=== PATIENT | female | born 1945 | race Caucasian/White ===

== ENCOUNTER 2016-09-12 15:19 | Emergency (ER) | payer MEDICARE ==
--- NOTE | 2016-09-12 15:43 | ED ---
General Adult HPI - General Chief complaint: Head Injury Stated complaint: fell, hit head Time Seen by Provider: 09/12/16 15:25 Source: patient, RN notes reviewed Mode of arrival: ambulatory Limitations: no limitations - History of Present Illness Initial comments: This is a 71-year-old female who is sitting in a chair and the chair broke and she fell sideways and hit her head against a china cabinet. Patient states there was a significant bump there initially and it is since gone down. Patient does complain of a little bit of a headache and nausea. Patient states she is on Plavix currently. Patient denies any loss of consciousness or being dazed. Patient denies any neck pain patient denies any numbness weakness. Patient has full range of motion of her neck. Patient denies any other injury at this time. Patient denies any sites of bleeding. - Related Data Home Medications Medication Instructions Recorded Confirmed Albuterol Inhaler [Ventolin Hfa 2 puff INHALATION RT-QID 09/12/16 09/12/16 Inhaler] Allopurinol [Zyloprim] 300 mg PO DAILY 09/12/16 09/12/16 Aspirin EC [Ecotrin] 325 mg PO DAILY 09/12/16 09/12/16 Augmented Betamethasone Dip 0.05% 1 applic TOPICAL BID PRN 09/12/16 09/12/16 Oint Bisoprolol [Zebeta] 5 mg PO HS 09/12/16 09/12/16 Budesonide-Formot 160-4.5 Mcg 2 puff INHALATION RT-BID 09/12/16 09/12/16 [Symbicort 160-4.5 Mcg Inhaler] Bumetanide [Bumex] 1 mg PO DAILY 09/12/16 09/12/16 Clopidogrel [Plavix] 75 mg PO DAILY 09/12/16 09/12/16 Latanoprost [Xalatan 0.005%] 1 drop BOTH EYES HS 09/12/16 09/12/16 Levofloxacin [Levaquin] 500 mg PO DAILY 09/12/16 09/12/16 Levothyroxine Sodium [Levoxyl] 175 mcg PO DAILY 09/12/16 09/12/16 Meloxicam [Mobic] 15 mg PO DAILY 09/12/16 09/12/16 Potassium Chloride ER [K-Dur 20] 20 meq PO DAILY 09/12/16 09/12/16 Simvastatin [Zocor] 20 mg PO HS 09/12/16 09/12/16 amLODIPine [Norvasc] 5 mg PO DAILY 09/12/16 09/12/16 Allergies Allergy/AdvReac Type Severity Reaction Status Date / Time Iodinated Contrast Media - Allergy Rash/Hives/ Verified 09/12/16 16:46 Oral and Itching latex Allergy Rash/Hives/ Verified 09/12/16 16:46 Itching morphine Allergy Rash/Hives/ Verified 09/12/16 16:46 Itching shellfish derived [Shellfish] Allergy Rash/Hives/ Verified 09/12/16 16:46 Itching Review of Systems ROS Statement: Those systems with pertinent positive or pertinent negative responses have been documented in the HPI. ROS Other: All systems not noted in ROS Statement are negative. Past Medical History Past Medical History: Cancer, CVA/TIA, Hyperlipidemia, Hypertension, Thyroid Disorder History of Any Multi-Drug Resistant Organisms: None Reported Past Surgical History: Orthopedic Surgery Additional Past Surgical History / Comment(s): colectomy, R lower lung removed Past Psychological History: No Psychological Hx Reported Smoking Status: Former smoker Past Alcohol Use History: Occasional Past Drug Use History: None Reported General Exam - General Exam Comments Initial Comments: GENERAL Patient is well-developed and well-nourished. Patient is in mild distress. Patient's scalp has a small hematoma on the left frontal parietal region. It is mildly tender there is no bleeding. There is no abrasion. Eyes Patient's pupils are equal and round. Extraocular motion is intact SKIN Unremarkable NEURO The patient is alert and oriented 3 PYSCH Patient has normal interpersonal interactions. MUSCULOSKELETAL No gross amounts were noted Limitations: no limitations Course Vital Signs 09/12/16 15:24 Temperature 98 F Pulse Rate 70 Respiratory 20 Rate Blood Pressure 144/65 O2 Sat by Pulse 98 Oximetry Medical Decision Making - Medical Decision Making CT of the brain shows no acute abnormality. Disposition Clinical Impression: Head injury Disposition: HOME SELF-CARE Condition: Good Instructions: Concussion (ED) Referrals: Nonstaff,Physician [Primary Care Provider] - 1-2 days Time of Disposition: 17:10
--- NOTE | 2016-09-12 16:17 | CT ---
EXAMINATION TYPE: CT brain wo con DATE OF EXAM: 09/12/2016 4:11 PM COMPARISON: NONE HISTORY: fall today with frontal injury CT DLP: [address] of the brain was performed. The ventricles, basal cisterns and sulci overlying the cerebral convexities demonstrate mild enlargem ent. There is no evidence for intracranial hemorrhage or sulcal effacement. There is decreased attenuation about the periventricular white matter and deep white matter of both c erebral hemispheres, compatible with chronic small vessel ischemia. Differential diagnosis does inclu de demyelination. No mass effects are seen.No midline shift. Osseous calvarium is intact. Mucosal thickening left maxillary sinus If symptoms persist consider MRI. IMPRESSION: 1. Age related atrophic and chronic small vessel ischemic change without acute intracranial process s een at this time.
[2016-09-12 17:43] VITALS: BP 147/68; PULSE 71; RESP 18; TEMP 97
== END 2016-09-12 17:35 | disposition home or self-care (01) ==
LOC: EC 15:19
DX: S00.03XA Contusion of scalp, initial encounter (principal); E78.5 Hyperlipidemia, unspecified; E07.9 Disorder of thyroid, unspecified; I10 Essential (primary) hypertension; Z85.9 Personal history of malignant neoplasm, unspecified; Z87.891 Personal history of nicotine dependence; Z91.040 Latex allergy status; Z91.041 Radiographic dye allergy status; Z88.5 Allergy status to narcotic agent; Z91.013 Allergy to seafood; Z86.73 Personal history of transient ischemic attack (TIA), and cerebral infarction without residual deficits; Z79.899 Other long term (current) drug therapy; W18.09XA Striking against other object with subsequent fall, initial encounter
CPT/HCPCS: 70450; 99284

== ENCOUNTER 2017-11-23 22:21 | Observation (INO) | payer MEDICARE ==
[2017-11-23] MEDS ORDERED: IBUPROFEN 800 MG TAB PO STA (23:39)
[2017-11-23] MEDS ORDERED: Acetaminophen-Codeine 300-30mg TAB PO STA (23:39)
[2017-11-23] MEDS ORDERED: ACETAMINOPHEN TAB 325 MG TAB PO STA (23:39)
[2017-11-23 23:50] LABS: Appearance,Urine Cloudy (Clear); Bilirubin,Urine Negative (Negative); Blood,Urine Negative (Negative); Color,Urine Yellow; Glucose,Urine (UA) Negative (Negative); Ketones,Urine Negative (Negative); Leukocyte Esterase,Urine Large (Negative); Mucus,Urine Rare /hpf; Nitrite,Urine Negative (Negative); PH, Urine 5.5 (5.0-8.0); Protein,Urine Trace (Negative); RBC,Urine 3 /hpf (0-5); Specific Gravity,Urine 1.021 (1.001-1.035); Squamous Epithelial Cell,Urine 4 /hpf (0-4); WBC,Urine 24 /hpf (0-5)
--- NOTE | 2017-11-23 23:53 | ED ---
General Adult HPI - General Chief complaint: Urogenital Stated complaint: Urine retention Time Seen by Provider: 11/23/17 22:57 Source: patient, RN notes reviewed, old records reviewed Mode of arrival: ambulatory Limitations: no limitations - History of Present Illness Initial comments: This is a 72-year-old female the ER for evaluation. Patient has abdominal pain right flank pain fever chills and dysuria. Patient states she has medical history of significant UTI and this does feel similar. Patient denies any other significant abdominal pain no nausea or vomiting. No recent travel history or sick contacts. - Related Data Home Medications Medication Instructions Recorded Confirmed Albuterol Inhaler [Ventolin Hfa 2 puff INHALATION RT-QID 09/12/16 11/23/17 Inhaler] Allopurinol [Zyloprim] 300 mg PO DAILY 09/12/16 11/23/17 Aspirin EC [Ecotrin] 325 mg PO DAILY 09/12/16 11/23/17 Augmented Betamethasone Dip 0.05% 1 applic TOPICAL BID PRN 09/12/16 11/23/17 Oint Bisoprolol [Zebeta] 5 mg PO HS 09/12/16 11/23/17 Budesonide-Formot 160-4.5 Mcg 2 puff INHALATION RT-BID 09/12/16 11/23/17 [Symbicort 160-4.5 Mcg Inhaler] Bumetanide [Bumex] 1 mg PO DAILY 09/12/16 11/23/17 Latanoprost [Xalatan 0.005%] 1 drop BOTH EYES HS 09/12/16 11/23/17 Meloxicam [Mobic] 15 mg PO DAILY 09/12/16 11/23/17 Potassium Chloride ER [K-Dur 20] 20 meq PO DAILY 09/12/16 11/23/17 Simvastatin [Zocor] 20 mg PO HS 09/12/16 11/23/17 Clobetasol Propionate [Clobex .05% 1 applic TOPICAL BID PRN 11/23/17 11/23/17 Shampoo] Levothyroxine Sodium [Synthroid] 150 mcg PO DAILY 11/23/17 11/23/17 Losartan Potassium [Cozaar] 100 mg PO DAILY 11/23/17 11/23/17 Mirabegron [Myrbetriq] 50 mg PO DAILY 11/23/17 11/23/17 Allergies Allergy/AdvReac Type Severity Reaction Status Date / Time clindamycin Allergy Rash/Hives Verified 11/23/17 23:27 Iodinated Contrast- Oral and Allergy Rash/Hives/ Verified 11/23/17 23:27 IV Dye Itching [Iodinated Contrast Media - Oral and] latex Allergy Rash/Hives/ Verified 11/23/17 23:27 Itching morphine Allergy Rash/Hives/ Verified 11/23/17 23:27 Itching shellfish derived [Shellfish] Allergy Rash/Hives/ Verified 11/23/17 23:27 Itching Review of Systems ROS Statement: Those systems with pertinent positive or pertinent negative responses have been documented in the HPI. ROS Other: All systems not noted in ROS Statement are negative. Past Medical History Past Medical History: Cancer, CVA/TIA, Hyperlipidemia, Hypertension, Thyroid Disorder History of Any Multi-Drug Resistant Organisms: None Reported Past Surgical History: Orthopedic Surgery Additional Past Surgical History / Comment(s): colectomy, R lower lung removed Past Psychological History: No Psychological Hx Reported Smoking Status: Former smoker Past Alcohol Use History: None Reported Past Drug Use History: None Reported General Exam Limitations: no limitations General appearance: alert, in no apparent distress Head exam: Present: atraumatic, normocephalic, normal inspection Eye exam: Present: normal appearance, PERRL, EOMI. Absent: scleral icterus, conjunctival injection, periorbital swelling ENT exam: Present: normal exam, mucous membranes moist Neck exam: Present: normal inspection. Absent: tenderness, meningismus, lymphadenopathy Respiratory exam: Present: normal lung sounds bilaterally. Absent: respiratory distress, wheezes, rales, rhonchi, stridor Cardiovascular Exam: Present: regular rate, normal rhythm, normal heart sounds. Absent: systolic murmur, diastolic murmur, rubs, gallop, clicks GI/Abdominal exam: Present: soft, normal bowel sounds. Absent: distended, tenderness, guarding, rebound, rigid Extremities exam: Present: normal inspection, full ROM, normal capillary refill. Absent: tenderness, pedal edema, joint swelling, calf tenderness Back exam: Present: normal inspection Neurological exam: Present: alert, oriented X3, CN II-XII intact Psychiatric exam: Present: normal affect, normal mood Skin exam: Present: warm, dry, intact, normal color. Absent: rash Course Vital Signs 11/23/17 11/23/17 22:24 23:45 Temperature 98.4 F 101.4 F H Pulse Rate 100 98 Respiratory 18 19 Rate Blood Pressure 145/79 158/67 O2 Sat by Pulse 96 96 Oximetry - Reevaluation(s) Reevaluation #1: 11/24/17 01:21 Patient feels better, nausea no fever, mild cough. Patient is positive pneumonia. Medical Decision Making - Medical Decision Making 72 female the ER, positive fever positive pneumonia is identified. Weakness fever or chills. Patient to be admitted for IV antibiotics - Lab Data Lab Results 11/23/17 Range/Units 22:40 Urine Color Yellow Urine Appearance Cloudy H (Clear) Urine pH 5.5 (5.0-8.0) Ur Specific Wana 1.021 (1.001-1.035) Urine Protein Trace H (Negative) Urine Glucose (UA) Negative (Negative) Urine Ketones Negative (Negative) Urine Blood Negative (Negative) Urine Nitrite Negative (Negative) Urine Bilirubin Negative (Negative) Urine Urobilinogen 2.0 (<2.0) mg/dL Ur Leukocyte Esterase Large H (Negative) Urine RBC 3 (0-5) /hpf Urine WBC 24 H (0-5) /hpf Ur Squamous Epith Cells 4 (0-4) /hpf Urine Mucus Rare H (None) /hpf - Radiology Data Radiology results: report reviewed (CT abdomen pelvis is negative chest x-ray positive pneumonia.), image reviewed Disposition Clinical Impression: Fever, Community acquired pneumonia Disposition: ADMITTED IP TO THIS [facility] Condition: Good Is patient prescribed a controlled substance at d/c from ED?: No Referrals: None,Stated [Primary Care Provider] - 1-2 days
--- NOTE | 2017-11-24 00:20 | CT ---
EXAMINATION TYPE: CT abdomen pelvis wo con DATE OF EXAM: 11/24/2017 COMPARISON: NONE HISTORY: Change in urination CT DLP: 2295.40 mGycm Automated exposure control for dose reduction was used. TECHNIQUE: Helical acquisition of images was performed from the lung bases through the pelvis. FINDINGS: There is a 7 x 5 cm area of consolidation at the posterior medial right lung base. There are apparent surgical clips in the right lower lobe. There is pleural thickening at the right lung base. There ar e small hiatal hernia. Liver shows no focal defect. Gallbladder is contracted. There are small multiple calcified splenic gr anulomata. There is no pancreatic mass. The bile ducts are not dilated. There is no adrenal mass. Kidneys have normal size. There is probably a 2 cm cortical cyst on the pos terior left kidney. There is 3 cm cortical cyst posterior right kidney. The ureters are not dilated. There is no hydronephrosis. There is no retroperitoneal adenopathy. Abdominal aorta is atheromatous. There is no ascites. Bladder distends smoothly. There is no evidence of a pelvic mass. There are clip s from surgery in the rectosigmoid colon. Appendix is not definitely seen. There is no sign of append icitis. I see no bony destructive process. IMPRESSION: PREVIOUS RIGHT LUNG SURGERY. RIGHT LOWER LOBE PULMONARY CONSOLIDATION WITH PLEURAL THICKENING. THIS C OULD RELATE TO BRONCHOPNEUMONIA. TUMOR IS NOT EXCLUDED. NO RENAL OBSTRUCTION. BILATERAL RENAL CYSTS. NO ACUTE ABNORMALITY SEEN WITHIN THE ABDOMEN AND PELVIS.
[2017-11-24] MEDS ORDERED: LEVOFLOXACIN 750MG-D5W PMX 750 MG in DEXTROSE/WATER 1 150ML.BAG IVPB STA (00:47)
[2017-11-24] MEDS ORDERED: SODIUM CHLORIDE 0.9% 500 ML IV STA (00:47)
[2017-11-24] MEDS ORDERED: IPRATROPIUM-ALBUTEROL 3 ML NEB INHALATION STA (00:47)
[2017-11-24] MEDS ORDERED: SODIUM CHLORIDE 0.9% 1,000 ML IV STA ×2 (00:47)
[2017-11-24] MEDS ORDERED: PNEUMONIA PROTOCOL UTILIZED 1 EACH MISC PO PRN (01:15)
[2017-11-24 01:21] LABS: Basophils # (A) 0.1 k/uL (0-0.2); Basophils % (A) 0 %; Eosinophils # (A) 0.1 k/uL (0-0.7); Eosinophils % (A) 1 %; HGB 11.2 gm/dL (11.4-16.0); Lymphocytes # (A) 1.1 k/uL (1.0-4.8); Lymphocytes % (A) 11 %; MCH 29.2 pg (25.0-35.0); MCHC 33.1 g/dL (31.0-37.0); MCV 88.3 fL (80.0-100.0); Mean Platelet Volume 7.1; Monocytes # (A) 0.8 k/uL (0-1.0); Monocytes % (A) 8 %; Neutrophils # (A) 7.8 k/uL (1.3-7.7); Neutrophils % (A) 77 %; Platelet Count 279 k/uL (150-450); RBC 3.85 m/uL (3.80-5.40); RDW 14.9 % (11.5-15.5); WBC 10.1 k/uL (3.8-10.6)
[2017-11-24 01:29] LABS: Albumin 3.4 g/dL (3.5-5.0); Magnesium 1.9 mg/dL (1.6-2.3); Potassium 4.3 mmol/L (3.5-5.1); Total Bilirubin 0.3 mg/dL (0.2-1.3); Total Protein 5.9 g/dL (6.3-8.2)
[2017-11-24] MEDS: SODIUM CHLORIDE 0.9% 1,000 ML IV SCH ×2 (01:31→10:47)
[2017-11-24 01:33] LABS: Partial Thromboplastin Time 24.7 sec (22.0-30.0)
[2017-11-24 01:42] LABS: Creatine Kinase 463 U/L (30-135)
[2017-11-24 01:55] LABS: Troponin I <0.012 ng/mL (0.000-0.034)
[2017-11-24 01:56] LABS: Creatine Kinase MB 2.5 ng/mL (0.0-2.4)
--- NOTE | 2017-11-24 02:13 | XR ---
EXAMINATION TYPE: XR chest 2V DATE OF EXAM: 11/24/2017 COMPARISON: NONE HISTORY: Fever and difficulty breathing TECHNIQUE: Frontal and lateral views of the chest are obtained. FINDINGS: There is blunting of right costophrenic angle. There is evidence of mild infiltrate at the right lung base. The left lung is clear. There is no gross heart failure. IMPRESSION: Right pleural effusion and right lower lobe infiltrate.
[2017-11-24 03:42] VITALS: RESP 16
[2017-11-24] MEDS ORDERED: CLOBETASOL PROP 0.05% OINT 15GM TOPICAL PRN (05:31)
--- NOTE | 2017-11-24 06:22 | P.HPIM ---
History of Present Illness H&P Date: 11/24/17 Chief Complaint: Chills 72-year-old female with past medical history of colon cancer and hypertension. Patient presented to the hospital due to 4 day history of chills. She has traveled from [place] to here to visit her family and since Thursday when she arrived she has been having chills and feeling cold but surely during the night. Otherwise denies any symptoms of upper respiratory infection. She reported some brief period of right flank pain which she thought this from arthritis she said there was mainly discomfort 6-7 out of 10 in severity that happened on Thursday night nonradiating pain and went away on its own. She reports some changes in her urine was darker now but otherwise denies any dysuria. She always has frequent urine. And she recalls history of recurrent urinary tract infection last time was 3 years ago. She denies using any catheter home. Her daughter took her temperature and was high for which she decided come to the hospital for further care. Patient also recalls lung surgery where they removed a wedge piece of the right lower lung due to suspicion of cancer however eventually was diagnosed with pneumonia. Currently she feels way better and is asking about when she can go home. Patient otherwise denies any headache nausea or vomiting denies any chest pain or trouble breathing denies any coughing denies any sore throat or runny nose denies any hearing or vision changes denies any focal neurologic deficits Review of Systems Pertinent positives as noted in HPI. All other systems were reviewed and are negative Past Medical History Past Medical History: Cancer, CVA/TIA, Hyperlipidemia, Hypertension, Thyroid Disorder History of Any Multi-Drug Resistant Organisms: None Reported Past Surgical History: Orthopedic Surgery Additional Past Surgical History / Comment(s): colectomy, R lower lung removed Past Anesthesia/Blood Transfusion Reactions: No Reported Reaction Past Psychological History: No Psychological Hx Reported Smoking Status: Former smoker Past Alcohol Use History: None Reported Past Drug Use History: None Reported - Past Family History Mother Family Medical History: Myocardial Infarction ([place]) Father Family Medical History: Diabetes Mellitus Medications and Allergies Home Medications Medication Instructions Recorded Confirmed Type Albuterol Inhaler [Ventolin Hfa 2 puff INHALATION RT-QID 09/12/16 11/23/17 History Inhaler] Allopurinol [Zyloprim] 300 mg PO DAILY 09/12/16 11/23/17 History Aspirin EC [Ecotrin] 325 mg PO DAILY 09/12/16 11/23/17 History Augmented Betamethasone Dip 0.05% 1 applic TOPICAL BID PRN 09/12/16 11/23/17 History Oint Bisoprolol [Zebeta] 5 mg PO HS 09/12/16 11/23/17 History Budesonide-Formot 160-4.5 Mcg 2 puff INHALATION RT-BID 09/12/16 11/23/17 History [Symbicort 160-4.5 Mcg Inhaler] Bumetanide [Bumex] 1 mg PO DAILY 09/12/16 11/23/17 History Latanoprost [Xalatan 0.005%] 1 drop BOTH EYES HS 09/12/16 11/23/17 History Meloxicam [Mobic] 15 mg PO DAILY 09/12/16 11/23/17 History Potassium Chloride ER [K-Dur 20] 20 meq PO DAILY 09/12/16 11/23/17 History Simvastatin [Zocor] 20 mg PO HS 09/12/16 11/23/17 History Clobetasol Propionate [Clobex .05% 1 applic TOPICAL BID PRN 11/23/17 11/23/17 History Shampoo] Levothyroxine Sodium [Synthroid] 150 mcg PO DAILY 11/23/17 11/23/17 History Losartan Potassium [Cozaar] 100 mg PO DAILY 11/23/17 11/23/17 History Mirabegron [Myrbetriq] 50 mg PO HS 11/23/17 11/24/17 History Allergies Allergy/AdvReac Type Severity Reaction Status Date / Time clindamycin Allergy Rash/Hives Verified 11/23/17 23:27 Iodinated Contrast- Oral and Allergy Rash/Hives/ Verified 11/23/17 23:27 IV Dye Itching [Iodinated Contrast Media - Oral and] latex Allergy Rash/Hives/ Verified 11/23/17 23:27 Itching morphine Allergy Rash/Hives/ Verified 11/23/17 23:27 Itching shellfish derived [Shellfish] Allergy Rash/Hives/ Verified 11/23/17 23:27 Itching Physical Exam Vitals: Vital Signs Temp Pulse Pulse Resp BP BP Pulse Ox 11/24/17 03:15 97.6 F 73 16 119/61 97 11/24/17 03:02 72 11/24/17 02:53 74 97 11/24/17 02:34 98.1 F 72 18 98/49 97 11/24/17 01:32 82 18 96/45 95 11/23/17 23:45 101.4 F H 98 19 158/67 96 11/23/17 22:24 98.4 F 100 18 145/79 96 Intake and Output 11/23/17 11/23/17 11/24/17 14:59 22:59 06:59 Other: Voiding Method Toilet Weight 128.367 kg Constitutional: No acute distress, conversant, pleasant Eyes: Anicteric sclerae, moist conjunctiva, no lid-lag Pupils equal round reactive to light ENMT: NC/AT Oropharynx clear, no erythema, or exudates Neck: Supple, FROM, no masses, or JVD No carotid bruits No thyromegaly Lungs: Clear to auscultation Clear to percussion Normal respiratory effort, no accessory muscle use Cardiovascular: Heart regular in rate and rhythm, No murmurs, gallops, or rubs No peripheral edema Abdominal: Soft, obese limiting exam Nontender, no guarding, rebound or rigidity Abdomen moving with respiration Normoactive bowel sounds No hepatomegaly, No splenomegaly No palpable mass No abdominal wall hernia noted Skin: Normal temperature, tone, texture, turgor No induration No subcutaneous nodules No ulcers Patient has lesions related to psoriasis, with the big one covering most of the surface of the anterior potts of the left leg Extremities: No digital cyanosis No clubbing Pedal pulses intact and symmetrical Radial pulses intact and symmetrical No calf tenderness Psychiatric: Alert and oriented to person, place and time Appropriate affect fair judgment Neuro Muscles Strength 5/5 in all 4 extremities Sensation to light touch grossly present throughout Cranial nerves II-XII grossly intact No focal sensory deficits Lymphatics: no palpable cervical or supraclavicular , or inguinal lymph nodes Results CBC & Chem 7: 11/24/17 00:45 11/24/17 00:45 Labs: Abnormal Lab Results - Last 24 Hours (Table) 11/23/17 11/24/17 11/24/17 Range/Units 22:40 00:45 00:45 Hgb 11.2 L (11.4-16.0) gm/dL Neutrophils # 7.8 H (1.3-7.7) k/uL Sodium (137-145) mmol/L BUN (7-17) mg/dL Glucose (74-99) mg/dL Total Creatine Kinase 463 H (30-135) U/L CK-MB (CK-2) 2.5 H* (0.0-2.4) ng/mL Total Protein (6.3-8.2) g/dL Albumin (3.5-5.0) g/dL Urine Appearance Cloudy H (Clear) Urine Protein Trace H (Negative) Ur Leukocyte Esterase Large H (Negative) Urine WBC 24 H (0-5) /hpf Urine Mucus Rare H (None) /hpf 11/24/17 Range/Units 00:45 Hgb (11.4-16.0) gm/dL Neutrophils # (1.3-7.7) k/uL Sodium 136 L (137-145) mmol/L BUN 25 H (7-17) mg/dL Glucose 111 H (74-99) mg/dL Total Creatine Kinase (30-135) U/L CK-MB (CK-2) (0.0-2.4) ng/mL Total Protein 5.9 L (6.3-8.2) g/dL Albumin 3.4 L (3.5-5.0) g/dL Urine Appearance (Clear) Urine Protein (Negative) Ur Leukocyte Esterase (Negative) Urine WBC (0-5) /hpf Urine Mucus (None) /hpf Thrombosis Risk Factor Assmnt - Choose All That Apply Each Factor Represents 1 point: Obesity (BMI >25), Serious lung disease incl. pneumonia (< 1month) Other Risk Factors: Yes Each Risk Factor Represents 2 Points: Age 61-74 years Thrombosis Risk Factor Assessment Total Risk Factor Score: 4 Thrombosis Risk Factor Assessment Level: Moderate Risk Assessment and Plan Assessment: 72-year-old female with history of colon cancer and hypertension. Presented due to chills for the past 4 days with fever and Thursday nights, she was also having some dark urine she was concerned regarding urinary tract infection for which she decided come the hospital. She is currently visiting from [place] and staying with her family. Patient admitted for suspected pneumonia however she is denying any clinical symptoms of pneumonia. Plan: #Acute urinary tract infection, no chronic catheter Patient with history of multiple UTIs in the past last attack 3 years ago Patient started on Bactrim Follow-up cultures Gentle IV fluid hydration #Mild anemia Patient denies any GI bleeding Follow-up outpatient #Psoriasis Somatic control Consider emollient #DVT prophylaxis on Lovenox subcu #Obstructive sleep apnea Patient encouraged to use CPAP #Hypertension Currently controlled continue home meds #History of asthma/COPD Continue with breathing treatments Patient not on home oxygen DuoNeb's when necessary as needed #Diet as tolerated #Hypothyroidism Currently stable Continue with levothyroxine Patient is eager to go home, will continue to monitor the patient vital signs and morning labs We'll monitor the patient's if she spikes any fevers and follow-up on cultures Surrogate decision-maker: Patient daughter CODE STATUS: Full code Discussed with: Patient, ER, Anticipated discharge: [address]: Home A total of55 minutes was spent on the care of this complex patient more than 50 % of the time was spent in counseling and care coordination.
[2017-11-24 06:23] VITALS: BP 121/57; TEMP 97.5
[2017-11-24] MEDS ORDERED: LEVOTHYROXINE 75 MCG TAB PO SCH (06:30)
[2017-11-24] MEDS: IPRATROPIUM-ALBUTEROL 3 ML NEB INHALATION SCH ×2 (07:07→10:54)
[2017-11-24] MEDS ORDERED: SYMBICORT 160-4.5 MCG INHALER INHALATION SCH (08:00)
[2017-11-24 08:44] LABS: HCT 33.6 % (34.0-46.0); HGB 10.6 gm/dL (11.4-16.0); MCH 28.4 pg (25.0-35.0); MCHC 31.7 g/dL (31.0-37.0); MCV 89.7 fL (80.0-100.0); Mean Platelet Volume 7.3; Platelet Count 265 k/uL (150-450); RBC 3.74 m/uL (3.80-5.40); RDW 14.9 % (11.5-15.5); WBC 7.8 k/uL (3.8-10.6)
[2017-11-24] MEDS ORDERED: LOSARTAN 50 MG TAB PO SCH (09:00)
[2017-11-24] MEDS ORDERED: ASPIRIN 325 MG TAB PO SCH (09:00)
[2017-11-24] MEDS ORDERED: ENOXAPARIN 40 MG/0.4 ML SYRINGE SQ SCH (09:00)
[2017-11-24] MEDS ORDERED: SULFAMETHOX-TMP 800-160MG 1 EACH TAB PO SCH (09:00)
[2017-11-24] MEDS ORDERED: ALLOPURINOL 300 MG TAB PO SCH (09:00)
[2017-11-24 11:06] VITALS: PULSE 76
--- NOTE | 2017-11-24 12:13 | P.DS ---
Providers Date of admission: 11/24/17 01:16 Expected date of discharge: 11/24/17 Attending physician: Alan Boateng MD Primary care physician: Stated None - Discharge Diagnosis(es) (1) UTI (urinary tract infection) Current Visit: Yes Status: Acute (2) Scarring of lung Current Visit: Yes Status: Acute (3) Mild anemia Current Visit: Yes Status: Acute (4) HTN (hypertension) Current Visit: Yes Status: Acute (5) RAQUEL (obstructive sleep apnea) Current Visit: Yes Status: Acute (6) Morbid obesity Current Visit: Yes Status: Acute (7) History of colon cancer Current Visit: Yes Status: Acute (8) Hypothyroid Current Visit: Yes Status: Acute Hospital Course: Patient is a 72-year-old female with a history of prior colon cancer, known pulmonary nodule with prior right resection, obesity, hypertension, and dyslipidemia who presented to the hospital with complaints of flank pain and dark urine. In the ER she underwent an extensive evaluation. Her initial vital signs were within normal limits, but she didn spike a fever 101.4 approximately one hour after presenting to the ER. She had a CT of the abdomen and pelvis which showed scarring and possible tumor in the right lung base, but no signs of pyelonephritis. She had a normal white blood cell count, will close found to have positive leukocyte esterase with negative nitrate. She was started on antibiotics and IV fluids and admitted for further monitoring and care. Upon discussion with the patient she had a known history of prior abnormality in the right lung base which is being followed with yearly CAT scans by her PCP after she had a wedge resection not concerned with cancer. In the morning after admission her flank pain had resolved, her urine had cleared, and she was no longer having dysuria. She was subsequently determined stable for discharge home. She was given a prescription for 5 days worth of Bactrim. She will follow up with her PCP Dr. Bui on discharge. I've asked her to stay off the Mybetric she has finished her prescription of antibiotics. I have alerted her that we will call her should her urine culture not be sensitive to Bactrim. Patient seen and examined at bedside. Flank pain resolved, dysuria resolved, urine back to normal color. Moving back to [facility] and will follow with Dr. Bui. Vital signs reviewed and stable. General: non toxic, no distress, appears at stated age, Obese Derm: warm, dry Head: atraumatic, normocephalic, symmetric Eyes: EOMI, no lid lag, anicteric sclera Mouth: no lip lesion, mucus membranes moist Cardiovascular: S1S2 reg, no murmur, positive posterior tibial pulse bilateral, Lungs: CTA bilateral, no rhonchi, no rales , no accessory muscle use Abdominal: soft, nontender to palpation, no guarding, no appreciable organomegaly Neuro: CN II-XI grossly intact, no focal neuro deficits Psych: Alert, oriented, appropriate affect A total of 35 minutes of time were spent preparing this complex discharge summary . Patient Condition at Discharge: Good Plan - Discharge Summary New Discharge Prescriptions: New Sulfamethox-Tmp 800-160Mg [Bactrim DS 800-160 mg] 1 each PO BID #10 tab Continue Simvastatin [Zocor] 20 mg PO HS Budesonide-Formot 160-4.5 Mcg [Symbicort 160-4.5 Mcg Inhaler] 2 puff INHALATION RT-BID Aspirin EC [Ecotrin] 325 mg PO DAILY Potassium Chloride ER [K-Dur 20] 20 meq PO DAILY Meloxicam [Mobic] 15 mg PO DAILY Bumetanide [BUMEX] 1 mg PO DAILY Bisoprolol [Zebeta] 5 mg PO HS Latanoprost [Xalatan 0.005%] 1 drop BOTH EYES HS Allopurinol [Zyloprim] 300 mg PO DAILY Albuterol Inhaler [Ventolin Hfa Inhaler] 2 puff INHALATION RT-QID Augmented Betamethasone Dip 0.05% Oint 1 applic TOPICAL BID PRN PRN Reason: Psoriasis Levothyroxine Sodium [Synthroid] 150 mcg PO DAILY Losartan Potassium [Cozaar] 100 mg PO DAILY Clobetasol Propionate [Clobex .05% Shampoo] 1 applic TOPICAL BID PRN PRN Reason: Psychosis Discontinued Mirabegron [Myrbetriq] 50 mg PO HS Discharge Medication List Albuterol Inhaler [Ventolin Hfa Inhaler] 2 puff INHALATION RT-QID 09/12/16 [ History] Allopurinol [Zyloprim] 300 mg PO DAILY 09/12/16 [History] Aspirin EC [Ecotrin] 325 mg PO DAILY 09/12/16 [History] Augmented Betamethasone Dip 0.05% Oint 1 applic TOPICAL BID PRN 09/12/16 [ History] Bisoprolol [Zebeta] 5 mg PO HS 09/12/16 [History] Budesonide-Formot 160-4.5 Mcg [Symbicort 160-4.5 Mcg Inhaler] 2 puff INHALATION RT-BID 09/12/16 [History] Bumetanide [BUMEX] 1 mg PO DAILY 09/12/16 [History] Latanoprost [Xalatan 0.005%] 1 drop BOTH EYES HS 09/12/16 [History] Meloxicam [Mobic] 15 mg PO DAILY 09/12/16 [History] Potassium Chloride ER [K-Dur 20] 20 meq PO DAILY 09/12/16 [History] Simvastatin [Zocor] 20 mg PO HS 09/12/16 [History] Clobetasol Propionate [Clobex .05% Shampoo] 1 applic TOPICAL BID PRN 11/23/17 [ History] Levothyroxine Sodium [Synthroid] 150 mcg PO DAILY 11/23/17 [History] Losartan Potassium [Cozaar] 100 mg PO DAILY 11/23/17 [History] Sulfamethox-Tmp 800-160Mg [Bactrim DS 800-160 mg] 1 each PO BID #10 tab [Rx] Follow up Appointment(s)/Referral(s): Tommy Bui MD [REFERRING] - 1 Week Patient Instructions/Handouts: Urinary Tract Infection in Women (DC) Activity/Diet/Wound Care/Special Instructions: Please stay off Myrbetriq until you complete Antibiotics for urinary tract infection Cardiac, low fat diet. Activity as tolerated. CPAP at home. Discharge Disposition: HOME SELF-CARE Pending Studies Pending Results: urine culture
[2017-11-24] MEDS ORDERED: LATANOPROST 0.005% OPHTH DROPS 2.5 ML BTL BOTH EYES SCH (21:00)
[2017-11-24] MEDS ORDERED: BISOPROLOL 5 MG TAB PO SCH (21:00)
[2017-11-24] MEDS ORDERED: NON-FORMULARY DRUG (Mirabegron [Myrbetriq] 50 MG) PO SCH (21:00)
[2017-11-24] MEDS ORDERED: ATORVASTATIN 10 MG TAB PO SCH (21:00)
[2017-11-25] MEDS ORDERED: LEVOFLOXACIN 750MG-D5W PMX 750 MG in DEXTROSE/WATER 1 150ML.BAG IVPB SCH (01:00)
== END 2017-11-24 13:02 | disposition home or self-care (01) ==
LOC: EC 22:21 → INTOOBSV 11-24 01:16 → 4MS4W 11-24 01:16 → UNDODISIN 11-24 13:02
PROVIDERS: ADMIT Internal Medicine; ATTEND Internal Medicine
DX: N39.0 Urinary tract infection, site not specified (principal); J98.4 Other disorders of lung; I10 Essential (primary) hypertension; E78.5 Hyperlipidemia, unspecified; L40.9 Psoriasis, unspecified; E66.01 Morbid (severe) obesity due to excess calories; Z68.43 Body mass index [BMI] 50.0-59.9, adult; D64.9 Anemia, unspecified; G47.33 Obstructive sleep apnea (adult) (pediatric); Z99.89 Dependence on other enabling machines and devices; J44.9 Chronic obstructive pulmonary disease, unspecified; E03.9 Hypothyroidism, unspecified; Z79.82 Long term (current) use of aspirin; Z79.51 Long term (current) use of inhaled steroids; Z79.1 Long term (current) use of non-steroidal anti-inflammatories (NSAID); Z79.890 Hormone replacement therapy; Z87.440 Personal history of urinary (tract) infections; Z85.038 Personal history of other malignant neoplasm of large intestine; Z86.73 Personal history of transient ischemic attack (TIA), and cerebral infarction without residual deficits; Z87.891 Personal history of nicotine dependence; Z88.1 Allergy status to other antibiotic agents; Z91.041 Radiographic dye allergy status; Z91.040 Latex allergy status; Z88.5 Allergy status to narcotic agent; Z91.013 Allergy to seafood; Z82.49 Family history of ischemic heart disease and other diseases of the circulatory system; Z83.3 Family history of diabetes mellitus
CPT/HCPCS: 99285 ×2; 96365 ×2; 96361; 96372; 36415; 94640 ×2; 94760; 93005; 83880; 80053; 82550; 82553; 83735; 84484; 85025; 85027; 85610; 85730; 81001; 87040; 87086; 71046; 74176; G0378; J1650; J1956

== ENCOUNTER → 2017-12-15 | Outpatient (CLI) | payer MEDICARE | END | disposition home or self-care (01) | LOC: LABWHC1 09:20 | PROVIDERS: ATTEND Internal Medicine | DX: E03.9 Hypothyroidism, unspecified (principal) | CPT/HCPCS: 36415; 84443 ==

== ENCOUNTER 2021-02-17 22:44 | Emergency (ER) | payer MEDICARE ==
[2021-02-17 22:55] VITALS: RESP 18
[2021-02-17 23:52] LABS: Anisocytosis Slight; Basophils # (A) 0.1 k/uL (0-0.2); Basophils % (A) 1 %; Eosinophils # (A) 0.1 k/uL (0-0.7); Eosinophils % (A) 1 %; HCT 32.3 % (34.0-46.0); HGB 10.4 gm/dL (11.4-16.0); Lymphocytes # (A) 0.9 k/uL (1.0-4.8); Lymphocytes % (A) 10 %; MCH 29.1 pg (25.0-35.0); MCHC 32.1 g/dL (31.0-37.0); MCV 90.5 fL (80.0-100.0); Mean Platelet Volume 7.1; Monocytes # (A) 0.7 k/uL (0-1.0); Monocytes % (A) 7 %; Neutrophils # (A) 7.6 k/uL (1.3-7.7); Neutrophils % (A) 80 %; Platelet Count 333 k/uL (150-450); RBC 3.57 m/uL (3.80-5.40); RDW 17.9 % (11.5-15.5); WBC 9.5 k/uL (3.8-10.6)
[2021-02-18] LABS: Appearance,Urine Cloudy (Clear); Bacteria,Urine Rare /hpf; Bilirubin,Urine Negative (Negative); Blood,Urine Negative (Negative); Color,Urine Yellow; Glucose,Urine (UA) Negative (Negative); Hyaline Casts,Urine 30 /lpf (0-2); Ketones,Urine Negative (Negative); Leukocyte Esterase,Urine Large (Negative); Mucus,Urine Many /hpf; Nitrite,Urine Negative (Negative); Protein,Urine Trace (Negative); RBC,Urine 8 /hpf (0-5); Specific Gravity,Urine 1.027 (1.001-1.035); Squamous Epithelial Cell,Urine 4 /hpf (0-4); WBC,Urine 66 /hpf (0-5)
[2021-02-18 00:06] LABS: Albumin 3.5 g/dL (3.5-5.0); Calcium 9.7 mg/dL (8.4-10.2); Potassium 4.6 mmol/L (3.5-5.1); Total Bilirubin 0.2 mg/dL (0.2-1.3); Total Protein 6.4 g/dL (6.3-8.2)
[2021-02-18] MEDS ORDERED: cefTRIAXone 1,000 MG VIAL (IM USE) IM STA (00:16)
--- NOTE | 2021-02-18 00:19 | ED ---
Female Urogenital HPI - General Chief complaint: Urogenital Stated complaint: Fever Time Seen by Provider: 02/17/21 23:02 Source: patient, RN notes reviewed Mode of arrival: ambulatory - History of Present Illness Initial comments: Patient is a 75-year-old female that presents to emergency department complaining of dysuria and frequency. She notes she has a history of UTIs and this feels very similar to a UTI. She notes she is also been having fevers on and off. She denied any other issues or complaints at this time. She was otherwise a well-appearing 75-year-old female in no apparent distress or pain. She denied any chest pain first breath headache nausea vomiting diarrhea constipation fever fatigue chills. - Related Data Home Medications Medication Instructions Recorded Confirmed Albuterol Inhaler (Mhu) [Ventolin 2 puff INHALATION RT-QID 09/12/16 11/23/17 Hfa Inhaler (Mhu)] Aspirin EC [Ecotrin] 325 mg PO DAILY 09/12/16 11/23/17 Augmented Betamethasone Dip 0.05% 1 applic TOPICAL BID PRN 09/12/16 11/23/17 Oint Bisoprolol [Zebeta] 5 mg PO HS 09/12/16 11/23/17 Budesonide-Formot 160-4.5 Mcg 2 puff INHALATION RT-BID 09/12/16 11/23/17 [Symbicort 160-4.5 Mcg Inhaler] Bumetanide [BUMEX] 1 mg PO DAILY 09/12/16 11/23/17 Latanoprost [Xalatan 0.005%] 1 drop BOTH EYES HS 09/12/16 11/23/17 Meloxicam [Mobic] 15 mg PO DAILY 09/12/16 11/23/17 Potassium Chloride ER [K-Dur 20] 20 meq PO DAILY 09/12/16 11/23/17 Simvastatin [Zocor] 20 mg PO HS 09/12/16 11/23/17 allopurinoL [Zyloprim] 300 mg PO DAILY 09/12/16 11/23/17 Clobetasol Propionate [Clobex .05% 1 applic TOPICAL BID PRN 11/23/17 11/23/17 Shampoo] Levothyroxine Sodium [Synthroid] 150 mcg PO DAILY 11/23/17 11/23/17 Losartan Potassium [Cozaar] 100 mg PO DAILY 11/23/17 11/23/17 Previous Rx's Medication Instructions Recorded Sulfamethox-Tmp 800-160Mg [Bactrim 1 each PO BID #10 tab 11/24/17 DS 800-160 mg] Cephalexin [Keflex] 500 mg PO Q6HR #40 cap 02/18/21 Allergies Allergy/AdvReac Type Severity Reaction Status Date / Time clindamycin Allergy Rash/Hives Verified 02/17/21 22:55 Iodinated Contrast Media Allergy Rash/Hives/ Verified 02/17/21 22:55 [Iodinated Contrast Media - Itching Oral and] latex Allergy Rash/Hives/ Verified 02/17/21 22:55 Itching morphine Allergy Rash/Hives/ Verified 02/17/21 22:55 Itching shellfish derived [Shellfish] Allergy Rash/Hives/ Verified 02/17/21 22:55 Itching Review of Systems ROS Statement: Those systems with pertinent positive or pertinent negative responses have been documented in the HPI. ROS Other: All systems not noted in ROS Statement are negative. Past Medical History Past Medical History: Cancer, CVA/TIA, Hyperlipidemia, Hypertension, Thyroid Disorder Additional Past Medical History / Comment(s): breast History of Any Multi-Drug Resistant Organisms: None Reported Past Surgical History: Orthopedic Surgery Additional Past Surgical History / Comment(s): colectomy, R lower lung removed Past Anesthesia/Blood Transfusion Reactions: No Reported Reaction Past Psychological History: No Psychological Hx Reported Smoking Status: Never smoker Past Alcohol Use History: None Reported Past Drug Use History: None Reported - Past Family History Mother Family Medical History: Myocardial Infarction ([place]) Father Family Medical History: Diabetes Mellitus General Exam General appearance: alert, in no apparent distress, obese Head exam: Present: atraumatic, normocephalic, normal inspection Eye exam: Present: normal appearance, PERRL, EOMI. Absent: scleral icterus, conjunctival injection, periorbital swelling ENT exam: Present: normal exam, mucous membranes moist Neck exam: Present: normal inspection Respiratory exam: Present: normal lung sounds bilaterally. Absent: respiratory distress, wheezes, rales, rhonchi, stridor Cardiovascular Exam: Present: regular rate, normal rhythm, normal heart sounds. Absent: systolic murmur, diastolic murmur, rubs, gallop, clicks GI/Abdominal exam: Present: soft, normal bowel sounds. Absent: distended, tenderness, guarding, rebound, rigid Extremities exam: Present: normal inspection, full ROM, normal capillary refill. Absent: tenderness, pedal edema, joint swelling, calf tenderness Back exam: Present: normal inspection, full ROM. Absent: tenderness, CVA tenderness (R), CVA tenderness (L) Neurological exam: Present: alert, oriented X3 Psychiatric exam: Present: normal affect, normal mood Skin exam: Present: warm, dry, intact, normal color. Absent: rash Course Vital Signs 02/17/21 22:50 Temperature 98.6 F Pulse Rate 110 H Respiratory 18 Rate Blood Pressure 112/64 O2 Sat by Pulse 96 Oximetry Medical Decision Making - Medical Decision Making 75-year-old female with urinary tract infection symptoms for the past several days. Basic labs, urinalysis ordered. Labs unremarkable. Urinalysis shows 66 white blood cells, 1 g Rocephin ordered. Patient will be sent antibiotics to pharmacy. Case discussed with Dr. Shipman, patient discharge home. Follow-up primary care. - Lab Data Result diagrams: 02/17/21 23:33 02/17/21 23:33 Lab Results 02/17/21 02/17/21 02/17/21 Range/Units 23:33 23:33 23:33 WBC 9.5 (3.8-10.6) k/uL RBC 3.57 L (3.80-5.40) m/uL Hgb 10.4 L (11.4-16.0) gm/dL Hct 32.3 L (34.0-46.0) % MCV 90.5 (80.0-100.0) fL MCH 29.1 (25.0-35.0) pg MCHC 32.1 (31.0-37.0) g/dL RDW 17.9 H (11.5-15.5) % Plt Count 333 (150-450) k/uL MPV 7.1 Neutrophils % 80 % Lymphocytes % 10 % Monocytes % 7 % Eosinophils % 1 % Basophils % 1 % Neutrophils # 7.6 (1.3-7.7) k/uL Lymphocytes # 0.9 L (1.0-4.8) k/uL Monocytes # 0.7 (0-1.0) k/uL Eosinophils # 0.1 (0-0.7) k/uL Basophils # 0.1 (0-0.2) k/uL Anisocytosis Slight Sodium 136 L (137-145) mmol/L Potassium 4.6 (3.5-5.1) mmol/L Chloride 101 (98-107) mmol/L Carbon Dioxide 26 (22-30) mmol/L Anion Gap 9 mmol/L BUN 24 H (7-17) mg/dL Creatinine 1.15 H (0.52-1.04) mg/dL Est GFR (CKD-EPI)AfAm 54 (>60 ml/min/1.73 sqM) Est GFR (CKD-EPI)NonAf 47 (>60 ml/min/1.73 sqM) Glucose 109 H (74-99) mg/dL Calcium 9.7 (8.4-10.2) mg/dL Total Bilirubin 0.2 (0.2-1.3) mg/dL AST 20 (14-36) U/L ALT 12 (4-34) U/L Alkaline Phosphatase 75 (38-126) U/L Total Protein 6.4 (6.3-8.2) g/dL Albumin 3.5 (3.5-5.0) g/dL Urine Color Yellow Urine Appearance Cloudy H (Clear) Urine pH 5.0 (5.0-8.0) Ur Specific [place] 1.027 (1.001-1.035) Urine Protein Trace H (Negative) Urine Glucose (UA) Negative (Negative) Urine Ketones Negative (Negative) Urine Blood Negative (Negative) Urine Nitrite Negative (Negative) Urine Bilirubin Negative (Negative) Urine Urobilinogen 3.0 (<2.0) mg/dL Ur Leukocyte Esterase Large H (Negative) Urine RBC 8 H (0-5) /hpf Urine WBC 66 H (0-5) /hpf Ur Squamous Epith Cells 4 (0-4) /hpf Urine Bacteria Rare H (None) /hpf Hyaline Casts 30 H (0-2) /lpf Urine Mucus Many H (None) /hpf Disposition Clinical Impression: UTI (urinary tract infection) Disposition: HOME SELF-CARE Condition: Stable Instructions (If sedation given, give patient instructions): Urinary Tract Infection in Women (ED) Additional Instructions: Please return to the Emergency Department if symptoms worsen or any other concerns. Follow-up with primary care 1-2 days. Take antibiotics as prescribed until complete. Increase oral fluids. Prescriptions: Cephalexin [Keflex] 500 mg PO Q6HR #40 cap Is patient prescribed a controlled substance at d/c from ED?: No Referrals: Tommy Bui MD [Primary Care Provider] - 1-2 days Time of Disposition: 00:18
[2021-02-18] MEDS ORDERED: cefTRIAXone IN SWFI 1,000 MG/10 ML SYRINGE IVP STA (00:23)
[2021-02-18 00:50] VITALS: BP 103/74; PULSE 97; TEMP 98.5
== END 2021-02-18 00:51 | disposition home or self-care (01) ==
LOC: EC 22:44
DX: N39.0 Urinary tract infection, site not specified (principal); E78.5 Hyperlipidemia, unspecified; I10 Essential (primary) hypertension; Z86.73 Personal history of transient ischemic attack (TIA), and cerebral infarction without residual deficits
CPT/HCPCS: 36415; 80053; 81001; 85025; 87086; 96374; 99283

== ENCOUNTER 2021-07-02 13:48 | Emergency (ER) | payer MEDICARE ==
[2021-07-02 15:29] LABS: Albumin 3.7 g/dL (3.5-5.0); Calcium 9.7 mg/dL (8.4-10.2); Potassium 4.6 mmol/L (3.5-5.1); Total Bilirubin 0.4 mg/dL (0.2-1.3); Total Protein 6.8 g/dL (6.3-8.2)
[2021-07-02 15:37] LABS: Basophils % (A) 1 %; Eosinophils # (A) 0.4 k/uL (0-0.7); Eosinophils % (A) 8 %; HCT 35.4 % (34.0-46.0); HGB 11.1 gm/dL (11.4-16.0); Hypochromasia Slight; Lymphocytes # (A) 0.7 k/uL (1.0-4.8); Lymphocytes % (A) 16 %; MCH 29.6 pg (25.0-35.0); MCHC 31.3 g/dL (31.0-37.0); MCV 94.6 fL (80.0-100.0); Mean Platelet Volume 7.1; Monocytes # (A) 0.3 k/uL (0-1.0); Monocytes % (A) 7 %; Neutrophils # (A) 3.1 k/uL (1.3-7.7); Neutrophils % (A) 64 %; Platelet Count 297 k/uL (150-450); RBC 3.75 m/uL (3.80-5.40); RDW 15.5 % (11.5-15.5); WBC 4.8 k/uL (3.8-10.6)
[2021-07-02 15:41] LABS: INR 0.9 (<1.2); Partial Thromboplastin Time 24.6 sec (22.0-30.0); Prothrombin Time 9.8 sec (9.0-12.0)
--- NOTE | 2021-07-02 16:12 | XR ---
EXAMINATION TYPE: XR chest 2V DATE OF EXAM: 07/02/2021 COMPARISON: Chest x-ray 11/24/[address] 11/23/2017 HISTORY: Shortness of breath and cough, Covid positive TECHNIQUE: Frontal and lateral views of the chest are obtained. FINDINGS: Abnormal densities present at the right lung base with blunting the cost phrenic angle, si milar to prior exam. There is no evident pneumothorax. Cardiac mediastinal silhouette shows a similar appearance. Bones are stable. IMPRESSION: Findings of the right lung base appear chronic, difficult to exclude pneumonia
--- NOTE | 2021-07-02 16:31 | ED ---
General Adult HPI - General Chief complaint: Upper Respiratory Infection Stated complaint: Shortness of Breath, COVID+ Time Seen by Provider: 07/02/21 14:00 Source: patient Mode of arrival: wheelchair Limitations: no limitations - History of Present Illness Initial comments: 76-year-old female with past medical history of recurrent pneumonia, right lower lobe lobectomy presents emergency Department with shortness of breath. States that it is exertional in nature. She is also having some right-sided chest pain. She reports to recurrent pneumonia and states that her symptoms feel similar. She denies previous history of cardiac disease. No history of DVT or PE. No calf pain or swelling. No lower extremity edema. She denies any fevers. She did take a Covid test last Thursday and it was positive. She is fully vaccinated. No nausea, vomiting or diarrhea. No other alleviating, precipitating or modifying factors - Related Data Home Medications Medication Instructions Recorded Confirmed Aspirin EC [Ecotrin] 325 mg PO DAILY 09/12/16 07/02/21 Augmented Betamethasone Dip 0.05% 1 applic TOPICAL BID 09/12/16 07/02/21 Oint Bisoprolol [Zebeta] 5 mg PO HS 09/12/16 07/02/21 Budesonide-Formot 160-4.5 Mcg 2 puff INHALATION RT-BID 09/12/16 07/02/21 [Symbicort 160-4.5 Mcg Inhaler] Bumetanide [BUMEX] 1 mg PO DAILY 09/12/16 07/02/21 Latanoprost [Xalatan 0.005%] 1 drop BOTH EYES HS 09/12/16 07/02/21 Meloxicam [Mobic] 15 mg PO DAILY 09/12/16 07/02/21 Potassium Chloride ER [K-Dur 20] 20 meq PO DAILY 09/12/16 07/02/21 allopurinoL [Zyloprim] 300 mg PO DAILY 09/12/16 07/02/21 Losartan Potassium [Cozaar] 100 mg PO DAILY 11/23/17 07/02/21 Albuterol Inhaler [Ventolin Hfa 2 puff INHALATION RT-QID PRN 07/02/21 07/02/21 Inhaler] Anastrozole [Arimidex] 1 mg PO DAILY 07/02/21 07/02/21 Codeine Phosphate/Guaifenesin 10 ml PO QID PRN 07/02/21 07/02/21 [Guaiatussin AC Liquid] Erythromycin Ophth Oint [Romycin 1 applic LEFT EYE HS 07/02/21 07/02/21 Ophth Oint] Fexofenadine HCl [Michelle Allergy] 180 mg PO DAILY PRN 07/02/21 07/02/21 Fluticasone Nasal [place] [Flonase 1 spray EA NOSTRIL DAILY 07/02/21 07/02/21 Nasal [place]] Levothyroxine Sodium [Synthroid] 100 mcg PO DAILY 07/02/21 07/02/21 Mirabegron [Myrbetriq] 50 mg PO HS 07/02/21 07/02/21 Rosuvastatin [Crestor] 10 mg PO HS 07/02/21 07/02/21 Previous Rx's Medication Instructions Recorded Dexamethasone [Decadron] 6 mg PO DAILY #5 tablet 07/02/21 Levofloxacin [Levaquin] 750 mg PO DAILY #5 tab 07/02/21 Allergies Allergy/AdvReac Type Severity Reaction Status Date / Time clindamycin Allergy Rash/Hives Verified 07/02/21 16:48 Iodinated Contrast Media Allergy Rash/Hives/ Verified 07/02/21 16:48 [Iodinated Contrast Media - Itching Oral and] latex Allergy Rash/Hives/ Verified 07/02/21 16:48 Itching morphine Allergy Rash/Hives/ Verified 07/02/21 16:48 Itching shellfish derived [Shellfish] Allergy Rash/Hives/ Verified 07/02/21 16:48 Itching Review of Systems ROS Statement: Those systems with pertinent positive or pertinent negative responses have been documented in the HPI. ROS Other: All systems not noted in ROS Statement are negative. Past Medical History Past Medical History: Cancer, CVA/TIA, Hyperlipidemia, Hypertension, Thyroid Disorder Additional Past Medical History / Comment(s): breast History of Any Multi-Drug Resistant Organisms: None Reported Past Surgical History: Orthopedic Surgery Additional Past Surgical History / Comment(s): colectomy, R lower lung removed Past Anesthesia/Blood Transfusion Reactions: No Reported Reaction Past Psychological History: No Psychological Hx Reported Smoking Status: Former smoker Past Alcohol Use History: None Reported Past Drug Use History: None Reported - Past Family History Mother Family Medical History: Myocardial Infarction ([place]) Father Family Medical History: Diabetes Mellitus General Exam Limitations: no limitations Course Vital Signs 07/02/21 07/02/21 07/02/21 13:59 16:17 17:40 Temperature 98.7 F 97.8 F Pulse Rate 92 120 H 85 Respiratory 22 18 Rate Blood Pressure 122/72 148/67 O2 Sat by Pulse 96 97 96 Oximetry EKG Findings - EKG Comments: EKG Findings:: EKG demonstrates normal sinus rhythm with a ventricular rate of 78. NC interval 158. QRS 120. QTC of 440. No acute ST segment elevation or depressions concerning for ischemic changes. Q wave in lead 3. Medical Decision Making - Medical Decision Making Upon arrival the patient is placed into room 6. A thorough history and physical exam was performed. IV access established laboratory studies are conducted. Patient does go for a chest x-ray. Laboratory studies are reviewed. Troponin is negative. Chest x-ray does demonstrate findings at the right lung base which appear to be chronic. This includes blunting of the costophrenic angle. No evidence of pneumothorax. There is difficulty excluding a pneumonia. I did discuss the diagnosis, differential treatment options. Patient is ambulated and does have a pulse ox of 96. Her heart rate does go up to 120. I did discuss hospital admission with the patient however she refused and is requesting to attempt outpatient treatment. I gave the patient a dose of Decadron and Levaquin. Patient was placed on steroids and antibiotics for the next 5 days. She does have a pulse ox at home. Recommended to check her pulse ox and return for any oxygenation less than 90%. Patient is to addition return for any increased work of breathing. Patient understood this, was given written and verbal discharge instructions and discharged home in stable condition - Lab Data Result diagrams: 07/02/21 15:09 07/02/21 15:09 Lab Results 07/02/21 07/02/21 07/02/21 Range/Units 15:09 15:09 15:09 WBC 4.8 (3.8-10.6) k/uL RBC 3.75 L (3.80-5.40) m/uL Hgb 11.1 L (11.4-16.0) gm/dL Hct 35.4 (34.0-46.0) % MCV 94.6 (80.0-100.0) fL MCH 29.6 (25.0-35.0) pg MCHC 31.3 (31.0-37.0) g/dL RDW 15.5 (11.5-15.5) % Plt Count 297 (150-450) k/uL MPV 7.1 Neutrophils % 64 % Lymphocytes % 16 % Monocytes % 7 % Eosinophils % 8 % Basophils % 1 % Neutrophils # 3.1 (1.3-7.7) k/uL Lymphocytes # 0.7 L (1.0-4.8) k/uL Monocytes # 0.3 (0-1.0) k/uL Eosinophils # 0.4 (0-0.7) k/uL Basophils # 0.0 (0-0.2) k/uL Hypochromasia Slight PT 9.8 (9.0-12.0) sec INR 0.9 (<1.2) APTT 24.6 (22.0-30.0) sec Sodium 138 (137-145) mmol/L Potassium 4.6 (3.5-5.1) mmol/L Chloride 106 (98-107) mmol/L Carbon Dioxide 24 (22-30) mmol/L Anion Gap 8 mmol/L BUN 26 H (7-17) mg/dL Creatinine 0.90 (0.52-1.04) mg/dL Est GFR (CKD-EPI)AfAm 72 (>60 ml/min/1.73 sqM) Est GFR (CKD-EPI)NonAf 63 (>60 ml/min/1.73 sqM) Glucose 84 (74-99) mg/dL Calcium 9.7 (8.4-10.2) mg/dL Total Bilirubin 0.4 (0.2-1.3) mg/dL AST 26 (14-36) U/L ALT 16 (4-34) U/L Alkaline Phosphatase 80 (38-126) U/L Troponin I (0.000-0.034) ng/mL Total Protein 6.8 (6.3-8.2) g/dL Albumin 3.7 (3.5-5.0) g/dL 07/02/21 Range/Units 15:09 WBC (3.8-10.6) k/uL RBC (3.80-5.40) m/uL Hgb (11.4-16.0) gm/dL Hct (34.0-46.0) % MCV (80.0-100.0) fL MCH (25.0-35.0) pg MCHC (31.0-37.0) g/dL RDW (11.5-15.5) % Plt Count (150-450) k/uL MPV Neutrophils % % Lymphocytes % % Monocytes % % Eosinophils % % Basophils % % Neutrophils # (1.3-7.7) k/uL Lymphocytes # (1.0-4.8) k/uL Monocytes # (0-1.0) k/uL Eosinophils # (0-0.7) k/uL Basophils # (0-0.2) k/uL Hypochromasia PT (9.0-12.0) sec INR (<1.2) APTT (22.0-30.0) sec Sodium (137-145) mmol/L Potassium (3.5-5.1) mmol/L Chloride (98-107) mmol/L Carbon Dioxide (22-30) mmol/L Anion Gap mmol/L BUN (7-17) mg/dL Creatinine (0.52-1.04) mg/dL Est GFR (CKD-EPI)AfAm (>60 ml/min/1.73 sqM) Est GFR (CKD-EPI)NonAf (>60 ml/min/1.73 sqM) Glucose (74-99) mg/dL Calcium (8.4-10.2) mg/dL Total Bilirubin (0.2-1.3) mg/dL AST (14-36) U/L ALT (4-34) U/L Alkaline Phosphatase (38-126) U/L Troponin I <0.012 (0.000-0.034) ng/mL Total Protein (6.3-8.2) g/dL Albumin (3.5-5.0) g/dL Disposition Clinical Impression: COVID-19 virus infection, Pneumonia Disposition: HOME SELF-CARE Condition: Stable Instructions (If sedation given, give patient instructions): Coronavirus Disease 2019 (COVID-19), Pneumonia (ED) Additional Instructions: Please follow-up with your primary care doctor within 2-4 days. Use your inhaler every 4 hours. Take the antibiotics and steroids as directed starting tomorrow. Return to the emergency room for any new or worsening symptoms Prescriptions: Dexamethasone [Decadron] 6 mg PO DAILY #5 tablet Levofloxacin [Levaquin] 750 mg PO DAILY #5 tab Is patient prescribed a controlled substance at d/c from ED?: No Referrals: Tommy Bui MD [Primary Care Provider] - 1-2 days Time of Disposition: 17:16
[2021-07-02] MEDS ORDERED: dexAMETHasone 2 MG TAB PO STA (17:10)
[2021-07-02] MEDS ORDERED: LEVOFLOXACIN 750 MG TAB PO STA (17:12)
[2021-07-02 17:41] VITALS: BP 148/67; PULSE 85; RESP 18; TEMP 97.8
== END 2021-07-02 17:40 | disposition home or self-care (01) ==
LOC: EC 13:48
DX: U07.1 COVID-19 (principal); J12.82 Pneumonia due to coronavirus disease 2019; E78.5 Hyperlipidemia, unspecified; I10 Essential (primary) hypertension; E07.9 Disorder of thyroid, unspecified; Z79.82 Long term (current) use of aspirin; Z88.1 Allergy status to other antibiotic agents; Z91.040 Latex allergy status; Z88.5 Allergy status to narcotic agent; Z86.73 Personal history of transient ischemic attack (TIA), and cerebral infarction without residual deficits; Z87.891 Personal history of nicotine dependence; Z85.3 Personal history of malignant neoplasm of breast
CPT/HCPCS: 36415; 71046; 80053; 84484; 85025; 85610; 85730; 93005; 99285

== ENCOUNTER 2021-11-30 12:37 | Day surgery (SDC) | payer MEDICARE ==
[2021-12-17 12:23] VITALS: BMI 51.7
[2021-12-18] MEDS ORDERED: SODIUM CHLORIDE 0.9% 1,000 ML in EMPTY BAG 1 BAG IV ONE (06:03)
[2021-12-18] MEDS ORDERED: NITROGLYCERIN SL TABS 0.4 MG TAB SUBLINGUAL PRN (06:03)
[2021-12-18] MEDS ORDERED: ALPRAZolam 0.25 MG TAB PO PRN (06:03)
[2021-12-18] MEDS ORDERED: ALPRAZolam 0.5 MG TAB PO PRN (06:03)
[2021-12-18] MEDS ORDERED: ASPIRIN 325 MG TAB PO ONE (07:00)
[2021-12-18] MEDS ORDERED: SODIUM CHLORIDE 0.9% 1,000 ML IV ONE (09:02)
[2021-12-18 09:26] LABS: Basophils % (A) 0 %; Eosinophils % (A) 0 %; HCT 35.6 % (34.0-46.0); HGB 10.9 gm/dL (11.4-16.0); Hypochromasia Slight; Lymphocytes # (A) 0.9 k/uL (1.0-4.8); Lymphocytes % (A) 7 %; MCH 28.3 pg (25.0-35.0); MCHC 30.6 g/dL (31.0-37.0); MCV 92.6 fL (80.0-100.0); Mean Platelet Volume 7.5; Monocytes # (A) 0.3 k/uL (0-1.0); Monocytes % (A) 3 %; Neutrophils # (A) 10.7 k/uL (1.3-7.7); Neutrophils % (A) 89 %; Platelet Count 396 k/uL (150-450); RBC 3.85 m/uL (3.80-5.40); RDW 15.1 % (11.5-15.5)
[2021-12-18 09:38] LABS: Calcium 9.8 mg/dL (8.4-10.2); Potassium 4.6 mmol/L (3.5-5.1)
[2021-12-18] MEDS ORDERED: VERAPAMIL 2.5 MG/ML 2 ML AMP ONE (10:25)
[2021-12-18] MEDS ORDERED: HEPARIN SODIUM 1,000 UN/ML (10ML VL) ONE (10:25)
[2021-12-18] MEDS ORDERED: ceFAZolin 3 GM in SODIUM CHLORIDE 0.9% 100 ML IVPB ONE (10:30)
[2021-12-18] MEDS ORDERED: LIDOCAINE 1% INJ 10MG/ML (30 ML VIAL-PF) SQ ONE (10:56)
[2021-12-18] MEDS: LIDOCAINE 1% INJ 10MG/ML (30 ML VIAL-PF) SQ ONE ×3 (11:02→11:46)
[2021-12-18] MEDS: MIDAZOLAM 2 MG/2 ML VIAL IV ONE ×2 (11:02→11:40)
[2021-12-18] MEDS ORDERED: HEPARIN SODIUM 1,000 UN/ML (10ML VL) IV ONE (11:23)
[2021-12-18] MEDS ORDERED: fentaNYL (PF) 50 MCG/ML 2 ML AMP ONE ×2 (11:56→14:02)
[2021-12-18] MEDS ORDERED: IOPAMIDOL-370 125ML BTL INJ ONE ×2 (12:04)
[2021-12-18] MEDS ORDERED: IOPAMIDOL-250 100ML BTL INTRAARTER ONE ×2 (12:08)
[2021-12-18] MEDS ORDERED: fentaNYL (PF) 50 MCG/ML 2 ML AMP IV ONE (12:08)
[2021-12-18] MEDS ORDERED: RX INFO: IV CONTRAST WAS GIVEN 1 EACH MISC MISCELLANE PRN (12:29)
[2021-12-18] MEDS ORDERED: SODIUM CHLORIDE 0.9% 1,000 ML IV SCH (12:30)
--- NOTE | 2021-12-18 12:37 | P.PCN ---
Date of Procedure: 12/18/21 Operative Findings: CARDIAC CATHETERIZATION PERFORMING PHYSICIAN: Sushil Petty MD, RPVI PROCEDURE PERFORMED: 1. Selective right and left coronary angiogram 2. Left heart catheterization 3. Right heart catheterization 4. Right common femoral artery angiogram 5. Ultrasound-guided access of the right common femoral artery and left common femoral INDICATION: This is a 76-year-old female patient was experiencing shortness of breath. She was found to have severe aortic stenosis by transthoracic echocardiogram. She was going to be evaluated for transcutaneous aortic valve replacement and a heart catheterization is to assess aortic valve and also to rule out severe CAD COMPLICATION: None APPROACH: Right common femoral artery LEVEL OF SEDATION: Moderate with sedation in length of 20 minutes PROCEDURE DESCRIPTION: After obtaining an informed consent, the patient was brought to cardiac laboratory assistant. Local anesthesia was performed using lidocaine subcutaneously. The right common femoral artery was cannulated using micropuncture technique under ultrasound guidance, the micropuncture wire passed easily then I placed a 6-Swiss sheath. Subsequently the left common femoral vein was cannulated using micropuncture technique under ultrasound guidance, the micropuncture wire passed easily then I place an 8-Swiss sheath in the left common femoral vein Right heart catheterization was performed using 6-Swiss [place] catheter which was advanced into wedge position then we did multiple back into the pulmonary artery were I did thermodilution cardiac output and then a pullback into the RV then RA before the wedge catheter was withdrawn out. I did across aortic valve using an AL-1 catheter with a straight wire then I did pullback across the valve to check the gradient Selective right and left coronary angiogram using a 6-Swiss JR4 and JL catheters. The procedure was completed there was no complication. SELECTIVE CORONARY ANGIOGRAM: The right coronary artery: Is a large caliber vessel and a dominant vessel. The RCA appears to have mild disease only. Distally bifurcates into PDA and PLV branches both appeared to have mild disease only. Left main: Short but angiographically normal. Bifurcates into a LCx and LAD The left circumflex: Is a large caliber vessel nondominant vessel. The LCx is angiographically normal. Gives rises into the first and second obtuse marginal branches both appeared to be angiographically The left anterior descending artery: Is a large caliber vessel. Its angiographically normal. Gives rise into a large diagonal branch which seems to be angiographically normal. HEMODYNAMICS: #1 the pulmonary capillary wedge pressure was 20 mmHg #2 PA pressures were as follow systolic 38 and diastolic of 10 and mean of 21 mmHg #3 RV pressures were as follow systolic of 45 and end-diastolic of 13 mmHg #4 RA pressure was 6 mmHg #5 the LVEDP was 13 mmHg #6 cardiac output was 7.00 L/m with a cardiac index of 3.33 L/m/m #7 the aortic valve mean gradient was 25.3 mmHg #8 aortic valve area was 1.5 cm CONCLUSION: 1. Normal coronary angiogram 2. Elevated right-sided filling pressure 3. Moderate aortic stenosis gradient as well as by area POSTPROCEDURE MANAGEMENT: Medical treatment and follow-up with the patient
--- NOTE | 2021-12-18 12:44 | P.PCN ---
Date of Procedure: 12/18/21 Operative Findings: AN AORTIC ARCH AND CAROTID ARTERY ANGIOGAM PERFORMING PHYSICIAN Sushil Petty M.D. 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 She was brought today for further evaluation. ACCESS Right common femoral artery COMPLICATION None LEVEL OF SEDATION Moderate to sedation with severe elevation in length of 40 minutes Procedure description After obtaining an informed consent the patient was brought to the cardiac skill labor. The right common femoral artery was cannulated using puncture technique under ultrasound guidance, the micropuncture wire passed easily then replace 70 cm 6- Hebrew shuttle sheath in the right common femoral artery over an 035 stiff Glidewire. Subsequently I did aortic arch angiogram using 5-Hebrew pigtail catheter. The arch was type I aortic arch After the aortic arch angiogram was performed I did selective left common carotid artery using JB2 catheter. I did advance to the Glidewire. Then I did advance a catheter over the wire to the mid left common carotid. Then I advanced the sheath over the wire and the catheter and subsequently the wire and the catheter were pulled out. Selective left common carotid and left internal carotid angiogram was performed on multiple views including an AP and MATA and KISWAHILI and left lateral. The procedure was completed without any complication SELECTIVE CAROTID ANGIOGRAM The aortic arch appears to be type I arch and seems to be angiographically normal. The left common carotid artery is angiographically normal. The left external carotid artery is subtotally occluded. The left internal carotid artery has a calcified eccentric plaque appears to be only in the range of 60%. No high- grade stenosis was identified. Because of that and because the lesion was not flow-limiting and critical with d ecided to stop. CONCLUSION #1 type I aortic arch #2 intermediate lesion involving the left internal carotid artery by the bifurcation of the left external iliac artery which is subtotally occluded POSTPROCEDURE MANAGEMENT #1 medical treatment #2 follow-up with the patient
[2021-12-18] MEDS ORDERED: ONDANSETRON 4 MG/2 ML VIAL ONE (13:25)
[2021-12-18] MEDS ORDERED: ATROPINE SULFATE 0.1 MG/ML 10ML SYRINGE IVP ONE (13:35)
[2021-12-18] MEDS: BENZOCAINE SPRAY 1 CAN MUCOUS MEM ONE ×2 (14:07→14:13)
[2021-12-18] MEDS ORDERED: IV FLUID CONTINUATION 1,000 ML IV ONE (14:21)
[2021-12-18] MEDS ORDERED: LORATADINE 10 MG TAB PO PRN (14:29)
[2021-12-18] MEDS ORDERED: guaiFENesin-Coden 100-10MG/5ML 10 ML CUP PO PRN (14:29)
--- NOTE | 2021-12-18 14:35 | IR ---
EXAMINATION TYPE: IR angio carotid cerv BILAT DATE OF EXAM: 12/18/2021 COMPARISON: NONE HISTORY: Fluoroscopy time. Fluoroscopy was provided to the referring clinician.
[2021-12-18] MEDS ORDERED: Acetaminophen-Codeine 300-30mg TAB PO STA (19:24)
[2021-12-18] MEDS ORDERED: BISOPROLOL 5 MG TAB PO SCH (21:00)
[2021-12-18] MEDS: ATORVASTATIN 20 MG TAB PO SCH (21:25)
[2021-12-18] MEDS: LATANOPROST 0.005% OPHTH DROPS 2.5 ML BTL BOTH EYES SCH (22:39)
[2021-12-18] MEDS: PATIENT'S OWN (Mirabegron [Myrbetriq] 50 MG Tablet) PO SCH (22:41)
[2021-12-19] MEDS: LEVOTHYROXINE 100 MCG TAB PO SCH (06:51)
[2021-12-19] MEDS: MELOXICAM 7.5 MG TAB PO SCH (08:22)
[2021-12-19] MEDS: ASPIRIN 325 MG TAB PO SCH (08:23)
[2021-12-19] MEDS: dexAMETHasone 2 MG TAB PO SCH ×2 (08:23→08:31)
[2021-12-19] MEDS: allopurinoL 300 MG TAB PO SCH (08:23)
[2021-12-19] MEDS: ANASTROZOLE 1 MG TAB PO SCH (08:23)
[2021-12-19] MEDS: BUMETANIDE 1 MG TAB PO SCH (08:23)
[2021-12-19] MEDS: POTASSIUM CHLORIDE ER 20 MEQ TAB.ER PO SCH (08:23)
[2021-12-19] MEDS: FLUTICASONE 50MCG/SPRAY NASAL 16GM EA NOSTRIL SCH (08:24)
[2021-12-19] MEDS: SYMBICORT 80-4.5 MCG INHALER INHALATION SCH ×2 (08:34→20:09)
[2021-12-19] MEDS: IPRATROPIUM 0.5 MG/2.5 ML NEBU INHALATION SCH ×4 (08:34→20:09)
[2021-12-19] MEDS ORDERED: LOSARTAN 50 MG TAB PO SCH (09:00)
[2021-12-19] MEDS ORDERED: NON FORMULARY DRUG (Fluticasone/Umeclidin/Vilanter [Trelegy Ellipta 100-62.5-25] 1 EACH Bl INHALATION SCH (09:00)
--- NOTE | 2021-12-19 13:47 | P.PN ---
Subjective Progress Note Date: 12/19/21 HISTORY OF PRESENT ILLNESS: This is a 76-year-old female who was found to have severe aortic stenosis by transthoracic echocardiogram. She underwent right and left cardiac catheteriz ation yesterday with Dr. Petty revealing normal coronary arteries, elevated right-sided filling pressures, and moderate aortic stenosis with gradient 25.3mmgHg and area 1.5cm. She also underwent aortic arch angiogram and left common and left carotid angiogram revealing type I aortic arch and intermediate lesion involving the left internal carotid artery by the bifurcation of the left external iliac artery which is subtotally occluded. Patient was examined this morning by Dr. Petty. She denies chest pain or pressure. No SOB. Blood pressures have been on the low side. PHYSICAL EXAM: VITAL SIGNS: Reviewed. GENERAL: Well-developed in no acute distress. NECK: Supple. No JVD or thyromegaly LUNGS: Respirations even and unlabored. Lungs essentially clear to auscultation bilaterally. HEART: Regular rate and rhythm. S1 and S2 heard. Systolic murmur. EXTREMITIES: Normal range of motion. No clubbing or cyanosis. Peripheral pulses intact. No lower extremity edema ASSESSMENT: Moderate aortic stenosis Elevated right sided filling pressures Normal coronary arteries Type I aortic arch Intermediate lesion involving the left internal carotid artery by the bifurcation of the left external iliac artery which is subtotally occluded Post procedure hypotension PLAN: Discontinue Cozaar Discontinue Bisoprolol Hold discharge today secondary to hypotension Continue to monitor blood pressure Patient will be re-evaluated tomorrow by Dr. Petty Nurse practitioner note has been reviewed by physician. Signing provider agrees with the documented findings, assessment, and plan of care. Objective - Vital Signs Vital signs: Vital Signs Temp 97.4 F L 12/19/21 08:00 Pulse 72 12/19/21 12:04 Resp 18 12/19/21 08:00 BP 114/43 12/19/21 08:00 Pulse Ox 93 L 12/19/21 08:00 FiO2 Intake & Output 12/18/21 12/19/21 12/19/21 18:59 06:59 18:59 Intake Total 1250 Balance 1250 Weight 120.4 kg Intake: IV 1250 Other: Voiding Method Toilet # Voids 1 - Labs CBC & Chem 7: 12/18/21 09:15 12/18/21 09:15
[2021-12-19 14:03] LABS: Basophils % (A) 1 %; Eosinophils # (A) 0.1 k/uL (0-0.7); Eosinophils % (A) 2 %; HCT 24.7 % (34.0-46.0); Hypochromasia Marked; Lymphocytes % (A) 14 %; MCH 28.8 pg (25.0-35.0); MCHC 30.6 g/dL (31.0-37.0); MCV 94.2 fL (80.0-100.0); Mean Platelet Volume 7.4; Monocytes # (A) 0.4 k/uL (0-1.0); Monocytes % (A) 6 %; Neutrophils # (A) 5.4 k/uL (1.3-7.7); Neutrophils % (A) 77 %; Platelet Count 303 k/uL (150-450); RBC 2.62 m/uL (3.80-5.40); RDW 15.5 % (11.5-15.5); WBC 6.9 k/uL (3.8-10.6)
[2021-12-19 14:24] LABS: Calcium 8.5 mg/dL (8.4-10.2); Potassium 4.5 mmol/L (3.5-5.1)
[2021-12-19 14:30] LABS: HGB 7.6 gm/dL (11.4-16.0)
--- NOTE | 2021-12-19 14:45 | CDI ---
Documentation Clarification Form Date: 12/19/2021 02:12:35 PM From: Vannessa Farah RN, CCDS Admit Date: 12/18/2021 08:35:00 AM Patient Name: Kylie Carrington Visit Number: [id number] Discharge Date: ATTENTION: The Clinical Documentation Specialists (CDI) and [facility] Coding Staff appreciate your assistance in clarifying documentation. Please respond to the clarification below the line at the bottom and electronically sign. The CDI & [facility] Coding staff will review the response and follow-up if needed. Please note: Queries are made part of the Legal Health Record. If you have any questions, please contact the author of this message via ITS. Dr. Sushil Petty Post procedure hypotension is documented in the progress note on 12/19/21 and patient had. Additional clarification is requested regarding the relationship, if any, that exists between the diagnosis and the procedure. Patients Admitting Diagnosis: Severe aortic stenosis Post-Operative Diagnosis: Moderate aortic stenosis Procedure performed: Left and right heart catheterization, right common femoral artery angiogram, an aortic arch angiogram, selective left common and left carotid angiogram History/Risk Factors: Aortic Stenosis, Hypertension Clinical Indicators: 76-year-old female who was found to have severe aortic stenosis by transthoracic echocardiogram. On 12/18/21 she had a right and left cardiac catheterization and aortic arch angiogram and left common and left carotid angiogram. Progress notes on 12/19 indicate blood pressures have been on the low side and post procedure hypotension was documented. 12/18 @13:38 74/41 42 16, 12/19 @ 00:18 77/47/72 18, @ 4:26 94/42 69 ; 08:00 114/43 76 18 97.4 Treatment: Cardiac/Telemetry monitoring Monitor blood pressure per orders .9 NS 300 MLS 12/18 .9 NS @ 75ML HR 12/18 (12:31-18:31) Discontinue Cozaar, Bisoprolol. What relationship, if any, exists between the diagnosis of post procedure hypotension and the procedure: [ ] Post procedure hypotension is a complication of surgical procedure [ ] Post procedure hypotension is an expected outcome of the surgical procedure [ ] Post procedure hypotension is related to patients co-morbid condition(s) of (specify dxs] & not a complication of the procedure [ ] Other please specify ____ [ ] Unable to determine (Template Last Revised: July 2020) MTDD
--- NOTE | 2021-12-19 20:45 | CT ---
EXAMINATION TYPE: CT ChestAbdPelvis wo con DATE OF EXAM: 12/19/2021 COMPARISON: 11/24/2017 HISTORY: R/O bleeding CT DLP: 2208.8 mGycm. Automated Exposure Control for Dose Reduction was Utilized. TECHNIQUE: CT scan of the thorax, abdomen and pelvis is performed without IV contrast. FINDINGS: CHEST: LUNGS: There is atelectasis of the right lower lobe. Remainder of the lungs are bilaterally clear wel l-expanded. MEDIASTINUM: There are no greater than 1 cm hilar or mediastinal lymph nodes. No pericardial effusi on is seen. Coronary calcifications, and mitral/aortic valve plane calcifications. OTHER: No additional significant abnormality is seen. ABDOMEN AND PELVIS: LIVER/GB: No significant abnormality is appreciated. PANCREAS: No significant abnormality is seen. SPLEEN: No significant abnormality is seen. ADRENALS: No significant abnormality is seen. KIDNEYS: No significant abnormality is seen. BOWEL: No significant abnormality is seen. PERITONEAL CAVITY: No peritoneal fluid or pneumoperitoneum. LYMPH NODES: No greater than 1cm abdominal or pelvic lymph nodes are appreciated. OTHER: No evidence of hemorrhage. OSSEOUS STRUCTURES: No fracture or malalignment or evidence of hematoma. IMPRESSION: CHEST: No definite acute CT process. Right lower lobe complete atelectasis, appearing chronic. Pinto ry calcifications, and mitral/aortic valve plane calcifications. ABDOMEN AND PELVIS: No acute CT process.
[2021-12-19] MEDS: PATIENT'S OWN (Mirabegron [Myrbetriq] 50 MG Tablet) PO SCH (21:32)
[2021-12-19] MEDS: LATANOPROST 0.005% OPHTH DROPS 2.5 ML BTL BOTH EYES SCH (21:37)
[2021-12-19] MEDS: ATORVASTATIN 20 MG TAB PO SCH (21:37)
[2021-12-20] MEDS ORDERED: ACETAMINOPHEN TAB 325 MG TAB PO PRN (04:13)
[2021-12-20] MEDS: LEVOTHYROXINE 100 MCG TAB PO SCH (06:24)
--- NOTE | 2021-12-20 07:43 | CA ---
Transthoracic Echo Report Name: Kylie Carrington Age: 76 Gender: F : 1945 Exam Date: 12/19/2021 14:07 Exam Location: [facility] Ht (in): 60 Wt (lb): 265 Ordering Physician: Sushil Petty MD ([id number]) Attending/Referring Phys: Clinical Case Manager Reshma Johnson RDCS Procedure CPT: Indications: LV function Cardiac Hx: Technical Quality: Technically difficult study Contrast 1: Total Dose (mL): Contrast 2: Lumason Total Dose (mL): 3 MEASUREMENTS (Male / Female) Normal Values 2D ECHO LV Diastolic Diameter PLAX 4.3 cm 4.2 - 5.9 / 3.9 - 5.3 cm LV Systolic Diameter PLAX 2.9 cm IVS Diastolic Thickness 1.3 cm 0.6 - 1.0 / 0.6 - 0.9 cm LVPW Diastolic Thickness 1.7 cm 0.6 - 1.0 / 0.6 - 0.9 cm LV Relative Wall Thickness 0.7 RV Internal Dim ED PLAX 3.2 cm LA Systolic Diameter LX 4.5 cm 3.0 - 4.0 / 2.7 - 3.8 cm M-MODE Aortic Root Diameter MM 3.6 cm LA Systolic Diameter MM 4.6 cm LA Ao Ratio MM 1.3 MV E Point Septal Separation 0.3 cm AV Cusp Separation MM 0.8 cm DOPPLER AV Peak Velocity 507.4 cm/s AV Peak Gradient 103.0 mmHg AV Mean Velocity 379.0 cm/s AV Mean Gradient 61.9 mmHg AV Velocity Time Integral 99.7 cm LVOT Peak Velocity 143.1 cm/s LVOT Peak Gradient 8.2 mmHg FINDINGS Left Ventricle Left ventricular ejection fraction is estimated at 60%. Mildly increased left ventricular wall thickness. Right Ventricle Normal right ventricular size and function. Normal right ventricular size and function. Right Atrium Normal right atrial size. Left Atrium Moderately increased left atrial diameter. Mitral Valve Structurally normal mitral valve. Mild mitral regurgitation. Aortic Valve Aortic valve not well visualized. Severe aortic stenosis, peak gradient 103 mmHg, mean gradient 61.9 mmHg,. Tricuspid Valve Structurally normal tricuspid valve. Pulmonic Valve Pulmonic valve not well visualized. Pericardium Normal pericardium. Aorta Normal size aortic root and proximal ascending aorta. CONCLUSIONS Mild LVH Normal left ventricular ejection fraction 60% Mild mitral regurgitation Severe aortic stenosis, Vmax 5.4 m/s, mean gradient 61.9 mmHg No pericardial effusion Previewed by: Dr. Massimo Beal DO (Electronically Signed) Final Date: 20 December 2021 07:42
--- NOTE | 2021-12-20 08:15 | P.PN ---
Progress Note - Text Progress Note Date: 12/20/21 The patient is a pleasant 76-year-old female patient was diagnosed recently with severe symptomatic aortic stenosis. She also was diagnosed recently with severe atherosclerotic disease involving the left internal carotid artery. She was brought to the hospital recently where she underwent a heart catheterization which revealed mild nonobstructive coronary artery disease. Also she underwent right heart catheterization. Right heart catheterization showed evidence of moderate aortic stenosis by gradient as well as by an area. She underwent an aortic arch carotid angiogram. The computed tomography scan previously showed severe disease involving the left internal carotid artery. When she did undergo selective left carotid angiogram that showed only intermediate lesion involving the left internal carotid artery was subtotally occluded left external carotid artery. She was seen yesterday for discharge. She was found to have marginally low blood pressure. Beside that she was found to have low hemoglobin. In the light of that I kept the patient overnight. She underwent investigation including computed tomography scan to rule out any bleeding and the computed tomography scan revealed small hematoma involving the left thigh where the venous sheath was placed. The hematoma is about 4.5 cm in diameter. She also underwent an echocardiogram to rule out any pericardial effusion and the echo showed no evidence of pericardial effusion. I came in to discharge the patient this morning but she was having mild temperature. She was given Tylenol. Also I don't have the results of the blood work at this point. Hemodynamically she is a stable was marginally low pressure but above 90 mmHg systolic. She is asymptomatic completely from the cardiovascular standpoint of view. Beside that she is asymptomatic in terms of cough or sputum production. Both groins are soft an nontender with mild bruises over the left groin where the computed tomography scan picked up the small hematoma. She is not on any blood pressure medications. She ate her breakfast and currently she is sitting in bed watching TV. On examination she continues to have the crescendo decrescendo murmur at the right upper sternal border but she has clear breathing sounds bilaterally. At this point I'm going to consult and ID to see the patient. The computed tomography scan also picked up possible underlying pneumonia. We are also waiting for the result of the CBC. If the infectious disease service clear the patient for discharge the patient is going to be discharged assuming that her hemoglobin will be stable as well. We'll follow-up with both.
[2021-12-20] MEDS: SYMBICORT 80-4.5 MCG INHALER INHALATION SCH ×2 (08:23→20:11)
[2021-12-20] MEDS: IPRATROPIUM 0.5 MG/2.5 ML NEBU INHALATION SCH ×4 (08:23→20:11)
--- NOTE | 2021-12-20 08:26 | XR ---
EXAMINATION TYPE: XR chest 2V DATE OF EXAM: 12/20/2021 COMPARISON: Chest x-ray 07/02/[address] 12/19/2021 HISTORY: Fever, abnormal chest x-ray TECHNIQUE: Frontal and lateral views of the chest are obtained. FINDINGS: Patient is rotated. There are overlying leads. There is some improvement in aeration at th e right lung base, persistent blunting the right costophrenic angle and patchy density again noted. N o evident pneumothorax. Cardiac mediastinal silhouette is stable. Aorta is dense. IMPRESSION: There is some improvement in aeration, persistent possible atelectasis versus pneumonia and associated effusion, there are some chronic changes with pleural calcification and possible chron ic pleural reaction
[2021-12-20] MEDS: FLUTICASONE 50MCG/SPRAY NASAL 16GM EA NOSTRIL SCH (08:37)
[2021-12-20] MEDS: dexAMETHasone 2 MG TAB PO SCH (08:37)
[2021-12-20] MEDS: ANASTROZOLE 1 MG TAB PO SCH (08:37)
[2021-12-20] MEDS: MELOXICAM 7.5 MG TAB PO SCH (08:38)
[2021-12-20] MEDS: BUMETANIDE 1 MG TAB PO SCH (08:38)
[2021-12-20] MEDS: POTASSIUM CHLORIDE ER 20 MEQ TAB.ER PO SCH (08:38)
[2021-12-20] MEDS: allopurinoL 300 MG TAB PO SCH (08:38)
[2021-12-20] MEDS: ASPIRIN 325 MG TAB PO SCH (08:38)
[2021-12-20 08:40] LABS: Basophils # (A) 0.1 k/uL (0-0.2); Basophils % (A) 1 %; Eosinophils # (A) 0.1 k/uL (0-0.7); Eosinophils % (A) 2 %; HCT 24.5 % (34.0-46.0); HGB 7.5 gm/dL (11.4-16.0); Hypochromasia Moderate; Lymphocytes # (A) 0.9 k/uL (1.0-4.8); Lymphocytes % (A) 14 %; MCH 28.8 pg (25.0-35.0); MCHC 30.7 g/dL (31.0-37.0); MCV 93.6 fL (80.0-100.0); Mean Platelet Volume 7.6; Monocytes # (A) 0.6 k/uL (0-1.0); Monocytes % (A) 9 %; Neutrophils % (A) 74 %; Platelet Count 291 k/uL (150-450); RBC 2.62 m/uL (3.80-5.40); RDW 15.5 % (11.5-15.5); WBC 6.8 k/uL (3.8-10.6)
[2021-12-20 12:34] LABS: Basophils # (A) 0.1 k/uL (0-0.2); Basophils % (A) 1 %; Eosinophils # (A) 0.2 k/uL (0-0.7); Eosinophils % (A) 2 %; HCT 25.8 % (34.0-46.0); HGB 8.2 gm/dL (11.4-16.0); Hypochromasia Moderate; Lymphocytes % (A) 15 %; MCH 29.7 pg (25.0-35.0); MCHC 31.7 g/dL (31.0-37.0); MCV 93.6 fL (80.0-100.0); Mean Platelet Volume 7.3; Monocytes # (A) 0.6 k/uL (0-1.0); Monocytes % (A) 8 %; Neutrophils # (A) 5.1 k/uL (1.3-7.7); Neutrophils % (A) 72 %; Platelet Count 289 k/uL (150-450); RBC 2.76 m/uL (3.80-5.40); RDW 15.9 % (11.5-15.5)
[2021-12-20 12:52] LABS: Albumin 3.3 g/dL (3.5-5.0); C Reactive Protein 2.4 mg/dL (<1.0); Potassium 4.5 mmol/L (3.5-5.1); Total Bilirubin 0.2 mg/dL (0.2-1.3); Total Protein 5.8 g/dL (6.3-8.2)
[2021-12-20] MEDS: PATIENT'S OWN (Mirabegron [Myrbetriq] 50 MG Tablet) PO SCH (19:57)
[2021-12-20] MEDS: ATORVASTATIN 20 MG TAB PO SCH (19:59)
[2021-12-20] MEDS: LATANOPROST 0.005% OPHTH DROPS 2.5 ML BTL BOTH EYES SCH (22:18)
--- NOTE | 2021-12-20 23:16 | P.CONS ---
History of Present Illness - Reason for Consult Consult date: 12/20/21 Fever Requesting physician: Sushil Petty - Chief Complaint Fever 1 day - History of Present Illness Patient is a 76-year-old female was noticed to have severe aortic stenosis by transthoracic echocardiogram patient was subsequently admitted [facility] for left heart catheterization and underwent aortic arch angiogram patient on presentation to the hospital was afebrile however the patient did spike a fever of 101 degrees for right around 4 AM this morning the patient discharge was put on hold and infectious disease was consulted for further management patient currently denies having any fever rigors or chills, patient denies any headache no chest pain or shortness with occasional cough no abdominal pain no diarrhea patient has developed some bruising to the left thigh area however denies significant pain to the left thigh currently with no open wound or any drainage no diarrhea and no urinary symptoms patient work-up so far including slight drop in hemoglobin from 10.9-7.5 patient did have a normal white count BUN/creatinine is mildly elevated there was abnormal COVID testing is negative patient did have a CT of the chest abdominal pelvis did shows left anterior thigh with likely hemorrhage [id number] 1 cm concerning for hematoma she was noticed to have atelectasis right lower lobe and no other acute abnormality in the chest of the abdomen Review of Systems Positive point has been mentioned in the HPI rest of the systems are negative Past Medical History Past Medical History: Cancer, CVA/TIA, Eye Disorder, Hyperlipidemia, Hypertension, Thyroid Disorder Additional Past Medical History / Comment(s): LT breast CA, GLAUCOMA, DVT RT LEG YEARS AGO History of Any Multi-Drug Resistant Organisms: None Reported Past Surgical History: Bowel Resection, Orthopedic Surgery Additional Past Surgical History / Comment(s): colectomy, R lower lung removed, LT BREAST LUMPECTOMY, COLONOSCOPY, BILAT CATARACTS REMOVED WITH LENS IMPLANTS, Past Anesthesia/Blood Transfusion Reactions: Motion Sickness Smoking Status: Former smoker - Past Family History Mother Family Medical History: Cancer, Myocardial Infarction (NM) Father Family Medical History: Diabetes Mellitus Sister(s) Family Medical History: Cancer Medications and Allergies Home Medications Medication Instructions Recorded Confirmed Type Aspirin EC [Ecotrin] 325 mg PO DAILY 09/12/16 12/18/21 History Bisoprolol [Zebeta] 5 mg PO HS 09/12/16 12/18/21 History Bumetanide [BUMEX] 1 mg PO DAILY 09/12/16 12/18/21 History Latanoprost [Xalatan 0.005%] 1 drop BOTH EYES HS 09/12/16 12/18/21 History Meloxicam [Mobic] 15 mg PO DAILY 09/12/16 12/18/21 History Potassium Chloride ER [K-Dur 20] 20 meq PO DAILY 09/12/16 12/18/21 History allopurinoL [Zyloprim] 300 mg PO DAILY 09/12/16 12/18/21 History Albuterol Inhaler [Ventolin Hfa 2 puff INHALATION RT-QID PRN 07/02/21 12/18/21 History Inhaler] Anastrozole [Arimidex] 1 mg PO DAILY 07/02/21 12/18/21 History Codeine Phosphate/Guaifenesin 10 ml PO QID PRN 07/02/21 12/17/21 History [Guaiatussin AC Liquid] Fexofenadine HCl [Michelle Allergy] 180 mg PO DAILY PRN 07/02/21 12/18/21 History Fluticasone Nasal [place] [Flonase 1 spray EA NOSTRIL DAILY 07/02/21 12/18/21 History Nasal [place]] Levofloxacin [Levaquin] 750 mg PO DAILY #5 tab 07/02/21 12/18/21 Rx Levothyroxine Sodium [Synthroid] 100 mcg PO DAILY 07/02/21 12/18/21 History Mirabegron [Myrbetriq] 50 mg PO HS 07/02/21 12/18/21 History Rosuvastatin [Crestor] 10 mg PO HS 07/02/21 12/18/21 History dexAMETHasone [Decadron] 6 mg PO DAILY #5 tablet 07/02/21 12/18/21 Rx Fluticasone/Umeclidin/Vilanter 1 inhalation INHALATION DAILY 12/17/21 12/18/21 History [Barbara Paez 100-62.5-25] Allergies Allergy/AdvReac Type Severity Reaction Status Date / Time clindamycin Allergy Rash/Hives Verified 12/18/21 08:55 Iodinated Contrast Media Allergy Rash/Hives/ Verified 12/18/21 08:55 [Iodinated Contrast Media - Itching Oral and] latex Allergy Rash/Hives/ Verified 12/18/21 08:55 Itching morphine Allergy Rash/Hives/ Verified 12/18/21 08:55 Itching shellfish derived [Shellfish] Allergy Rash/Hives/ Verified 12/18/21 08:55 Itching Physical Exam Vitals: Vital Signs Temp Pulse Pulse Resp BP BP BP 12/20/21 11:26 76 12/20/21 11:19 76 12/20/21 08:35 80 12/20/21 08:25 84 12/20/21 08:00 98.4 F 80 18 103/61 12/20/21 06:38 98.2 F 87 18 95/58 12/20/21 03:49 101.0 F H 95 18 94/57 12/20/21 00:00 100.0 F H 98 18 112/47 12/19/21 20:20 68 12/19/21 20:09 70 12/19/21 20:00 98.4 F 86 18 100/49 12/19/21 16:00 83 18 105/51 107/72 12/19/21 15:52 72 12/19/21 15:43 70 12/19/21 14:00 79 12/19/21 12:04 72 12/19/21 12:00 79 18 88/41 87/52 Pulse Ox 12/20/21 11:26 12/20/21 11:19 12/20/21 08:35 12/20/21 08:25 12/20/21 08:00 94 L 12/20/21 06:38 95 12/20/21 03:49 95 12/20/21 00:00 94 L 12/19/21 20:20 12/19/21 20:09 12/19/21 20:00 90 L 12/19/21 16:00 93 L 12/19/21 15:52 12/19/21 15:43 12/19/21 14:00 12/19/21 12:04 12/19/21 12:00 92 L Intake and Output 12/19/21 12/20/21 12/20/21 22:59 06:59 14:59 Other: # Voids 1 1 GENERAL DESCRIPTION: An elderly female lying in bed, no distress. No tachypnea or accessory muscle of respiration use. HEENT: Shows Pallor , no scleral icterus. Oral mucous membrane is dry. No pharyngeal erythema or thrush NECK: Trachea central, no thyromegaly. LUNGS: Unlabored breathing. Decreased breath sound the bases. No wheeze or crackle. HEART: S1, S2, regular rate and rhythm. No loud murmur ABDOMEN: Soft, no tenderness , guarding or rigidity, no organomegaly EXTREMITIES: Left thigh and groin area with the bruising no redness SKIN: No rash, no masses palpable. NEUROLOGICAL: The patient is awake, alert, oriented x3, mood and affect normal. Results CBC & Chem 7: 12/20/21 12:06 12/20/21 12:06 Labs: Abnormal Lab Results - Last 24 Hours (Table) 12/19/21 12/19/21 12/20/21 Range/Units 13:50 13:50 07:52 RBC 2.62 L 2.62 L (3.80-5.40) m/uL Hgb 7.6 L D 7.5 L (11.4-16.0) gm/dL Hct 24.7 L 24.5 L (34.0-46.0) % MCHC 30.6 L 30.7 L (31.0-37.0) g/dL Lymphocytes # 0.9 L (1.0-4.8) k/uL Chloride 110 H (98-107) mmol/L BUN 35 H (7-17) mg/dL Creatinine 1.25 H (0.52-1.04) mg/dL Glucose 142 H (74-99) mg/dL Assessment and Plan (1) Fever Current Visit: No Status: Acute Code(s): R50.9 - FEVER, UNSPECIFIED SNOMED Code(s): 551352565 Plan: 1patient with episode of fever earlier this morning and this patient electively admitted to the hospital for left heart cath and the patient did have slight subcutaneous hematoma to the left thigh area possibly responsible for her fever patient currently does not look toxic and do not have any obvious focus of infection chest x-ray findings is mostly atelectasis clinically not behaving as pneumonia. 2we will obtain blood culture CRP procalcitonin to complete the work-up. 3marked the area of the bruise and watch her hemoglobin closely. 4if the patient remains to be afebrile today and her hemoglobin is stable she will be able to go home in the morning with no need for antibiotic therapy this was discussed with the cardiology on the phone, no need for empiric antibiotic at this point. We will follow on clinical condition and cultures to further adjust medication if needed Thank you for this consultation will follow this patient along with you Time with Patient: Greater than 30
[2021-12-21 04:58] VITALS: BP 124/72; RESP 24; TEMP 97.8
[2021-12-21] MEDS: LEVOTHYROXINE 100 MCG TAB PO SCH (06:37)
[2021-12-21] MEDS: IPRATROPIUM 0.5 MG/2.5 ML NEBU INHALATION SCH (08:23)
[2021-12-21] MEDS: SYMBICORT 80-4.5 MCG INHALER INHALATION SCH (08:24)
[2021-12-21 08:34] LABS: Basophils % (A) 1 %; Eosinophils # (A) 0.3 k/uL (0-0.7); Eosinophils % (A) 3 %; HGB 8.1 gm/dL (11.4-16.0); Hypochromasia Moderate; Lymphocytes # (A) 0.9 k/uL (1.0-4.8); Lymphocytes % (A) 13 %; MCH 29.5 pg (25.0-35.0); MCHC 31.3 g/dL (31.0-37.0); MCV 94.3 fL (80.0-100.0); Mean Platelet Volume 7.7; Monocytes # (A) 0.5 k/uL (0-1.0); Monocytes % (A) 7 %; Neutrophils # (A) 5.5 k/uL (1.3-7.7); Neutrophils % (A) 75 %; Platelet Count 270 k/uL (150-450); RBC 2.75 m/uL (3.80-5.40); RDW 15.9 % (11.5-15.5); WBC 7.3 k/uL (3.8-10.6)
[2021-12-21 08:40] VITALS: PULSE 94
[2021-12-21] MEDS: MELOXICAM 7.5 MG TAB PO SCH (08:56)
[2021-12-21] MEDS: POTASSIUM CHLORIDE ER 20 MEQ TAB.ER PO SCH (08:56)
[2021-12-21] MEDS: dexAMETHasone 2 MG TAB PO SCH (08:56)
[2021-12-21] MEDS: BUMETANIDE 1 MG TAB PO SCH (08:56)
[2021-12-21] MEDS: ASPIRIN 325 MG TAB PO SCH (08:56)
[2021-12-21] MEDS: FLUTICASONE 50MCG/SPRAY NASAL 16GM EA NOSTRIL SCH (08:57)
[2021-12-21] MEDS: allopurinoL 300 MG TAB PO SCH (08:57)
[2021-12-21] MEDS: ANASTROZOLE 1 MG TAB PO SCH (08:57)
--- NOTE | 2021-12-21 09:03 | P.DS ---
Providers Date of admission: 12/18/21 08:35 Attending physician: Sushil Petty Consults: 12/20/21 07:41 Consult Physician Routine Consulting Provider: Alejandra Hutton Consult Reason/Comments: fever Do you want consulting provider notified?: Yes Primary care physician: Stated None Hospital Course: This is a 76-year-old female patient with history of aortic stenosis as well as carotid disease was admitted to the hospital a few days ago she underwent a heart catheterization as well as an aortic arch and carotid angiogram. She was going to be discharged home she was found to be having low blood pressure. Further investigation was performed and revealed a hemoglobin around 8 which was a drop compared to before. We did a computed tomography scan to rule out the bleeding and the patient was found to have a hematoma at the left thigh about 4-5 cm in diameter. Also she was having some temperature. We consulted infectious disease. They felt that the fever source is likely to be the hematoma. The patient was seen this morning. She is asymptomatic H is hemodynamically stable. She would like to go home. I'm going to discharge the patient without any blood pressure medications including beta alondra or diuretics. I'll follow-up with the patient next week in the office Plan - Discharge Summary Discharge Rx Participant: Yes New Discharge Prescriptions: Continue Aspirin EC [Ecotrin] 325 mg PO DAILY Potassium Chloride ER [K-Dur 20] 20 meq PO DAILY Meloxicam [Mobic] 15 mg PO DAILY Latanoprost [Xalatan 0.005%] 1 drop BOTH EYES HS allopurinoL [Zyloprim] 300 mg PO DAILY Anastrozole [Arimidex] 1 mg PO DAILY Rosuvastatin [Crestor] 10 mg PO HS Albuterol Inhaler [Ventolin Hfa Inhaler] 2 puff INHALATION RT-QID PRN PRN Reason: Shortness Of Breath Fexofenadine HCl [Michelle Allergy] 180 mg PO DAILY PRN PRN Reason: Allergy Symptoms Mirabegron [Myrbetriq] 50 mg PO HS Fluticasone Nasal [place] [Flonase Nasal [place]] 1 spray EA NOSTRIL DAILY Codeine Phosphate/Guaifenesin [Guaiatussin AC Liquid] 10 ml PO QID PRN PRN Reason: Cough Levothyroxine Sodium [Synthroid] 100 mcg PO DAILY dexAMETHasone [Decadron] 6 mg PO DAILY #5 tablet Levofloxacin [Levaquin] 750 mg PO DAILY #5 tab Fluticasone/Umeclidin/Vilanter [Trelegy Ellipta 100-62.5-25] 1 inhalation INHALATION DAILY Discontinued Bumetanide [BUMEX] 1 mg PO DAILY Bisoprolol [Zebeta] 5 mg PO HS Losartan Potassium [Cozaar] 100 mg PO DAILY Discharge Medication List Aspirin EC [Ecotrin] 325 mg PO DAILY 09/12/16 [History] Latanoprost [Xalatan 0.005%] 1 drop BOTH EYES HS 09/12/16 [History] Meloxicam [Mobic] 15 mg PO DAILY 09/12/16 [History] Potassium Chloride ER [K-Dur 20] 20 meq PO DAILY 09/12/16 [History] allopurinoL [Zyloprim] 300 mg PO DAILY 09/12/16 [History] Albuterol Inhaler [Ventolin Hfa Inhaler] 2 puff INHALATION RT-QID PRN 07/02/21 [History] Anastrozole [Arimidex] 1 mg PO DAILY 07/02/21 [History] Codeine Phosphate/Guaifenesin [Guaiatussin AC Liquid] 10 ml PO QID PRN 07/02/21 [History] Fexofenadine HCl [Michelle Allergy] 180 mg PO DAILY PRN 07/02/21 [History] Fluticasone Nasal [place] [Flonase Nasal [place]] 1 spray EA NOSTRIL DAILY 07/02/21 [History] Levofloxacin [Levaquin] 750 mg PO DAILY #5 tab 07/02/21 [Rx] Levothyroxine Sodium [Synthroid] 100 mcg PO DAILY 07/02/21 [History] Mirabegron [Myrbetriq] 50 mg PO HS 07/02/21 [History] Rosuvastatin [Crestor] 10 mg PO HS 07/02/21 [History] dexAMETHasone [Decadron] 6 mg PO DAILY #5 tablet 07/02/21 [Rx] Fluticasone/Umeclidin/Vilanter [Trelegy Ellipta 100-62.5-25] 1 inhalation INHALATION DAILY 12/17/21 [History] Follow up Appointment(s)/Referral(s): [facility] [NON-STAFF] - Sushil Petty MD [STAFF PHYSICIAN] - 12/26/21 3:45 pm (Appointment is at [facility] [phone])
== END 2021-12-21 10:45 | disposition home or self-care (01) ==
LOC: OR 12:37 → UNDOADMIN 12-18 08:35 → 2ORMAIN 12-18 08:35 → 6NMEDSUR 12-18 12:36 → EDSTATUS 12-18 13:30 → 6NMEDSUR 12-18 15:05 → 3SCARD 12-18 15:05 → UNDODISIN 12-21 10:45 → OR 12-21 10:45
PROVIDERS: ATTEND Internal Medicine Interventional Cardiology
DX: I08.0 Rheumatic disorders of both mitral and aortic valves (principal); I65.21 Occlusion and stenosis of right carotid artery; R03.1 Nonspecific low blood-pressure reading; R50.9 Fever, unspecified; D64.9 Anemia, unspecified; M79.81 Nontraumatic hematoma of soft tissue; I10 Essential (primary) hypertension; E78.5 Hyperlipidemia, unspecified; I49.3 Ventricular premature depolarization; Z82.49 Family history of ischemic heart disease and other diseases of the circulatory system; Z72.0 Tobacco use; Z79.1 Long term (current) use of non-steroidal anti-inflammatories (NSAID); Z79.82 Long term (current) use of aspirin; Z79.51 Long term (current) use of inhaled steroids; Z79.890 Hormone replacement therapy; Z79.899 Other long term (current) drug therapy; Z88.6 Allergy status to analgesic agent; Z88.1 Allergy status to other antibiotic agents; Z91.040 Latex allergy status; Z88.5 Allergy status to narcotic agent; Z91.041 Radiographic dye allergy status; Z91.013 Allergy to seafood; Z80.9 Family history of malignant neoplasm, unspecified
CPT/HCPCS: 94640 ×6; 93453; 36222; 80053; 80048 ×2; 85025 ×4; 86140; 87040; 84145; 87635; 71046; 71250; 74176; C8929; C1769 ×5; C1894 ×3; J2250; J2405; J2001; J0461; J3010; S0170 ×3; J1644; J8540; Q9950; Q9966; Q9967; 93306

== ENCOUNTER 2022-06-29 09:12 | Inpatient (IN) | payer MEDICARE ==
[2022-06-29] MEDS ORDERED: SODIUM CHLORIDE 0.9% 500 ML 500 ML IV STA (09:27)
[2022-06-29] MEDS ORDERED: SODIUM CHLORIDE 0.9% 1,000 ML IV STA ×2 (09:35→10:37)
[2022-06-29] MEDS ORDERED: PANTOPRAZOLE 40 MG/10 ML VIAL IVP STA (09:35)
[2022-06-29] MEDS ORDERED: ONDANSETRON 4 MG/2 ML VIAL IVP STA (09:35)
[2022-06-29] MEDS ORDERED: AZITHROMYCIN 500 MG in SODIUM CHLORIDE 0.9% 250 ML IVPB ONE (10:00)
[2022-06-29 10:50] LABS: ALT 17 U/L (4-34); AST 18 U/L (14-36); African American GFR (CKD) 48 (>60 ml/min/1.73 sqM); Albumin 3.4 g/dL (3.5-5.0); Alkaline Phosphatase 65 U/L (38-126); Amylase <30 U/L (30-110); Anion Gap 8 mmol/L; Blood Urea Nitrogen 28 mg/dL (7-17); Calcium 8.7 mg/dL (8.4-10.2); Carbon Dioxide 25 mmol/L (22-30); Chloride 102 mmol/L (98-107); Glucose 161 mg/dL (74-99); Lipase 33 U/L (23-300); Non-African American GFR(CKD) 42 (>60 ml/min/1.73 sqM); Potassium 4.5 mmol/L (3.5-5.1); Sodium 135 mmol/L (137-145); Total Bilirubin 0.3 mg/dL (0.2-1.3); Total Protein 6.3 g/dL (6.3-8.2)
[2022-06-29 11:03] LABS: Anisocytosis Slight; Basophils % (A) 0 %; Eosinophils # (A) 0.1 k/uL (0-0.7); Eosinophils % (A) 1 %; HCT 24.9 % (34.0-46.0); HGB 7.5 gm/dL (11.4-16.0); Hypochromasia Slight; Lymphocytes # (A) 0.4 k/uL (1.0-4.8); Lymphocytes % (A) 5 %; MCH 24.2 pg (25.0-35.0); MCHC 30.1 g/dL (31.0-37.0); MCV 80.3 fL (80.0-100.0); Microcytosis Slight; Monocytes # (A) 0.4 k/uL (0-1.0); Monocytes % (A) 5 %; Neutrophils # (A) 7.7 k/uL (1.3-7.7); Neutrophils % (A) 88 %; Platelet Count 159 k/uL (150-450); RDW 17.8 % (11.5-15.5); WBC 8.8 k/uL (3.8-10.6)
[2022-06-29] MEDS ORDERED: NALOXONE 0.4 MG/ML 1 ML VIAL IV PRN (12:15)
--- NOTE | 2022-06-29 12:15 | ED ---
General Adult HPI - General Chief complaint: Shortness of Breath Stated complaint: stomach pain, sob Time Seen by Provider: 06/29/22 09:36 Source: patient, EMS, RN notes reviewed, old records reviewed Mode of arrival: EMS Limitations: no limitations - History of Present Illness Initial comments: Patient is a 77-year-old female who presents emergency Department as a transfer from [facility] over concern for pneumonia as well as mild to moderate peric ardial effusion. Has a past medical history significant for COPD, right lower lobe lobectomy, recurrent pneumonia, breast cancer, colon cancer, aortic stenosis, carotid stenosis, chronic anemia. Presented to [facility] last night complaining of multiple days of upper respiratory symptoms, as well as some intermittent nausea. Patient did have chest pain yesterday as well which prompted her to present in addition to her upper respiratory symptoms. Chest pain was the primary reason for presentation. Was diagnosed with a right-sided pneumonia there as well as the moderate pericardial effusion. Was transferred here for further evaluation. Laboratory studies there were largely within accep table limits. She was started on Rocephin there. Patient was accepted by prior emergency department physician. CT imaging was done there as well which revealed a suspicious right lower lobe infiltrate concerning for pneumonia as well as the moderate pericardial effusion. I discussed with the patient her presentation. She states she felt nauseous on the right overhearing throughout but otherwise she complains of intermittent shortness breath over the last few days with upper respiratory symptoms. We discussed what they described at the other hospital and the plan for for here is to repeat some labs, as well as start her on Zithromax in addition to Rocephin. She was in agreement this pl an.Patient did receive aspirin. - Related Data Home Medications Medication Instructions Recorded Confirmed Latanoprost [Xalatan 0.005%] 1 drop BOTH EYES HS 09/12/16 06/29/22 Meloxicam [Mobic] 15 mg PO DAILY 09/12/16 06/29/22 Potassium Chloride ER [K-Dur 20] 20 meq PO DAILY 09/12/16 06/29/22 allopurinoL [Zyloprim] 300 mg PO DAILY 09/12/16 06/29/22 Albuterol Inhaler [Ventolin Hfa 2 puff INHALATION RT-Q6H PRN 07/02/21 06/29/22 Inhaler] Anastrozole [Arimidex] 1 mg PO DAILY 07/02/21 06/29/22 Codeine Phosphate/Guaifenesin 10 ml PO QID PRN 07/02/21 06/29/22 [Guaiatussin AC Liquid] Mirabegron [Myrbetriq] 50 mg PO DAILY 07/02/21 06/29/22 Fluticasone/Umeclidin/Vilanter 1 puff INHALATION RT-DAILY 12/17/21 06/29/22 [Trelegy Ellipta 100-62.5-25] Betamethasone Dipropionate 1 applic TOPICAL BID PRN 06/29/22 06/29/22 [Betamethasone Dipropionate 0.05%] Bisoprolol Fumarate 5 mg PO DAILY 06/29/22 06/29/22 Bumetanide [Bumex] 1 mg PO DAILY 06/29/22 06/29/22 HYDROcodone/APAP 5-325MG [Garner 1 tab PO Q4HR PRN 06/29/22 06/29/22 5-325] Levothyroxine Sodium 200 mcg PO AC-BRKFST 06/29/22 06/29/22 Liquid Iron (Unknown Dose) 1 tsp PO DAILY 06/29/22 06/29/22 Losartan Potassium [Cozaar] 25 mg PO DAILY 06/29/22 06/29/22 Rosuvastatin Calcium 5 mg PO DAILY 06/29/22 06/29/22 Allergies Allergy/AdvReac Type Severity Reaction Status Date / Time clindamycin Allergy Rash/Hives Verified 06/29/22 12:04 indomethacin Allergy Verified 06/29/22 12:04 Iodinated Contrast Media Allergy Rash/Hives/ Verified 06/29/22 12:04 [Iodinated Contrast Media - Itching Oral and] latex Allergy Rash/Hives/ Verified 06/29/22 12:04 Itching morphine Allergy Rash/Hives/ Verified 06/29/22 12:04 Itching shellfish derived [Shellfish] Allergy Rash/Hives/ Verified 06/29/22 12:04 Itching Review of Systems ROS Statement: Those systems with pertinent positive or pertinent negative responses have been documented in the HPI. Review of Systems: CONST: Denies fever EYES: Denies blurry vision ENT: Denies nasal congestion C/V: Denies Chest pain RESP: Endorses cough GI: Denies abdominal pain : Denies dysuria SKIN: Denies rash. MSK: Denies joint pain. NEURO: Denies headache ROS Other: All systems not noted in ROS Statement are negative. Past Medical History Past Medical History: Cancer, CVA/TIA, Eye Disorder, Hyperlipidemia, Hypertension, Thyroid Disorder Additional Past Medical History / Comment(s): LT breast CA, GLAUCOMA, DVT RT LEG YEARS AGO History of Any Multi-Drug Resistant Organisms: None Reported Past Surgical History: Bowel Resection, Orthopedic Surgery Additional Past Surgical History / Comment(s): colectomy, R lower lung removed, LT BREAST LUMPECTOMY, COLONOSCOPY, BILAT CATARACTS REMOVED WITH LENS IMPLANTS, Past Anesthesia/Blood Transfusion Reactions: Motion Sickness Past Psychological History: No Psychological Hx Reported Smoking Status: Former smoker Past Alcohol Use History: None Reported Past Drug Use History: None Reported - Past Family History Mother Family Medical History: Cancer, Myocardial Infarction ([place]) Father Family Medical History: Diabetes Mellitus Sister(s) Family Medical History: Cancer General Exam - General Exam Comments Initial Comments: General: Appears in no acute distress. HEAD: Normal with no signs of head trauma. EYES: PERRLA, EOMI, conjunctiva normal, no discharge. ENT: Hearing grossly intact, normal oropharynx. RESPIRATORY: Clear breath sounds bilaterally. No wheezes, rales, or rhonchi. . Mild hypoxia on room air. On 2 L for comfort. C/V: Regular rate and rhythm. S1 and S2 auscultated, no edema, peripheral pulses 2+ and intact throughout ABD: Abd is soft, nontender, nondistended EXT: Normal range of motion, no obvious deformity SKIN: No rashes or lesions observed on exposed skin. NEURO: Alert and oriented x 4. Cranial nerves II-XII intact. No focal sensory or strength deficits. Limitations: no limitations Course Vital Signs 06/29/22 06/29/22 06/29/22 09:15 09:30 10:00 Temperature 97.9 F Pulse Rate 80 80 79 Respiratory 20 18 16 Rate Blood Pressure 90/55 90/55 90/52 O2 Sat by Pulse 94 L 94 L 94 L Oximetry 06/29/22 06/29/22 06/29/22 10:30 11:00 11:30 Temperature Pulse Rate 77 84 79 Respiratory 20 20 17 Rate Blood Pressure 90/59 91/52 97/55 O2 Sat by Pulse 95 97 97 Oximetry 06/29/22 06/29/22 06/29/22 12:00 12:09 12:30 Temperature Pulse Rate 79 79 80 Respiratory 18 18 22 Rate Blood Pressure 92/56 100/62 100/62 O2 Sat by Pulse 98 95 97 Oximetry 06/29/22 06/29/22 06/29/22 13:00 13:30 14:00 Temperature Pulse Rate 75 76 74 Respiratory 18 16 18 Rate Blood Pressure 99/54 92/54 89/57 O2 Sat by Pulse 98 99 98 Oximetry 06/29/22 06/29/22 06/29/22 14:30 15:00 15:26 Temperature Pulse Rate 75 81 78 Respiratory 24 24 Rate Blood Pressure 98/64 101/75 O2 Sat by Pulse 99 98 Oximetry 06/29/22 06/29/22 15:30 15:38 Temperature Pulse Rate 75 76 Respiratory 28 H Rate Blood Pressure 101/65 O2 Sat by Pulse 99 Oximetry Medical Decision Making - Medical Decision Making Based on the patient's presentation and physical exam, I am concerned for pneumonia for the patient as well as the pericardial effusion. She'll be admitted to the hospital she was transferred here for admission for evaluation by cardiology. Vital signs within acceptable limits. She states she chronically has blood pressures ranging in the 90s and low 100s. Echo was ordered by myself. Labs reveal a chronic anemia of 7.5. Troponin is undetectable. Covid, flu or negative. Remainder of the laboratory studies are within acceptable limits. She was given IV fluid hydration. I did order the patient IV Zofran for nausea after the ambulance ride. She was in agreement this plan. She'll be placed on maintenance IV fluids in addition IV azithromycin. IV Rocephin was ordered for tomorrow. Repeat EKG showed no signs of acute ischemia. She was in agreement with admission.Cardiac troponin is undetectable. I spoke with the admitting team, city call Dr. Manuel who accepted the patient. Patient was admitted in stable condition. Cardiology was consulted. Echo is pending. Was pt. sent in by a medical professional or institution (, ANA, LIME KILN TENDER, urgent care, hospital, or longterm...) When possible be specific @ -Yes, transferred from [facility] for cardiology evaluation. Did you speak to anyone other than the patient for history (EMS, parent, family, police, friend...)? What history was obtained from this source @ -No Did you review nursing and triage notes (agree or disagree)? Why? @ -I reviewed and agree with nursing and triage notes Were old charts reviewed (outside hosp., previous admission, EMS record, old EKG, old radiological studies, urgent care reports/EKG's, longterm records)? Report findings @ -Yes, old charts were reviewed from November 2021. This includes EKG. Differential Diagnosis (chest pain, altered mental status, abdominal pain women, abdominal pain men, vaginal bleeding, weakness, fever, dyspnea, syncope, headache, dizziness, GI bleed, back pain, seizure, CVA, palpatations, mental health)? @ -Pneumonia, ACS, cancer, COPD. Pericardial effusion. This list is not all inclusive. EKG interpreted by me (3pts min.). @ -As above X-rays interpreted by me (1pt min.). @ -None done CT interpreted by me (1pt min.). @ -None done. A read from outside CT as well as images were of limited to the system. U/S interpreted by me (1pt. min.). @ -None done What testing was considered but not performed or refused? (CT, X-rays, U/S, labs)? Why? @ -None What meds were considered but not given or refused? Why? @ -None Did you discuss the management of the patient with other professionals (professionals i.e. , PA, LIME KILN TENDER, lab, RT, psych nurse, social service assistant, wood shingle roofer, teacher, chief development officer, shoe caser)? Give summary @ -Yes, Dr. Manuel of [facility] accepted the patient. Was smoking cessation discussed for >3mins.? @ -No Was critical care preformed (if so, how long)? @ -No Were there social determinants of health that impacted care today? How? (Homele ssness, low income, unemployed, alcoholism, drug addiction, transportation, low edu. Level, literacy, decrease access to med. care, assisted, rehab)? @ -No Was there de-escalation of care discussed even if they declined (Discuss DNR or withdrawal of care, Hospice)? DNR status @ -No What co-morbidities impacted this encounter? (DM, HTN, Smoking, COPD, CAD, Cancer, CVA, ARF, Chemo, Hep., AIDS, mental health diagnosis, sleep apnea, morbid obesity)? @ -COPD. Was patient admitted / discharged? Hospital course, mention meds given and route, prescriptions, significant lab abnormalities, going to OR and other pertinent info. @ -Admitted to the hospital. See above for ED course. Undiagnosed new problem with uncertain prognosis? @ -No Drug Therapy requiring intensive monitoring for toxicity (Heparin, Nitro, Insu jeanne, Cardizem)? @ -No Were any procedures done? @ -No Diagnosis/symptom? @ -Right lower lobe pneumonia Acute, or Chronic, or Acute on Chronic? @ -Acute Uncomplicated (without systemic symptoms) or Complicated (systemic symptoms)? @ -Complicated Side effects of treatment? @ -No Exacerbation, Progression, or Severe Exacerbation? @ -No Poses a threat to life or bodily function? How? (Chest pain, [place], [place], pneumonia, PE, COPD, DKA, ARF, appy, cholecystitis, CVA, Diverticulitis, Homicidal, Suicidal, threat to staff... and all critical care pts) @ -Yes, if untreated can result in significant morbidity and mortality. Diagnosis/symptom? @ -Moderate pericardial effusion Acute, or Chronic, or Acute on Chronic? @ -Acute Uncomplicated (without systemic symptoms) or Complicated (systemic symptoms)? @ -Uncomplicated Side effects of treatment? @ -none Exacerbation, Progression, or Severe Exacerbation] @ -no Poses a threat to life or bodily function? @ -Yes, if untreated can result in significant morbidity and mortality. Diagnosis/symptom? @ -Chronic anemia Acute, or Chronic, or Acute on Chronic? @ -Chronic Uncomplicated (without systemic symptoms) or Complicated (systemic symptoms)? @ -Uncomplicated Side effects of treatment? @ -none Exacerbation, Progression, or Severe Exacerbation] @ -no Poses a threat to life or bodily function? @ -no - Lab Data Result diagrams: 06/29/22 10:34 06/29/22 10:34 Lab Results 06/29/22 06/29/22 06/29/22 Range/Units 10:34 10:34 10:34 WBC 8.8 (3.8-10.6) k/uL RBC 3.10 L (3.80-5.40) m/uL Hgb 7.5 L (11.4-16.0) gm/dL Hct 24.9 L (34.0-46.0) % MCV 80.3 (80.0-100.0) fL MCH 24.2 L (25.0-35.0) pg MCHC 30.1 L (31.0-37.0) g/dL RDW 17.8 H (11.5-15.5) % Plt Count 159 (150-450) k/uL MPV 8.0 Neutrophils % 88 % Lymphocytes % 5 % Monocytes % 5 % Eosinophils % 1 % Basophils % 0 % Neutrophils # 7.7 (1.3-7.7) k/uL Lymphocytes # 0.4 L (1.0-4.8) k/uL Monocytes # 0.4 (0-1.0) k/uL Eosinophils # 0.1 (0-0.7) k/uL Basophils # 0.0 (0-0.2) k/uL Hypochromasia Slight Anisocytosis Slight Microcytosis Slight Sodium 135 L (137-145) mmol/L Potassium 4.5 (3.5-5.1) mmol/L Chloride 102 (98-107) mmol/L Carbon Dioxide 25 (22-30) mmol/L Anion Gap 8 mmol/L BUN 28 H (7-17) mg/dL Creatinine 1.24 H (0.52-1.04) mg/dL Est GFR (CKD-EPI)AfAm 48 (>60 ml/min/1.73 sqM) Est GFR (CKD-EPI)NonAf 42 (>60 ml/min/1.73 sqM) Glucose 161 H (74-99) mg/dL Plasma Lactic Acid Terrance 0.9 (0.7-2.0) mmol/L Calcium 8.7 (8.4-10.2) mg/dL Total Bilirubin 0.3 (0.2-1.3) mg/dL AST 18 (14-36) U/L ALT 17 (4-34) U/L Alkaline Phosphatase 65 (38-126) U/L Troponin I (0.000-0.034) ng/mL Total Protein 6.3 (6.3-8.2) g/dL Albumin 3.4 L (3.5-5.0) g/dL Amylase <30 L (30-110) U/L Lipase 33 (23-300) U/L Influenza Type A (PCR) (Not Detectd) Influenza Type B (PCR) (Not Detectd) RSV (PCR) (Not Detectd) SARS-CoV-2 (PCR) (Not Detectd) 06/29/22 06/29/22 Range/Units 10:34 10:34 WBC (3.8-10.6) k/uL RBC (3.80-5.40) m/uL Hgb (11.4-16.0) gm/dL Hct (34.0-46.0) % MCV (80.0-100.0) fL MCH (25.0-35.0) pg MCHC (31.0-37.0) g/dL RDW (11.5-15.5) % Plt Count (150-450) k/uL MPV Neutrophils % % Lymphocytes % % Monocytes % % Eosinophils % % Basophils % % Neutrophils # (1.3-7.7) k/uL Lymphocytes # (1.0-4.8) k/uL Monocytes # (0-1.0) k/uL Eosinophils # (0-0.7) k/uL Basophils # (0-0.2) k/uL Hypochromasia Anisocytosis Microcytosis Sodium (137-145) mmol/L Potassium (3.5-5.1) mmol/L Chloride (98-107) mmol/L Carbon Dioxide (22-30) mmol/L Anion Gap mmol/L BUN (7-17) mg/dL Creatinine (0.52-1.04) mg/dL Est GFR (CKD-EPI)AfAm (>60 ml/min/1.73 sqM) Est GFR (CKD-EPI)NonAf (>60 ml/min/1.73 sqM) Glucose (74-99) mg/dL Plasma Lactic Acid Terrance (0.7-2.0) mmol/L Calcium (8.4-10.2) mg/dL Total Bilirubin (0.2-1.3) mg/dL AST (14-36) U/L ALT (4-34) U/L Alkaline Phosphatase (38-126) U/L Troponin I <0.012 (0.000-0.034) ng/mL Total Protein (6.3-8.2) g/dL Albumin (3.5-5.0) g/dL Amylase (30-110) U/L Lipase (23-300) U/L Influenza Type A (PCR) Not Detected (Not Detectd) Influenza Type B (PCR) Not Detected (Not Detectd) RSV (PCR) Not Detected (Not Detectd) SARS-CoV-2 (PCR) Not Detected (Not Detectd) - EKG Data -: EKG Interpreted by Me EKG Comments: 12-lead Electrocardiogram Interpretation Note EKG was reviewed and interpreted by myself. 12-lead ECG performed at 0925 is interpreted by me as revealing normal sinus rhythm at a rate of 79 beats per minute. [place] is normal. [place] Intervals 173 ms, QRS durations 89 ms, QTc is 403 ms.. There were no ST or T wave abnormalities to suggest myocardial ischemia or injury. R wave progression across the precordium was satisfactory. By my interpretation this EKG is non-diagnostic for acute ischemia. When compared with EKG from July 2021, no significant change. Chronic T-wave inversion in lead III. Disposition Clinical Impression: Pneumonia, Pericardial effusion, Chronic anemia Disposition: ADMITTED IP TO THIS HOSP Condition: Stable Time of Disposition: 11:50
[2022-06-29] MEDS ORDERED: IPRATROPIUM-ALBUTEROL 3 ML NEB INHALATION PRN (14:49)
--- NOTE | 2022-06-29 15:18 | P.HPIM ---
History of Present Illness H&P Date: 06/29/22 History of Presenting Illness: Patient is a very pleasant 77-year-old female with a past medical history of COPD status post right lower lobe lobectomy secondary to recurrent obstructive pneumonia and concerns of possible lung cancer, breast cancer status post lumpectomy and radiation, colon cancer status post bowel resection, history of severe aortic stenosis, severe carotid stenosis, glaucoma, anemia of chronic disease with reported baseline hemoglobin of 8, and obstructive apnea CPAP dependent nightly. She presented to [facility] emergency department as a transfer from [facility] secondary to findings of pneumonia and pericardial effusion. Patient initially presented to the emergency department at [place] with a chief complaint of chest pain. Patient reports she was sitting on the couch visiting with her daughter and son-in-law when she developed a sudden onset pain to her midsternal epigastric region and chest chest radiating up into her throat. Patient reports this was a pretty constant pain so she decided to go and lie down to see if she felt better, patient reports immediately upon lying down she became significantly short of breath and felt as though she was going to stop breathing. Patient states she sat up and called her daughter whom then called EMS for transport to the hospital. Patient reports up until this chest pain she has been feeling at her baseline. She reports she is chronically short of breath secondary to advanced COPD and states she has never breathed the same since she had her right lower lobe lobectomy in 2016. She denies ever needing home oxygen and denies ever following with a house nurse but does report following with a business consultant, Dr. Petty for monitoring/management of her severe aortic stenosis and severe carotid artery stenosis. Patient denies having any recent fevers, chills, diaphoresis, exposure to known ill contacts, dizziness, lightheadedness, headache, palpitations, abdominal pain, nausea, vomiting, or experiencing any noted weakness/numbness/tingling/swelling in her extremities. Patient does report after she arrived at [facility] she was given morphine which resulted in significant nausea with multiple episodes of vomiting which again reoccurred during ambulance ride to our facility. Patient denies experiencing any nausea or vomiting prior to arrival at [facility]. Patient also denies experiencing any recent difficulties with swallowing, choking with food, or feelings as though her food has went down the wrong pipe. Patient and patient's family at bedside report blood pressures are normally around 90/50. Patient underwent full evaluation/workup at [facility] (please see imaging and lab results reported below) and was found to have a moderate pericardial effusion along with right lower lobe pneumonia. She was transferred to our facility for admission to the hospital and to be evaluated by a business consultant. Upon arrival to our emergency department, patient underwent evaluation. Vital signs upon arrival blood pressure 90/55, heart rate 80, respiratory rate 20, and SpO2 of 94% on 2 L O2 via nasal cannula. CBC was completed revealing microchromic anemia with hemoglobin of 7.5. BMP revealing sodium 135, BUN 28, creatinine 1.24, and GFR 42. Repeat troponin negative at less than 0.012. Influenza A, influenza B, RSV, and Covid PCR negative. EKG was completed showing sinus rhythm at [address] changes in inferior leads I, II, and aVF. Patient was started on IV antibiotics azithromycin and Rocephin. Thoroughly discussed patient's case with ED physician and patient has been accepted for admission under our services with consultation to cardiology. Information obtained by chart review, transfer paperwork, patient, patient's family at bedside, and discussion with ED physician. Reviewed transfer packet and workup completed at [facility]. Labs: CBC reviewed revealing WBC count of 11.9, hemoglobin 10.4, and platelet count of 366. Lipase normal findings at 36. Troponin negative value at 0.02. Glucose 104. Renal function stable with BUN 20, creatinine 0.9, and GFR of > 60. CT abdomen and pelvis was completed showing posterior medial right lower lobe infiltrate suspicious for pneumonia reported to contain regions of high density suspicious for possible aspirated oral contrast or food, moderate pericardial effusion, cardiomegaly, distal colonic postsurgical changes, 3.2 cm rim calcified complex cyst in the right lower pole of the right kidney region likely benign. Chest x-ray report reviewed stating moderate perihilar infiltrates with right pleural effusion correlate for pneumonia versus pulmonary vascular congestion, moderate cardiomegaly with increased an apparent heart sides since previous exam and correlates with pericardial effusion reported on computed tomography scan. EKG completed at [facility] reviewed and upon personal interpretation showing normal sinus rhythm with frequent PVCs. Review of systems: Pertinent positives and negatives as discussed in HPI, a complete review of systems was performed and all other systems are negative. Physical exam: Vital signs reviewed and stable. General: Nontoxic, no distress and appears stated age. Morbidly Obese. Derm: Skin warm and dry, normal coloration for ethnicity. Head: Atraumatic, normocephalic and symmetric. Eyes: EOMs intact, no lid lag, and anicteric sclera Mouth: no lip lesions, mucus membranes moist Cardiovascular: regular rate and rhythm with normal S1S2, stage IV systolic murmur, positive posterior tibial pulses bilaterally, and cap refill < 2 seconds. Lungs: Respirations even, regular, and unlabored on 2 L O2 via nasal cannula. Lungs slightly diminished. No ronchi, no rales, no wheezing, and no accessory muscle usage. Abdominal: soft, nontender to palpation, no guarding, no appreciable organomegaly Ext: ROM intact. No gross muscle atrophy, 1+ pitting bilateral lower extremity edema, no contractures Neuro: Speech clear, face symmetrical and CN II-XII grossly intact with no noted focal neuro deficits Psych: Alert and oriented to person, place, time, and situation. Appropriate and pleasant affect. Assessment and Plan of Care: Chest pain and shortness of breath Moderate pericardial effusion Right lower lobe pneumonia COPD status post right lower lobe lobectomy Severe aortic stenosis Severe carotid stenosis -Troponins reviewed and negative. -BNP ordered -Echocardiogram to be completed -EKG reviewed showing sinus mechanism with mild ST changes in inferior leads which appears to be changed when compared to EKG completed on 07/02/21 -Cardiology consulted, appreciate recommendations -Order placed for telemetry monitoring -Patient to continue to receive oxygen as needed and discussed with RN and that oxygen should be titrated to maintain SPO2 equal to or greater than 90% and rec ommend weaning once patient tolerates. 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 -Patient denies any bleeding or bruising. Patient states her hemoglobin has not been over 8 in almost a year. -We will continue to order and monitor CBC closely and will transfuse as needed for hemoglobin less than 7. Obstructive sleep apnea CPAP dependent -Order placed for CPAP nightly and while napping History of breast cancer status post lumpectomy and radiation History of colon cancer status post bowel resection -Reported complex cyst noted on CT report of lower pole of right kidney, likely benign. However recommend follow-up with repeat outpatient imaging. The patient is admitted with an anticipated greater than 2 midnight stay for evaluation of pericardial effusion and right lower lobe pneumonia CODE STATUS: Full code DVT prophylaxis: Heparin Discussed with: Pt, pt's daughter and son-in-law, RN, and ED physician Anticipated discharge date: Clinical course to determine Anticipated discharge place: Home A total of 49 minutes was spent on the care of this complex patient more than 50% of the time was spent in counseling and care coordination. Martin Kaur NP rendered care for this patient independently, reviewed the findings and plan as documented in the note above. I did not physically speak with or examine the patient on this date. Past Medical History Past Medical History: Cancer, CVA/TIA, Eye Disorder, Hyperlipidemia, Hypertension, Thyroid Disorder Additional Past Medical History / Comment(s): LT breast CA, GLAUCOMA, DVT RT LEG YEARS AGO History of Any Multi-Drug Resistant Organisms: None Reported Past Surgical History: Bowel Resection, Orthopedic Surgery Additional Past Surgical History / Comment(s): colectomy, R lower lung removed, LT BREAST LUMPECTOMY, COLONOSCOPY, BILAT CATARACTS REMOVED WITH LENS IMPLANTS, Past Anesthesia/Blood Transfusion Reactions: Motion Sickness Past Psychological History: No Psychological Hx Reported Smoking Status: Former smoker Past Alcohol Use History: None Reported Past Drug Use History: None Reported - Past Family History Mother Family Medical History: Cancer, Myocardial Infarction ([place]) Father Family Medical History: Diabetes Mellitus Sister(s) Family Medical History: Cancer Medications and Allergies Home Medications Medication Instructions Recorded Confirmed Type Latanoprost [Xalatan 0.005%] 1 drop BOTH EYES HS 09/12/16 06/29/22 History Meloxicam [Mobic] 15 mg PO DAILY 09/12/16 06/29/22 History Potassium Chloride ER [K-Dur 20] 20 meq PO DAILY 09/12/16 06/29/22 History allopurinoL [Zyloprim] 300 mg PO DAILY 09/12/16 06/29/22 History Albuterol Inhaler [Ventolin Hfa 2 puff INHALATION RT-Q6H PRN 07/02/21 06/29/22 History Inhaler] Anastrozole [Arimidex] 1 mg PO DAILY 07/02/21 06/29/22 History Codeine Phosphate/Guaifenesin 10 ml PO QID PRN 07/02/21 06/29/22 History [Guaiatussin AC Liquid] Mirabegron [Myrbetriq] 50 mg PO DAILY 07/02/21 06/29/22 History Fluticasone/Umeclidin/Vilanter 1 puff INHALATION RT-DAILY 12/17/21 06/29/22 History [Trelegy Ellipta 100-62.5-25] Betamethasone Dipropionate 1 applic TOPICAL BID PRN 06/29/22 06/29/22 History [Betamethasone Dipropionate 0.05%] Bisoprolol Fumarate 5 mg PO DAILY 06/29/22 06/29/22 History Bumetanide [Bumex] 1 mg PO DAILY 06/29/22 06/29/22 History HYDROcodone/APAP 5-325MG [[place] 1 tab PO Q4HR PRN 06/29/22 06/29/22 History 5-325] Levothyroxine Sodium 200 mcg PO AC-BRKFST 06/29/22 06/29/22 History Liquid Iron (Unknown Dose) 1 tsp PO DAILY 06/29/22 06/29/22 History Losartan Potassium [Cozaar] 25 mg PO DAILY 06/29/22 06/29/22 History Rosuvastatin Calcium 5 mg PO DAILY 06/29/22 06/29/22 History Allergies Allergy/AdvReac Type Severity Reaction Status Date / Time clindamycin Allergy Rash/Hives Verified 06/29/22 12:04 indomethacin Allergy Verified 06/29/22 12:04 Iodinated Contrast Media Allergy Rash/Hives/ Verified 06/29/22 12:04 [Iodinated Contrast Media - Itching Oral and] latex Allergy Rash/Hives/ Verified 06/29/22 12:04 Itching morphine Allergy Rash/Hives/ Verified 06/29/22 12:04 Itching shellfish derived [Shellfish] Allergy Rash/Hives/ Verified 06/29/22 12:04 Itching Physical Exam Vitals: Vital Signs Temp Pulse Resp BP Pulse Ox 06/29/22 12:09 79 18 100/62 95 06/29/22 11:30 79 17 97/55 97 06/29/22 11:00 84 20 91/52 97 06/29/22 10:30 77 20 90/59 95 06/29/22 10:00 79 16 90/52 94 L 06/29/22 09:30 80 18 90/55 94 L 06/29/22 09:15 97.9 F 80 20 90/55 94 L Intake and Output 06/28/22 06/29/22 06/29/22 22:59 06:59 14:59 Other: Weight 120.202 kg Results CBC & Chem 7: 06/30/22 07:41 06/30/22 07:41 Labs: Abnormal Lab Results - Last 24 Hours (Table) 06/29/22 06/29/22 Range/Units 10:34 10:34 RBC 3.10 L (3.80-5.40) m/uL Hgb 7.5 L (11.4-16.0) gm/dL Hct 24.9 L (34.0-46.0) % MCH 24.2 L (25.0-35.0) pg MCHC 30.1 L (31.0-37.0) g/dL RDW 17.8 H (11.5-15.5) % Lymphocytes # 0.4 L (1.0-4.8) k/uL Sodium 135 L (137-145) mmol/L BUN 28 H (7-17) mg/dL Creatinine 1.24 H (0.52-1.04) mg/dL Glucose 161 H (74-99) mg/dL Albumin 3.4 L (3.5-5.0) g/dL Amylase <30 L (30-110) U/L
[2022-06-29] MEDS: IPRATROPIUM-ALBUTEROL 3 ML NEB INHALATION SCH ×2 (15:25→19:23)
[2022-06-29] MEDS: HEPARIN SODIUM,PORCINE/PF 5,000 UNIT/0.5 ML SYRINGE SQ SCH (20:55)
[2022-06-29] MEDS: LATANOPROST 0.005% OPHTH DROPS 2.5 ML BTL BOTH EYES SCH (20:56)
[2022-06-29] MEDS: HYDROcodone/APAP 5-325MG 1 EACH TAB PO PRN (23:02)
[2022-06-30] MEDS: LEVOTHYROXINE 100 MCG TAB PO SCH (06:54)
[2022-06-30] MEDS: IPRATROPIUM-ALBUTEROL 3 ML NEB INHALATION SCH ×4 (08:28→20:11)
[2022-06-30 08:29] LABS: Calcium 8.6 mg/dL (8.4-10.2); Potassium 4.8 mmol/L (3.5-5.1)
[2022-06-30] MEDS: SYMBICORT 80-4.5 MCG INHALER INHALATION SCH ×2 (08:29→20:11)
[2022-06-30 08:49] LABS: Anisocytosis Slight; Basophils % (A) 0 %; Eosinophils % (A) 0 %; HCT 31.2 % (34.0-46.0); Hypochromasia Marked; Lymphocytes # (A) 0.6 k/uL (1.0-4.8); Lymphocytes % (A) 7 %; MCH 24.7 pg (25.0-35.0); MCHC 29.2 g/dL (31.0-37.0); MCV 84.7 fL (80.0-100.0); Mean Platelet Volume 7.3; Monocytes # (A) 0.7 k/uL (0-1.0); Monocytes % (A) 8 %; Neutrophils # (A) 6.8 k/uL (1.3-7.7); Neutrophils % (A) 82 %; Platelet Count 300 k/uL (150-450); RBC 3.69 m/uL (3.80-5.40); RDW 17.3 % (11.5-15.5); WBC 8.3 k/uL (3.8-10.6)
[2022-06-30 08:51] LABS: HGB 9.1 gm/dL (11.4-16.0)
[2022-06-30] MEDS ORDERED: LOSARTAN 25 MG TAB PO SCH (09:00)
[2022-06-30] MEDS ORDERED: BISOPROLOL 5 MG TAB PO SCH (09:00)
[2022-06-30] MEDS: allopurinoL 300 MG TAB PO SCH (09:15)
[2022-06-30] MEDS: ATORVASTATIN 10 MG TAB PO SCH (09:15)
[2022-06-30] MEDS: BUMETANIDE 1 MG TAB PO SCH (09:15)
[2022-06-30] MEDS: HEPARIN SODIUM,PORCINE/PF 5,000 UNIT/0.5 ML SYRINGE SQ SCH ×2 (09:16→20:05)
[2022-06-30] MEDS: FERROUS SULFATE ORAL ELIXIR 300 MG/5 ML CUP PO SCH (09:17)
[2022-06-30] MEDS: NON FORMULARY DRUG (Mirabegron [Myrbetriq] 50 MG Tablet) PO SCH (09:20)
[2022-06-30] MEDS ORDERED: BISOPROLOL 5 MG TAB PO STA (10:25)
[2022-06-30] MEDS: AZITHROMYCIN 500 MG in SODIUM CHLORIDE 0.9% 250 ML IVPB SCH (11:31)
--- NOTE | 2022-06-30 11:45 | CA ---
Transthoracic Echo Report Name: Kylie Carrington Age: 77 Gender: F : 1945 Exam Date: 06/30/2022 08:06 Exam Location: [facility] Ht (in): 60 Wt (lb): 265 Ordering Physician: Jim Hernandez MD Attending/Referring Phys: [employer] Field Coordinator Karen Cordova RDCS Procedure CPT: Indications: pericardial effusion Cardiac Hx: Technical Quality: Very technically difficult study Contrast 1: Total Dose (mL): Contrast 2: Total Dose (mL): MEASUREMENTS (Male / Female) Normal Values 2D ECHO LVOT Diameter 2.3 cm LV Diastolic Volume MOD 4C 106.7 cm??? LV Systolic Volume MOD 4C 66.2 cm??? LV Ejection Fraction MOD 4C 38.0 % LV Diastolic Length 4C 8.5 cm LV Systolic Length 4C 7.6 cm M-MODE Aortic Root Diameter MM 3.2 cm LA Systolic Diameter MM 5.2 cm LA Ao Ratio MM 1.6 MV E Point Septal Separation 0.3 cm AV Cusp Separation MM 0.7 cm DOPPLER AV Peak Velocity 382.1 cm/s AV Peak Gradient 58.4 mmHg AV Mean Velocity 330.6 cm/s AV Mean Gradient 50.1 mmHg AV Velocity Time Integral 81.2 cm LVOT Peak Velocity 113.6 cm/s LVOT Peak Gradient 5.2 mmHg LVOT Velocity Time Integral 27.2 cm LVOT Stroke Volume 113.4 cm??? LVOT Stroke Volume Index 53.9 ml/m??? AV Area Cont Eq vti 1.4 cm??? AV Area Cont Eq pk 1.2 cm??? MV Area PHT 3.9 cm??? MR Peak Velocity 331.9 cm/s MR Peak Gradient 44.1 mmHg Mitral E Point Velocity 105.3 cm/s Mitral A Point Velocity 113.5 cm/s Mitral E to A Ratio 0.9 MV Deceleration Time 195.6 ms TR Peak Velocity 253.7 cm/s TR Peak Gradient 25.8 mmHg Right Atrial Pressure 15.0 mmHg Pulmonary Artery Systolic Pressu 40.8 mmHg Right Ventricular Systolic Press 40.8 mmHg FINDINGS Left Ventricle Mildly impaired LV function was EF between 40-45% Right Ventricle Right ventricular dilatation. Right Atrium Normal right atrial size. Left Atrium Severe left atrial dilatation. Mitral Valve Mild mitral regurgitation. Aortic Valve Aortic stenosis. Tricuspid Valve Mild tricuspid regurgitation. Pulmonic Valve Pulmonic valve not well visualized. Pericardium Pericardial effusion. Aorta Normal size aortic root and proximal ascending aorta. CONCLUSIONS Mildly impaired LV function was EF between 40-45% Severe aortic stenosis. The mean gradient is 40 mmHg Previewed by: Dr. Sushil Petty MD (Electronically Signed) Final Date: 30 June 2022 11:45
--- NOTE | 2022-06-30 13:44 | P.PN ---
Subjective Progress Note Date: 06/30/22 Hospital course: Patient is a very pleasant 77-year-old female with a past medical history of COPD status post right lower lobe lobectomy secondary to recurrent obstructive pneumonia and concerns of possible lung cancer, breast cancer status post lumpectomy and radiation, colon cancer status post bowel resection, history of severe aortic stenosis, severe carotid stenosis, glaucoma, anemia of chronic disease with reported baseline hemoglobin of 8, and obstructive apnea CPAP dependent nightly. She presented to [facility] emergency department as a transfer from [facility] secondary to findings of pneumonia and pericardial effusion. Patient was admitted under our services with consultation to cardiology. Reviewed transfer packet and workup completed at [facility]. Labs: CBC reviewed revealing WBC count of 11.9, hemoglobin 10.4, and platelet count of 366. Lipase normal findings at 36. Troponin negative value at 0.02. Glucose 104. Renal function stable with BUN 20, creatinine 0.9, and GFR of > 60. CT abdomen and pelvis was completed showing posterior medial right lower lobe infiltrate suspicious for pneumonia reported to contain regions of high density suspicious for possible aspirated oral contrast or food, moderate pericardial effusion, cardiomegaly, distal colonic postsurgical changes, 3.2 cm rim calcified complex cyst in the right lower pole of the right kidney region likely benign. Chest x-ray report reviewed stating moderate perihilar infiltrates with right pleural effusion correlate for pneumonia versus pulmonary vascular congestion, moderate cardiomegaly with increased an apparent heart sides since previous exam and correlates with pericardial effusion reported on computed tomography scan. EKG completed at [facility] reviewed and upon personal interpretation showing normal sinus rhythm with frequent PVCs. Labs/imaging completed at [facility]: Labs: CBC was completed revealing microchromic anemia with hemoglobin of 7.5. BMP revealing sodium 135, BUN 28, creatinine 1.24, and GFR 42. Repeat troponin negative at less than 0.012. Influenza A, influenza B, RSV, and Covid PCR negative. EKG was completed showing sinus rhythm at [address] changes in inferior leads I, II, and aVF. Echocardiogram completed revealing an EF of 40-45% with severe aortic stenosis and a pericardial effusion present Physical exam: Patient seen and fully evaluated at bedside this morning, she was visiting with her daughter. Patient appeared to be resting comfortably showing no signs of acute distress. She remained on 2 L O2 via nasal cannula with SpO2 of 96% at time of assessment. Patient reports episode of chest pain overnight and reports resolved shortly after receiving a [place]. Cardiology following and making some medication changes this morning. Starting patient on bisoprolol. Echocardiogram was completed and reviewed. Sputum culture was obtained and currently pending results. Vital signs reviewed and stable. General: Nontoxic, no distress and appears stated age. Morbidly Obese. Derm: Skin warm and dry, normal coloration for ethnicity. Head: Atraumatic, normocephalic and symmetric. Eyes: EOMs intact, no lid lag, and anicteric sclera Mouth: no lip lesions, mucus membranes moist Cardiovascular: regular rate and rhythm with normal S1S2, stage IV systolic murmur, positive posterior tibial pulses bilaterally, and cap refill < 2 seconds. Lungs: Respirations even, regular, and unlabored on 2 L O2 via nasal cannula. Lungs slightly diminished. No ronchi, no rales, no wheezing, and no accessory muscle usage. Abdominal: soft, nontender to palpation, no guarding, no appreciable organomegaly Ext: ROM intact. No gross muscle atrophy, 1+ pitting bilateral lower extremity edema, no contractures Neuro: Speech clear, face symmetrical and CN II-XII grossly intact with no noted focal neuro deficits Psych: Alert and oriented to person, place, time, and situation. Appropriate and pleasant affect. Assessment and Plan of Care: Chest pain and shortness of breath Moderate pericardial effusion Right lower lobe pneumonia COPD status post right lower lobe lobectomy Severe aortic stenosis Severe carotid stenosis -Troponins reviewed and negative. -BNP reviewed and resulted at 1480. -Echocardiogram completed reviewed revealing an EF of 40-45% with severe aortic stenosis and a paracardial effusion present -EKG reviewed showing sinus mechanism with mild ST changes in inferior leads which appears to be changed when compared to EKG completed on 07/02/21 -Cardiology consulted, appreciate recommendations -Continue telemetry monitoring, discussed with RN no reports of arrhythmic events -Patient to continue to receive oxygen as needed to maintain SpO2 equal to or greater than 90%. Reviewed documentation in chart and patient has maintained SpO2 equal to or greater than 93% on 2 L O2 via nasal cannula since admission. -Continue Duonebs scheduled 4x daily and as needed for SOB and/or wheezing. -Incentive Spirometry at bedside and patient was encouraged on use 10-15 times hourly while awake -Continue Antibiotics: Azithromycin and Rocephin -Sputum culture was obtained, will follow-up on results once available. Anemia of chronic disease -Hemoglobin reviewed and stable at 9.1, no need for intervention at this time. -Patient denies any bleeding or bruising. Patient states her hemoglobin has not been over 8 in almost a year. -We will continue to order repeat CBC and monitor closely. Plan to transfuse as needed for hemoglobin less than 7. Obstructive sleep apnea CPAP dependent -Order placed for CPAP nightly and while napping History of breast cancer status post lumpectomy and radiation History of colon cancer status post bowel resection -Reported complex cyst noted on CT report of lower pole of right kidney, likely benign. However recommend follow-up with repeat outpatient imaging. 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 CODE STATUS: Full code DVT prophylaxis: Heparin Discussed with: Pt, patient's daughter and RN Anticipated discharge date: Clinical course to determine Anticipated discharge place: Home A total of 34 minutes was spent on the care of this complex patient more than 50% of the time was spent in counseling and care coordination. Objective - Vital Signs Vital signs: Vital Signs Temp 97.9 F 06/30/22 08:05 Pulse 60 06/30/22 08:33 Resp 16 06/30/22 08:05 BP 85/46 06/30/22 08:05 Pulse Ox 95 06/30/22 08:33 FiO2 Intake & Output 06/29/22 06/30/22 06/30/22 18:59 06:59 18:59 Weight 120.202 kg Other: Voiding Method External Catheter # Voids 1 - Labs CBC & Chem 7: 06/30/22 07:41 06/30/22 07:41 Labs: Abnormal Lab Results - Last 24 Hours (Table) 06/29/22 06/29/22 06/30/22 Range/Units 10:34 10:34 07:41 RBC 3.10 L (3.80-5.40) m/uL Hgb 7.5 L (11.4-16.0) gm/dL Hct 24.9 L (34.0-46.0) % MCH 24.2 L (25.0-35.0) pg MCHC 30.1 L (31.0-37.0) g/dL RDW 17.8 H (11.5-15.5) % Lymphocytes # 0.4 L (1.0-4.8) k/uL Sodium 135 L 136 L (137-145) mmol/L BUN 28 H 24 H (7-17) mg/dL Creatinine 1.24 H (0.52-1.04) mg/dL Glucose 161 H 106 H (74-99) mg/dL Albumin 3.4 L (3.5-5.0) g/dL Amylase <30 L (30-110) U/L Microbiology - Last 24 Hours (Table) 06/29/22 17:50 Sputum Culture - Preliminary Sputum
--- NOTE | 2022-06-30 14:20 | P.CRDCN ---
History of Present Illness Consult date: 06/30/22 History of present illness: History of present illness: This is a 77-year-old female patient of Dr. Petty with past medical history of aortic stenosis and carotid atherosclerosis, hypertension, hyperlipidemia, overweight, family history of CAD, history of tobacco use right lower lung resection for obstructive pneumonia and concern for possible lung cancer in 2016, obstructive sleep apnea. We've been asked to see the patient due to pericardial effusion. Patient states that she presented to [facility]. Patient presented due to shortness of breath and a sensation that she had pain in her abdomen that seemed to go up into her chest to her neck. She denies having any sweats, fever, chills, no lightheadedness or dizziness. CT of the abdomen and pelvis done at [place] revealed posterior medial right lower lobe infiltrate suspicious for pneumonia. Moderate pericardial effusion. Cardiomegaly. Distal colonic postsurgical changes. Complex cyst in the lower pole of the right kidney likely benign. She also states that she has palpitations and shortness of breath when she sitting. No lower extremity edema. Blood pressure is lobe small morning at 85/46. Patient states that she had a recent decrease in her losartan and is a low because of her low blood pressure. Abdominal/chest pain resolved with [place]. EKG sinus rhythm with no acute ST changes Telemetry: [facility] Cardiac catheterization 11/2021 revealed normal coronary angiogram. Elevated right-sided filling pressure. Moderate aortic stenosis with plan to monitor outpatient Echocardiogram 06/30/2022 revealed EF between 40 and 45% area and severe aortic stenosis with mean gradient 40 mmHg. (Small pericardial effusion). Home cardiac medications: Bisoprolol 5 mg daily, Bumex 1 mg daily losartan 25 mg daily, levothyroxine 200 g daily, rosuvastatin 5 mg daily Review Of Systems: At the time of my evaluation: Constitutional: No fever, no chills. No weakness, fatigue or lethargy. EENT: No headache. No dizziness. Lungs: Chronic shortness of breath, cough, no sputum production. No wheezing. Cardiovascular: No chest pain, no lower extremity edema. Occasional palpitations. No paroxysmal nocturnal dyspnea. No orthopnea. No lightheadedness or dizziness. No syncopal episodes. Abdominal: No abdominal pain. No nausea, vomiting. No diarrhea. No constipation. No bloody or tarry stools. Genitourinary: No dysuria.. No urinary retention. Musculoskeletal: No myalgias. No muscle weakness, no frequent falls. No back pain. No neck pain. Integumentary: No wounds. No rash. No unusual bruising. Neurologic: No aphasia. No facial droop. No change in mentation. No head injury. No headache. Psychiatric: No depression. No anxiety. Physical examination: Gen: This is a morbidly obese 77-year-old female. She is resting on the edge of the bed and appears to be comfortable at rest. VS: reviewed HEENT: Head is atraumatic, normocephalic. Pupils equal, round. Sclerae is anicteric. NECK: Supple. No JVD. Bilateral carotid bruit. LUNGS: Diminished bilaterally. No intercostal retractions. HEART: Regular rate and rhythm. Positive murmur at the right upper sternal border. ABDOMEN: Soft. Bowel sounds are present. No masses. No tenderness. EXTREMITIES: Trace bilateral pedal edema. NEUROLOGICAL: Patient is awake, alert and oriented x3. Assessment: Possible right lower lobe pneumonia on antibiotics Small pericardial effusion Moderate to severe aortic stenosis Abdominal pain radiating to her neck of unclear etiology Carotid atherosclerosis Hypertension Hyperlipidemia History of right lower lobe resection Obstructive sleep apnea Plan: Discontinue losartan due to hypotension Increase Bisoprolol to 7.5 mg daily Continue patient's other home cardiac medications Further recommendations to follow based upon clinical course Thank you kindly for this consultation. Nurse practitioner note has been reviewed, I agree with documented findings and plan of care. Patient was seen and examined. Past Medical History Past Medical History: Cancer, CVA/TIA, Eye Disorder, Hyperlipidemia, Hypertension, Thyroid Disorder Additional Past Medical History / Comment(s): LT breast CA, GLAUCOMA, DVT RT LEG YEARS AGO History of Any Multi-Drug Resistant Organisms: None Reported Past Surgical History: Bowel Resection, Orthopedic Surgery Additional Past Surgical History / Comment(s): colectomy, R lower lung removed, LT BREAST LUMPECTOMY, COLONOSCOPY, BILAT CATARACTS REMOVED WITH LENS IMPLANTS, Past Anesthesia/Blood Transfusion Reactions: Motion Sickness Past Psychological History: No Psychological Hx Reported Smoking Status: Former smoker Past Alcohol Use History: None Reported Additional Past Alcohol Use History / Comment(s): QUIT SMOKING-25= YEARS AGO Past Drug Use History: None Reported - Past Family History Mother Family Medical History: Cancer, Myocardial Infarction ([place]) Father Family Medical History: Diabetes Mellitus Sister(s) Family Medical History: Cancer Medications and Allergies Home Medications Medication Instructions Recorded Confirmed Type Latanoprost [Xalatan 0.005%] 1 drop BOTH EYES HS 09/12/16 06/29/22 History Meloxicam [Mobic] 15 mg PO DAILY 09/12/16 06/29/22 History Potassium Chloride ER [K-Dur 20] 20 meq PO DAILY 09/12/16 06/29/22 History allopurinoL [Zyloprim] 300 mg PO DAILY 09/12/16 06/29/22 History Albuterol Inhaler [Ventolin Hfa 2 puff INHALATION RT-Q6H PRN 07/02/21 06/29/22 History Inhaler] Anastrozole [Arimidex] 1 mg PO DAILY 07/02/21 06/29/22 History Codeine Phosphate/Guaifenesin 10 ml PO QID PRN 07/02/21 06/29/22 History [Guaiatussin AC Liquid] Mirabegron [Myrbetriq] 50 mg PO DAILY 07/02/21 06/29/22 History Fluticasone/Umeclidin/Vilanter 1 puff INHALATION RT-DAILY 12/17/21 06/29/22 History [Trelegy Ellipta 100-62.5-25] Betamethasone Dipropionate 1 applic TOPICAL BID PRN 06/29/22 06/29/22 History [Betamethasone Dipropionate 0.05%] Bisoprolol Fumarate 5 mg PO DAILY 06/29/22 06/29/22 History Bumetanide [Bumex] 1 mg PO DAILY 06/29/22 06/29/22 History HYDROcodone/APAP 5-325MG [[place] 1 tab PO Q4HR PRN 06/29/22 06/29/22 History 5-325] Levothyroxine Sodium 200 mcg PO AC-BRKFST 06/29/22 06/29/22 History Liquid Iron (Unknown Dose) 1 tsp PO DAILY 06/29/22 06/29/22 History Losartan Potassium [Cozaar] 25 mg PO DAILY 06/29/22 06/29/22 History Rosuvastatin Calcium 5 mg PO DAILY 06/29/22 06/29/22 History Allergies Allergy/AdvReac Type Severity Reaction Status Date / Time clindamycin Allergy Rash/Hives Verified 06/29/22 12:04 indomethacin Allergy Verified 06/29/22 12:04 Iodinated Contrast Media Allergy Rash/Hives/ Verified 06/29/22 12:04 [Iodinated Contrast Media - Itching Oral and] latex Allergy Rash/Hives/ Verified 06/29/22 12:04 Itching morphine Allergy Rash/Hives/ Verified 06/29/22 12:04 Itching shellfish derived [Shellfish] Allergy Rash/Hives/ Verified 06/29/22 12:04 Itching Physical Exam Vitals: Vital Signs Temp Pulse Pulse Resp BP BP Pulse Ox 06/30/22 04:00 98.5 F 67 16 109/46 94 L 06/29/22 23:52 98.7 F 61 17 114/73 93 L 06/29/22 20:00 98.9 F 88 18 101/54 94 L 06/29/22 19:46 80 06/29/22 19:24 76 06/29/22 16:30 97.7 F 88 20 108/60 98 06/29/22 15:38 76 06/29/22 15:30 75 28 H 101/65 99 06/29/22 15:26 78 06/29/22 15:00 81 24 101/75 98 06/29/22 14:30 75 24 98/64 99 06/29/22 14:00 74 18 89/57 98 06/29/22 13:30 76 16 92/54 99 06/29/22 13:00 75 18 99/54 98 06/29/22 12:30 80 22 100/62 97 06/29/22 12:09 79 18 100/62 95 06/29/22 12:00 79 18 92/56 98 06/29/22 11:30 79 17 97/55 97 06/29/22 11:00 84 20 91/52 97 06/29/22 10:30 77 20 90/59 95 06/29/22 10:00 79 16 90/52 94 L 06/29/22 09:30 80 18 90/55 94 L 06/29/22 09:15 97.9 F 80 20 90/55 94 L Intake and Output 06/29/22 06/30/22 06/30/22 22:59 06:59 14:59 Other: Voiding Method External Catheter # Voids 1 Weight 120.202 kg Results 06/30/22 07:41 06/30/22 07:41 Cardiac Enzymes 06/29/22 06/29/22 Range/Units 10:34 10:34 AST 18 (14-36) U/L Troponin I <0.012 (0.000-0.034) ng/mL CBC 06/29/22 Range/Units 10:34 WBC 8.8 (3.8-10.6) k/uL RBC 3.10 L (3.80-5.40) m/uL Hgb 7.5 L (11.4-16.0) gm/dL Hct 24.9 L (34.0-46.0) % Plt Count 159 (150-450) k/uL Comprehensive Metabolic Panel 06/29/22 Range/Units 10:34 Sodium 135 L (137-145) mmol/L Potassium 4.5 (3.5-5.1) mmol/L Chloride 102 (98-107) mmol/L Carbon Dioxide 25 (22-30) mmol/L BUN 28 H (7-17) mg/dL Creatinine 1.24 H (0.52-1.04) mg/dL Glucose 161 H (74-99) mg/dL Calcium 8.7 (8.4-10.2) mg/dL AST 18 (14-36) U/L ALT 17 (4-34) U/L Alkaline Phosphatase 65 (38-126) U/L Total Protein 6.3 (6.3-8.2) g/dL Albumin 3.4 L (3.5-5.0) g/dL Current Medications Generic Name Dose Route Start Last Admin Trade Name Freq PRN Reason Stop Dose Admin Hydrocodone Bitart/Acetaminophen 1 each 06/29/22 15:27 06/29/22 23:02 Hydrocodone/Apap 5-325mg 1 Each Tab PO 1 each Q4HR PRN Administration Pain Albuterol/Ipratropium 3 ml 06/29/22 14:49 Ipratropium-Albuterol 3 Ml Neb INHALATION RT-Q2H PRN Shortness Of Breath Or Wheezing Albuterol/Ipratropium 3 ml 06/29/22 16:00 06/29/22 19:23 Ipratropium-Albuterol 3 Ml Neb INHALATION 3 ml RT-QID AJAY Administration Allopurinol 300 mg 06/30/22 09:00 Allopurinol 300 Mg Tab PO DAILY [facility] Atorvastatin Calcium 10 mg 06/30/22 09:00 Atorvastatin 10 Mg Tab PO DAILY [facility] Bisoprolol Fumarate 5 mg 06/30/22 09:00 Bisoprolol 5 Mg Tab PO DAILY [facility] Budesonide/Formoterol Fumarate 2 puff 06/30/22 08:00 Symbicort 80-4.5 Mcg Inhaler INHALATION RT-BID [facility] Bumetanide 1 mg 06/30/22 09:00 Bumetanide 1 Mg Tab PO DAILY [facility] Ferrous Sulfate 300 mg 06/30/22 09:00 Ferrous Sulfate Oral Elixir 300 Mg/5 Ml Cup PO DAILY [facility] Heparin Sodium (Porcine) 5,000 unit 06/29/22 21:00 06/29/22 20:55 Heparin Sodium,Porcine/Pf 5,000 Unit/0.5 Ml Syringe SQ 5,000 unit Q12HR AJAY Administration Azithromycin 500 mg/ Sodium 250 mls @ 250 mls/hr 06/30/22 09:00 Chloride IVPB 07/01/22 09:59 DAILY [facility] Protocol Ceftriaxone Sodium 2 gm/ 50 mls @ 100 mls/hr 06/30/22 09:00 Sodium Chloride IVPB Q24HR [facility] Protocol Latanoprost 1 drops 06/29/22 21:00 06/29/22 20:56 Latanoprost 0.005% Ophth Drops 2.5 Ml Btl BOTH EYES 1 drops HS [facility] Administration Levothyroxine Sodium 200 mcg 06/30/22 07:30 06/30/22 06:54 Levothyroxine 100 Mcg Tab PO 200 mcg AC-BRKFST [facility] Administration Losartan Potassium 25 mg 06/30/22 09:00 Losartan 25 Mg Tab PO DAILY [facility] Naloxone HCl 0.2 mg 06/29/22 12:15 Naloxone 0.4 Mg/Ml 1 Ml Vial IV Q2M PRN Opioid Reversal Non-Formulary Medication 50 mg 06/30/22 09:00 Mirabegron [Myrbetriq] PO DAILY [facility] Intake and Output 06/29/22 06/30/22 06/30/22 22:59 06:59 14:59 Other: Voiding Method External Catheter # Voids 1 Weight 120.202 kg 06/29/22 10:34 06/29/22 10:34
[2022-06-30] MEDS: HYDROcodone/APAP 5-325MG 1 EACH TAB PO PRN (20:04)
[2022-06-30] MEDS: LATANOPROST 0.005% OPHTH DROPS 2.5 ML BTL BOTH EYES SCH (20:06)
[2022-07-01] MEDS ORDERED: ACETAMINOPHEN TAB 325 MG TAB PO PRN (00:04)
[2022-07-01] MEDS: LEVOTHYROXINE 100 MCG TAB PO SCH (06:25)
[2022-07-01] MEDS: SYMBICORT 80-4.5 MCG INHALER INHALATION SCH ×2 (08:45→19:38)
[2022-07-01] MEDS: IPRATROPIUM-ALBUTEROL 3 ML NEB INHALATION SCH ×4 (08:45→19:38)
[2022-07-01] MEDS: ATORVASTATIN 10 MG TAB PO SCH (09:40)
[2022-07-01] MEDS: BUMETANIDE 1 MG TAB PO SCH (09:40)
[2022-07-01] MEDS: allopurinoL 300 MG TAB PO SCH (09:40)
[2022-07-01] MEDS: FERROUS SULFATE ORAL ELIXIR 300 MG/5 ML CUP PO SCH (09:40)
[2022-07-01] MEDS: HEPARIN SODIUM,PORCINE/PF 5,000 UNIT/0.5 ML SYRINGE SQ SCH ×2 (09:45→20:54)
[2022-07-01] MEDS: NON FORMULARY DRUG (Mirabegron [Myrbetriq] 50 MG Tablet) PO SCH (09:49)
[2022-07-01] MEDS: BISOPROLOL 5 MG TAB PO SCH (10:37)
[2022-07-01] MEDS: AZITHROMYCIN 500 MG in SODIUM CHLORIDE 0.9% 250 ML IVPB SCH (11:00)
[2022-07-01] MEDS ORDERED: FUROSEMIDE 10 MG/ML 4 ML VIAL IV STA (11:07)
--- NOTE | 2022-07-01 11:14 | P.PN ---
Subjective Progress Note Date: 07/01/22 (delayed charting seen at 0845) Patient is a 77-year-old female with COPD status post right lower lobe lobectomy secondary to recurrent obstructive pneumonia and concerns of possible lung cancer, breast cancer status post lumpectomy and radiation, colon cancer status post bowel resection, history of severe aortic stenosis, severe carotid stenosis,and obstructive apnea CPAP dependent nightly who was transferred from [facility] due to pneumonia and pericardial effusion. At [place] she underwent an extensive evaluation. Labs were remarkable for WBC 11.[address] abdomen and pelvis demonstraed posterior medial right lower lobe infiltrate suspicious for pneumonia reported to contain regions of high density suspicious for possible aspirated oral contrast or food, moderate pericardial effusion, cardiomegaly, distal colonic postsurgical changes, 3.2 cm rim calcified complex cyst in the right lower pole of the right kidney region likely benign, and splenic granuloma. On arrival here labs were remarkable for hgb 7.5 and Cr 1.24. Influenza A, in fluenza B, RSV, and Covid PCR negative. Echocardiogram revealed an EF of 40-45% with severe aortic stenosis and a pericardial effusion. Cardiology was conuslted and recommended blood pressure medication changes. Patient seen and examined at bedside. She states that breathing is almost back to baseline. She does also report a hx of some swallowing difficultites. She is very unsure just about her oral hygiene after bronchodilators. She denies any nausea or vomiting. She denies any recurrent chest pain. General: nontoxic, no distress, appears at stated age, obese Derm: warm, dry Head: atraumatic, normocephalic, symmetric Eyes: EOMI, no lid lag, anicteric sclera Mouth: no lip lesion, mucus membranes moist Cardiovascular: S1S2 reg, no murmur, positive posterior tibial pulse bilateral, Lungs: Decreased breath sounds bilateral bilateral, no rhonchi, no rales , no accessory muscle use Abdominal: soft, nontender to palpation, no guarding, no appreciable organomegaly Ext: no gross muscle atrophy, 2+ edema, no contractures Neuro: CN II-XI grossly intact, no focal neuro deficits Psych: Alert, oriented, appropriate affect Assessment/plan: Right lower lobe pneumonia, recurrent COPD without acute exacerbation -Zithromax has been completed, continue with Rocephin for a total of 3 days. If patient does have signs or symptoms of aspiration would expect a seven-day treatment regimen due to her history of severe COPD and recurrent pneumonia requiring lobectomy. -Continue with bronchodilators -Sputum culture pending Dysphagia - consult speech therapy Cardiomyopathy with ejection fraction 40-45%, mild acute exacerbation of congestive heart failure Severe aortic stenosis Small pericardial effusion - continue with buymex oral add 1 dose of IV lasix -Continue with this propranolol, lisinopril is on hold secondary to low blood pressures -Cardiology recommendations -Blood pressures reviewed and are improved from prior. However patient does have some episodes of frequent PVCs including one episode of ventricular bigeminy. Beta alondra has already been increased by cardiology and lisinopril had been discontinued. Continue to monitor with telemetry. Right renal cyst -Outpatient follow-up, likely benign Obesity class III with BMI 51.8 -Outpatient structured weight loss [place], resolved Chronic: Severe carotid stenosis Obstructive sleep apnea History of breast cancer status post lumpectomy and radiation History of colon cancer status post bowel resection Hypothyroidism -No new labs today for review. We will repeat CBC, BMP, and magnesium in a.m given need for IV steroids today and pneumonia. DVT prophylaxis: Heparin Discussed with: Patient, nursing Anticipated discharge: in 1-[address]: home A total of 45 minutes was spent on the care of this complex patient more than 50% of the time was spent in counseling and care coordination. Active Medications Generic Name Dose Route Start Last Admin Trade Name Freq PRN Reason Stop Dose Admin Acetaminophen 650 mg 07/01/22 00:04 07/01/22 00:53 Acetaminophen Tab 325 Mg Tab PO 650 mg Q6HR PRN Administration Fever and/ or Pain Hydrocodone Bitart/Acetaminophen 1 each 06/29/22 15:27 06/30/22 20:04 Hydrocodone/Apap 5-325mg 1 Each Tab PO 1 each Q4HR PRN Administration Pain Albuterol/Ipratropium 3 ml 06/29/22 14:49 Ipratropium-Albuterol 3 Ml Neb INHALATION RT-Q2H PRN Shortness Of Breath Or Wheezing Albuterol/Ipratropium 3 ml 06/29/22 16:00 07/01/22 08:45 Ipratropium-Albuterol 3 Ml Neb INHALATION 3 ml RT-QID AJAY Administration Allopurinol 300 mg 06/30/22 09:00 07/01/22 09:40 Allopurinol 300 Mg Tab PO 300 mg DAILY AJAY Administration Atorvastatin Calcium 10 mg 06/30/22 09:00 07/01/22 09:40 Atorvastatin 10 Mg Tab PO 10 mg DAILY AJAY Administration Bisoprolol Fumarate 7.5 mg 07/01/22 09:00 07/01/22 10:37 Bisoprolol 5 Mg Tab PO 7.5 mg DAILY AJAY Administration Budesonide/Formoterol Fumarate 2 puff 06/30/22 08:00 07/01/22 08:45 Symbicort 80-4.5 Mcg Inhaler INHALATION 2 puff RT-BID AJAY Administration Bumetanide 1 mg 06/30/22 09:00 07/01/22 09:40 Bumetanide 1 Mg Tab PO 1 mg DAILY AJAY Administration Ferrous Sulfate 300 mg 06/30/22 09:00 07/01/22 09:40 Ferrous Sulfate Oral Elixir 300 Mg/5 Ml Cup PO 300 mg DAILY AJAY Administration Heparin Sodium (Porcine) 5,000 unit 06/29/22 21:00 07/01/22 09:45 Heparin Sodium,Porcine/Pf 5,000 Unit/0.5 Ml Syringe SQ 5,000 unit Q12HR AJAY Administration Ceftriaxone Sodium 2 gm/ 50 mls @ 100 mls/hr 06/30/22 09:00 07/01/22 09:25 Sodium Chloride IVPB 100 mls/hr Q24HR AJAY Administration Protocol Latanoprost 1 drops 06/29/22 21:00 06/30/22 20:06 Latanoprost 0.005% Ophth Drops 2.5 Ml Btl BOTH EYES 1 drops HS AJAY Administration Levothyroxine Sodium 200 mcg 06/30/22 07:30 07/01/22 06:25 Levothyroxine 100 Mcg Tab PO 200 mcg AC-BRKFST AJAY Administration Naloxone HCl 0.2 mg 06/29/22 12:15 Naloxone 0.4 Mg/Ml 1 Ml Vial IV Q2M PRN Opioid Reversal Non-Formulary Medication 50 mg 06/30/22 09:00 07/01/22 09:49 Mirabegron [Myrbetriq] PO Not Given DAILY AJAY Objective - Vital Signs Vital signs: Vital Signs Temp 98.4 F 07/01/22 08:00 Pulse 108 H 07/01/22 10:38 Resp 24 01/31/23 08:00 BP 117/59 07/01/22 08:00 Pulse Ox 98 07/01/22 08:46 FiO2 Intake & Output 06/30/22 07/01/22 07/01/22 18:59 06:59 18:59 Intake Total 540 Balance 540 Intake: Oral 540 Other: Voiding Method Toilet Bedside Commode # Voids 1 1 # Bowel Movements 1 - Labs CBC & Chem 7: 06/30/22 07:41 06/30/22 07:41 Labs: Microbiology - Last 24 Hours (Table) 06/29/22 17:50 Gram Stain - Final Sputum Sputum Culture - Final
--- NOTE | 2022-07-01 13:01 | CDI ---
Documentation Clarification Form Date: 07/01/2022 12:48:21 PM From: Deysi Davis RN CCDS Phone: [phone] Admit Date: 06/29/2022 12:16:00 PM Patient Name: Kylie Carrington Visit Number: [id number] Discharge Date: ATTENTION: The Clinical Documentation Specialists (CDI) and [facility] Coding Staff appreciate your assistance in clarifying documentation. Please respond to the clarification below the line at the bottom and electronically sign. The CDI & [facility] Coding staff will review the response and follow-up if needed. Please note: Queries are made part of the Legal Health Record. If you have any questions, please contact the author of this message via ITS. Dr. Lalita Nunez Your patient has the documented diagnosis of Cardiomyopathy with ejection fraction 40-45%, mild acute exacerbation of congestive heart failure, 07/01, Medicine note. Additional information regarding the type of CHF is requested. History/Risk Factors: 77-year old female presents as a transfer from [place] for pneumonia and pericardial effusion. Medical history: COPD, Severe aortic stenosis, severe carotid stenosis, Anemia, RAQUEL, Breast Cancer and Colon cancer. 06/29, H&P Clinical Indicators: VS/Pulse OX: B/P 90/55; HR 80; Temp 97.9F Oral; RR 20 ; SpO2 94% 2L nasal cannula BNP: 06/29 1480 Echocardiogram Results: 06/30 mildly impaired LV function was EF between 40-45%. Severe aortic stenosis. The mean gradient is 40mmHg Treatment: 06/30 Bumex mg po Daily; 07/01 Zebeta 7.5mg PO Daily In your professional opinion, can you please clarify the acuity and type of CHF if known? [ X] Acute Systolic Heart Failure (reduced EF) [ ] Acute on Chronic Systolic Heart Failure (reduced EF) [ ] Other, please specify [ ] Unable to determine (Template Last Revised: July 2020) MTDD
--- NOTE | 2022-07-01 14:07 | P.PN ---
Subjective Progress Note Date: 07/01/22 History of present illness: This is a 77-year-old female patient of Dr. Petty with past medical history of aortic stenosis and carotid atherosclerosis, hypertension, hyperlipidemia, overweight, family history of CAD, history of tobacco use right lower lung resection for obstructive pneumonia and concern for possible lung cancer in 2016, obstructive sleep apnea. We've been asked to see the patient due to pericardial effusion. Patient states that she presented to [facility]. Patient presented due to shortness of breath and a sensation that she had pain in her abdomen that seemed to go up into her chest to her neck. She denies having any sweats, fever, chills, no lightheadedness or dizziness. CT of the abdomen and pelvis done at [place] revealed posterior medial right lower lobe infiltrate suspicious for pneumonia. Moderate pericardial effusion. Cardiomegaly. Distal colonic postsurgical changes. Complex cyst in the lower pole of the right kidney likely benign. She also states that she has palpitations and shortness of breath when she sitting. No lower extremity edema . Blood pressure is lobe small morning at 85/46. Patient states that she had a recent decrease in her losartan and is a low because of her low blood pressure. Abdominal/chest pain resolved with [place]. EKG sinus rhythm with no acute ST changes Telemetry: [facility] Cardiac catheterization 11/2021 revealed normal coronary angiogram. Elevated right-sided filling pressure. Moderate aortic stenosis with plan to monitor outpatient Echocardiogram 06/30/2022 revealed EF between 40 and 45% area and severe aortic stenosis with mean gradient 40 mmHg. (Small pericardial effusion). Home cardiac medications: Bisoprolol 5 mg daily, Bumex 1 mg daily losartan 25 mg daily, levothyroxine 200 g daily, rosuvastatin 5 mg daily 07/01 BP improved from yesterday with readings Running around 116/56, heart rate is running between 60s and 108. Telemetry is showing PVC every fourth beat which is improved from yesterday with increased beta alondra. Patient states today she is feeling a lot better and thinks it's related to the antibiotics. She denies having any lightheadedness or dizziness. Discussed results of echocardiogram and she states that she was to be scheduled for [facility] with Dr. Petty in the near future. Hemoglobin 9.1, potassium 4.8, BUN 24 creatinine 0.96. ProBNP 1480. Physical examination: Gen: This is a morbidly obese 77-year-old female. She is sitting in a recliner and appears to be comfortable at rest. VS: reviewed HEENT: Head is atraumatic, normocephalic. Pupils equal, round. Sclerae is anicteric. NECK: Supple. No JVD. Bilateral carotid bruit. LUNGS: Diminished bilaterally. No intercostal retractions. HEART: Regular rate and rhythm. Positive murmur at the right upper sternal border. ABDOMEN: Soft. Bowel sounds are present. No masses. No tenderness. EXTREMITIES: Trace bilateral pedal edema. NEUROLOGICAL: Patient is awake, alert and oriented x3. Assessment: Possible right lower lobe pneumonia on antibiotics Small pericardial effusion Moderate to severe aortic stenosis Abdominal pain radiating to her neck of unclear etiology Bigeminy Carotid atherosclerosis Hypertension Hyperlipidemia History of right lower lobe resection Obstructive sleep apnea Plan: Continue to hold losartan Continue Increased dose of Bisoprolol 7.5 mg daily Continue patient's other home cardiac medications Patient will be scheduled for RINA tomorrow with Dr. Petty. Nurse practitioner note has been reviewed, I agree with documented findings and plan of care. Patient was seen and examined. Objective - Vital Signs Vital signs: Vital Signs Temp 98.4 F 07/01/22 08:00 Pulse 108 H 07/01/22 10:38 Resp 24 07/01/22 08:00 BP 117/59 07/01/22 08:00 Pulse Ox 98 07/01/22 08:46 FiO2 Intake & Output 06/30/22 07/01/22 07/01/22 18:59 06:59 18:59 Intake Total 540 Balance 540 Intake: Oral 540 Other: Voiding Method Toilet Bedside Commode # Voids 1 1 # Bowel Movements 1 - Labs CBC & Chem 7: 06/30/22 07:41 06/30/22 07:41 Labs: Microbiology - Last 24 Hours (Table) 06/29/22 17:50 Gram Stain - Final Sputum Sputum Culture - Final
[2022-07-01] MEDS: LATANOPROST 0.005% OPHTH DROPS 2.5 ML BTL BOTH EYES SCH (20:54)
[2022-07-02] MEDS: BISOPROLOL 5 MG TAB PO SCH (08:19)
[2022-07-02] MEDS: BUMETANIDE 1 MG TAB PO SCH (08:19)
[2022-07-02] MEDS: LEVOTHYROXINE 100 MCG TAB PO SCH (08:19)
[2022-07-02] MEDS: ATORVASTATIN 10 MG TAB PO SCH (08:19)
[2022-07-02] MEDS: allopurinoL 300 MG TAB PO SCH (08:19)
[2022-07-02] MEDS: FERROUS SULFATE ORAL ELIXIR 300 MG/5 ML CUP PO SCH (08:20)
[2022-07-02] MEDS: HEPARIN SODIUM,PORCINE/PF 5,000 UNIT/0.5 ML SYRINGE SQ SCH ×2 (08:20→20:27)
[2022-07-02] MEDS: NON FORMULARY DRUG (Mirabegron [Myrbetriq] 50 MG Tablet) PO SCH (08:21)
[2022-07-02] MEDS: IPRATROPIUM-ALBUTEROL 3 ML NEB INHALATION SCH ×4 (08:35→20:24)
[2022-07-02] MEDS: SYMBICORT 80-4.5 MCG INHALER INHALATION SCH ×2 (08:36→20:24)
[2022-07-02 09:48] LABS: Anisocytosis Slight; HCT 28.9 % (34.0-46.0); HGB 8.7 gm/dL (11.4-16.0); Hypochromasia Moderate; MCH 24.2 pg (25.0-35.0); MCHC 30.1 g/dL (31.0-37.0); MCV 80.6 fL (80.0-100.0); Mean Platelet Volume 7.4; Microcytosis Slight; Platelet Count 347 k/uL (150-450); RBC 3.58 m/uL (3.80-5.40); RDW 17.7 % (11.5-15.5); WBC 5.8 k/uL (3.8-10.6)
[2022-07-02 09:50] LABS: African American GFR (CKD) >90 (>60 ml/min/1.73 sqM); Anion Gap 5 mmol/L; Blood Urea Nitrogen 18 mg/dL (7-17); Carbon Dioxide 30 mmol/L (22-30); Chloride 104 mmol/L (98-107); Glucose 113 mg/dL (74-99); Magnesium 1.9 mg/dL (1.6-2.3); Non-African American GFR(CKD) 84 (>60 ml/min/1.73 sqM); Potassium 3.9 mmol/L (3.5-5.1); Sodium 139 mmol/L (137-145)
[2022-07-02] MEDS ORDERED: fentaNYL (PF) 50 MCG/ML 2 ML AMP ONE (10:48)
[2022-07-02] MEDS ORDERED: SODIUM CHLORIDE 0.9% 1,000 ML IV ONE (11:00)
[2022-07-02] MEDS: BENZOCAINE SPRAY 1 CAN MUCOUS MEM ONE ×2 (11:02→11:10)
[2022-07-02] MEDS ORDERED: MIDAZOLAM 2 MG/2 ML VIAL IV ONE (11:10)
[2022-07-02] MEDS ORDERED: fentaNYL (PF) 50 MCG/ML 2 ML AMP IV ONE (11:10)
[2022-07-02] MEDS: MIDAZOLAM 2 MG/2 ML VIAL IV ONE ×2 (11:13→11:16)
--- NOTE | 2022-07-02 12:07 | P.PN ---
Subjective Progress Note Date: 07/02/22 History of present illness: This is a 77-year-old female patient of Dr. Petty with past medical history of aortic stenosis and carotid atherosclerosis, hypertension, hyperlipidemia, overweight, family history of CAD, history of tobacco use right lower lung resection for obstructive pneumonia and concern for possible lung cancer in 2016, obstructive sleep apnea. We've been asked to see the patient due to pericardial effusion. Patient states that she presented to [facility]. Patient presented due to shortness of breath and a sensation that she had pain in her abdomen that seemed to go up into her chest to her neck. She denies having any sweats, fever, chills, no lightheadedness or dizziness. CT of the abdomen and pelvis done at [place] revealed posterior medial right lower lobe infiltrate suspicious for pneumonia. Moderate pericardial effusion. Cardiomegaly. Distal colonic postsurgical changes. Complex cyst in the lower pole of the right kidney likely benign. She also states that she has palpitations and shortness of breath when she sitting. No lower extremity edema . Blood pressure is lobe small morning at 85/46. Patient states that she had a recent decrease in her losartan and is a low because of her low blood pressure. Abdominal/chest pain resolved with [place]. EKG sinus rhythm with no acute ST changes Telemetry: [facility] Cardiac catheterization 11/2021 revealed normal coronary angiogram. Elevated right-sided filling pressure. Moderate aortic stenosis with plan to monitor outpatient Echocardiogram 06/30/2022 revealed EF between 40 and 45% area and severe aortic stenosis with mean gradient 40 mmHg. (Small pericardial effusion). Home cardiac medications: Bisoprolol 5 mg daily, Bumex 1 mg daily losartan 25 mg daily, levothyroxine 200 g daily, rosuvastatin 5 mg daily 07/01 BP improved from yesterday with readings Running around 116/56, heart rate is running between 60s and 108. Telemetry is showing PVC every fourth beat which is improved from yesterday with increased beta alondra. Patient states today she is feeling a lot better and thinks it's related to the antibiotics. She denies having any lightheadedness or dizziness. Discussed results of echocardiogram and she states that she was to be scheduled for RINA with Dr. Petty in the near future. Hemoglobin 9.1, potassium 4.8, BUN 24 creatinine 0.96. ProBNP 1480. 2/ Patient is scheduled for RINA today which has been delayed. Patient states in general she is feeling much better each day. Repeat blood work reveals hemoglobin of 8.7. Potassium 3.9, BUN 18 and creatinine 0.69. Heart rate has been in the 80s and low 90s, blood pressure 131/63, pulse ox 96% on 2 L nasal cannula. 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 Physical examination: Gen: This is a morbidly obese 77-year-old female. She is sitting in a recliner and appears to be comfortable at rest. VS: reviewed HEENT: Head is atraumatic, normocephalic. Pupils equal, round. Sclerae is anicteric. NECK: Supple. No JVD. Bilateral carotid bruit. LUNGS: Diminished bilaterally. No intercostal retractions. HEART: Regular rate and rhythm. Positive murmur at the right upper sternal border. ABDOMEN: Soft. Bowel sounds are present. No masses. No tenderness. EXTREMITIES: Trace bilateral pedal edema. NEUROLOGICAL: Patient is awake, alert and oriented x3. Assessment: Possible right lower lobe pneumonia on antibiotics Small pericardial effusion Moderate to severe aortic stenosis Abdominal pain radiating to her neck of unclear etiology [place] Carotid atherosclerosis Hypertension Hyperlipidemia History of right lower lobe resection Obstructive sleep apnea Plan: Continue to hold losartan Continue Increased dose of Bisoprolol 7.5 mg daily Continue patient's other home cardiac medications Patient is scheduled for RINA with Dr. Petty. Nurse practitioner note has been reviewed, I agree with documented findings and plan of care. Patient was seen and examined. Objective - Vital Signs Vital signs: Vital Signs Temp 97.8 F 07/02/22 07:52 Pulse 76 07/02/22 08:50 Resp 18 07/02/22 07:52 BP 119/69 07/02/22 07:52 Pulse Ox 97 07/02/22 08:50 FiO2 Intake & Output 07/01/22 07/02/22 07/02/22 18:59 06:59 18:59 Intake Total 1480 Balance 1480 Intake: Oral 1480 Other: Voiding Method Toilet Toilet # Voids 3 2 # Bowel Movements 1 - Labs CBC & Chem 7: 07/02/22 08:42 07/02/22 08:42 Labs: Microbiology - Last 24 Hours (Table) 06/29/22 17:50 Gram Stain - Final Sputum Sputum Culture - Final
[2022-07-02] MEDS ORDERED: BUMETANIDE 1 MG TAB PO ONE (12:30)
--- NOTE | 2022-07-02 13:12 | P.PCN ---
Date of Procedure: 07/02/22 Operative Findings: TRANSESOPHAGEAL ECHOCARDIOGRAM LICENSING DIRECTOR: OTTONIEL SUAREZ MD, RPVI INDICATION: Aortic stenosis SEDATION: Conscious sedation COMPLICATION: None LEVEL OF SEDATION Moderate to severe in length of 15 minutes PROCEDURE DESCRIPTION: After obtaining an informed consent, the patient was brought to transesophageal echocardiogram room. Pulse oximetry and heart monitors were attached to the patient. The patient throat was sprayed using lidocaine. The patient was turned into left lateral position. After that a bite guard was placed. After an appropriate conscious sedation was initiated, the transesophageal echocardiogram was advanced through a bite guard into the mid esophagus. A 2-D echocardiogram images, color Doppler images, continuous wave images, pulse-wave images, of various cardiac structure were performed. After that the transesophageal echocardiogram probe was advanced into the stomach and fixed to obtain transgastric view was. The probe was brought into the mid esophagus. Inter-atrial septum was interrogated using 2D images, color Doppler images, and then contrast study. After that transesophageal echocardiogram was withdrawn out and upon withdrawing the descending thoracic aorta all the way up to the arch was evaluated. FINDING: The left ventricular dimension and systolic function appeared to be within normal limits. Ejection fraction appears to be in the range of 55-60%. There is mild concentric LVH. The right ventricle appeared to be of normal size and function. Severe biatrial enlargement was identified. The left atrial appendage appeared to be free from any thrombus. The aortic valve appeared to be sclerotic with evidence of severe aortic stenosis with a peak gradient of 85 and mean gradient of 54 mmHg the mitral valve seems to be thickened as well as was evidence of moderate mitral regurgitation be there is moderate tricuspid regurgitation was identified. Small circumferential pericardial effusion was seen as well. CONCLUSION: 1. Aortic sclerosis with evidence of severe aortic stenosis and mean gradient of 54 mmHg. His heart to tell if the valve is bicuspid or tricuspid 2. Thickened anterior and posterior mitral leaflet with moderate mitral regurgitation 3. Normal biventricular dimension and systolic function 4. Severe biatrial enlargement 5. Pulse circumferential pericardial effusion
--- NOTE | 2022-07-02 13:34 | P.PN ---
Subjective Progress Note Date: 07/02/22 Patient is a 77-year-old female with COPD status post right lower lobe lobectomy secondary to recurrent obstructive pneumonia and concerns of possible lung cancer, breast cancer status post lumpectomy and radiation, colon cancer status post bowel resection, history of severe aortic stenosis, severe carotid stenosis,and obstructive apnea CPAP dependent nightly who was transferred from [facility] due to pneumonia and pericardial effusion. At [place] she underwent an extensive evaluation. Labs were remarkable for WBC 11.[address] abdomen and pelvis demonstraed posterior medial right lower lobe infiltrate suspicious for pneumonia reported to contain regions of high density suspicious for possible aspirated oral contrast or food, moderate pericardial effusion, cardiomegaly, distal colonic postsurgical changes, 3.2 cm rim calcified complex cyst in the right lower pole of the right kidney region likely benign, and splenic granuloma. On arrival here labs were remarkable for hgb 7.5 and Cr 1.24. Influenza A, influenza B, RSV, and Covid PCR negative. Echocardiogram revealed an EF of 40- 45% with severe aortic stenosis and a pericardial effusion. Cardiology was conuslted and recommended blood pressure medication changes. Patient seen and examined at bedside. She is still short of breath but back to near her baseline. No chest pain, Still with some edema. Has been on bumex 2mg daily prior but it was reduced to 1 mg some time ago. Daughter at bedside. All questions answered. General: nontoxic, no distress, appears at stated age, obese Derm: warm, dry Head: atraumatic, normocephalic, symmetric Eyes: EOMI, no lid lag, anicteric sclera Mouth: no lip lesion, mucus membranes moist Cardiovascular: S1S2 reg, no murmur, positive posterior tibial pulse bilateral, Lungs: Decreased breath sounds bilateral, no rhonchi, no rales , no accessory muscle use Ext: no gross muscle atrophy, 2+ edema, no contractures Neuro: CN II-XI grossly intact, no focal neuro deficits Psych: Alert, oriented, appropriate affect Assessment/plan: Right lower lobe pneumonia, recurrent COPD without acute exacerbation -Zithromax has been completed, continue with Rocephin D#3 for a total of 7 days of antibiotics due to her history of severe COPD and recurrent pneumonia requiring lobectomy. -Continue with bronchodilators -Sputum culture cam back as normal [place]. Dysphagia - await modified lauren swallow. Cardiomyopathy with ejection fraction 40-45%, mild acute exacerbation of systolic congestive heart failure Severe aortic stenosis Small pericardial effusion - Increase oral bumex to 1 mg twice daily. Cr and Mg are in acceptable range will repeat tomorrow with increased dosing to monitor for hypokalemia/hypomagnesemia/rehana -Continue with Bisoprolol 7.5 mg BID, lisinopril discontinued secondary to low blood pressures -Cardiology recommendations: RINA done 07/02/22 with severe aortic stenosis Right renal cyst -Outpatient follow-up, likely benign Obesity class III with BMI 51.8 -Outpatient structured weight loss REHANA, resolved Chronic: Severe carotid stenosis Obstructive sleep apnea History of breast cancer status post lumpectomy and radiation History of colon cancer status post bowel resection Hypothyroidism - CBC, BMP, and magnesium reviewed DVT prophylaxis: Heparin Discussed with: Patient, nursing Anticipated discharge: in AM Anticipated discharge place: SNF A total of 35 minutes was spent on the care of this complex patient more than 50% of the time was spent in counseling and care coordination. Active Medications Generic Name Dose Route Start Last Admin Trade Name Freq PRN Reason Stop Dose Admin Acetaminophen 650 mg 07/01/22 00:04 07/01/22 00:53 Acetaminophen Tab 325 Mg Tab PO 650 mg Q6HR PRN Administration Fever and/ or Pain Hydrocodone Bitart/Acetaminophen 1 each 06/29/22 15:27 06/30/22 20:04 Hydrocodone/Apap 5-325mg 1 Each Tab PO 1 each Q4HR PRN Administration Pain Albuterol/Ipratropium 3 ml 06/29/22 14:49 Ipratropium-Albuterol 3 Ml Neb INHALATION RT-Q2H PRN Shortness Of Breath Or Wheezing Albuterol/Ipratropium 3 ml 06/29/22 16:00 07/02/22 11:29 Ipratropium-Albuterol 3 Ml Neb INHALATION Not Given RT-QID AJAY Allopurinol 300 mg 06/30/22 09:00 07/02/22 08:19 Allopurinol 300 Mg Tab PO 300 mg DAILY AJAY Administration Atorvastatin Calcium 10 mg 06/30/22 09:00 07/02/22 08:19 Atorvastatin 10 Mg Tab PO 10 mg DAILY AJAY Administration Bisoprolol Fumarate 7.5 mg 07/01/22 09:00 07/02/22 08:19 Bisoprolol 5 Mg Tab PO 7.5 mg DAILY AJAY Administration Budesonide/Formoterol Fumarate 2 puff 06/30/22 08:00 07/02/22 08:36 Symbicort 80-4.5 Mcg Inhaler INHALATION 2 puff RT-BID AJAY Administration Bumetanide 1 mg 07/03/22 09:00 Bumetanide 1 Mg Tab PO BID@0900,1600 [facility] Ferrous Sulfate 300 mg 06/30/22 09:00 07/02/22 08:20 Ferrous Sulfate Oral Elixir 300 Mg/5 Ml Cup PO 300 mg DAILY AJAY Administration Heparin Sodium (Porcine) 5,000 unit 06/29/22 21:00 07/02/22 08:20 Heparin Sodium,Porcine/Pf 5,000 Unit/0.5 Ml Syringe SQ 5,000 unit Q12HR AJAY Administration Ceftriaxone Sodium 2 gm/ 50 mls @ 100 mls/hr 06/30/22 09:00 07/02/22 08:20 Sodium Chloride IVPB 100 mls/hr Q24HR AJAY Administration Protocol Latanoprost 1 drops 06/29/22 21:00 07/01/22 20:54 Latanoprost 0.005% Ophth Drops 2.5 Ml Btl BOTH EYES 1 drops HS AJAY Administration Levothyroxine Sodium 200 mcg 06/30/22 07:30 07/02/22 08:19 Levothyroxine 100 Mcg Tab PO 200 mcg AC-BRKFST AJAY Administration Naloxone HCl 0.2 mg 06/29/22 12:15 Naloxone 0.4 Mg/Ml 1 Ml Vial IV Q2M PRN Opioid Reversal Non-Formulary Medication 50 mg 06/30/22 09:00 07/02/22 08:21 Mirabegron [Myrbetriq] PO Not Given DAILY [facility] Objective - Vital Signs Vital signs: Vital Signs Temp 97.8 F 07/02/22 07:52 Pulse 85 07/02/22 11:31 Resp 18 07/02/22 11:31 BP 131/63 07/02/22 11:31 Pulse Ox 96 07/02/22 11:31 FiO2 Intake & Output 07/01/22 07/02/22 07/02/22 18:59 06:59 18:59 Intake Total 1480 50 Balance 1480 50 Intake: IV 50 Oral 1480 Other: Voiding Method Toilet Toilet # Voids 3 2 # Bowel Movements 1 - Labs CBC & Chem 7: 07/02/22 08:42 07/02/22 08:42 Labs: Abnormal Lab Results - Last 24 Hours (Table) 07/02/22 07/02/22 Range/Units 08:42 08:42 RBC 3.58 L (3.80-5.40) m/uL Hgb 8.7 L (11.4-16.0) gm/dL Hct 28.9 L (34.0-46.0) % MCH 24.2 L (25.0-35.0) pg MCHC 30.1 L (31.0-37.0) g/dL RDW 17.7 H (11.5-15.5) % BUN 18 H (7-17) mg/dL Glucose 113 H (74-99) mg/dL Microbiology - Last 24 Hours (Table) 06/29/22 17:50 Gram Stain - Final Sputum Sputum Culture - Final
[2022-07-02] MEDS: HYDROcodone/APAP 5-325MG 1 EACH TAB PO PRN (15:49)
--- NOTE | 2022-07-02 15:57 | FL ---
Exam Date: 07/02/2022 3:49 PM. Modified barium swallow for dysphagia. Consistencies administered: Various consistency of barium. Fluoro time: 1 minute 11 seconds No images were sent to PACS. Please see speech pathology report.
[2022-07-02] MEDS: LATANOPROST 0.005% OPHTH DROPS 2.5 ML BTL BOTH EYES SCH (20:27)
[2022-07-02] MEDS ORDERED: guaiFENesin SYRUP 100MG/5ML 200 MG/10 ML CUP PO PRN (22:20)
[2022-07-03] MEDS: LEVOTHYROXINE 100 MCG TAB PO SCH (06:00)
[2022-07-03] MEDS: IPRATROPIUM-ALBUTEROL 3 ML NEB INHALATION SCH (08:05)
[2022-07-03] MEDS: SYMBICORT 80-4.5 MCG INHALER INHALATION SCH (08:16)
[2022-07-03] MEDS ORDERED: NYSTATIN 100,000 UNIT/ML SUSP 500,000 UNIT/5 ML CUP PO SCH (09:00)
[2022-07-03] MEDS ORDERED: BUMETANIDE 1 MG TAB PO SCH (09:00)
[2022-07-03 09:03] LABS: African American GFR (CKD) >90 (>60 ml/min/1.73 sqM); Anion Gap 3 mmol/L; Blood Urea Nitrogen 16 mg/dL (7-17); Calcium 9.1 mg/dL (8.4-10.2); Carbon Dioxide 34 mmol/L (22-30); Chloride 102 mmol/L (98-107); Glucose 123 mg/dL (74-99); Magnesium 1.8 mg/dL (1.6-2.3); Non-African American GFR(CKD) 85 (>60 ml/min/1.73 sqM); Potassium 3.9 mmol/L (3.5-5.1); Sodium 139 mmol/L (137-145)
[2022-07-03] MEDS ORDERED: MAGNESIUM OXIDE 400 MG TAB PO STA (09:05)
--- NOTE | 2022-07-03 09:14 | P.DS ---
Providers Date of admission: 06/29/22 12:16 Expected date of discharge: 07/03/22 Attending physician: Noé Manuel MD Consults: 06/29/22 12:15 Consult Physician Routine Consulting Provider: [facility] Consult Reason/Comments: pericardial effusion Do you want consulting provider notified?: Yes Primary care physician: Tommy Bui MD Hospital Course: Discharge Diagnosis: Right lower lobe pneumonia, recurrent COPD without acute exacerbation Cardiomyopathy with ejection fraction 40-45%, mild acute exacerbation of systolic congestive heart failure Severe aortic stenosis Small pericardial effusion Right renal cyst Obesity class III with BMI 51.8 REHANA, resolved Severe carotid stenosis Obstructive sleep apnea History of breast cancer status post lumpectomy and radiation History of colon cancer status post bowel resection Hypothyroidism Hospital Course: Patient is a 77-year-old female with COPD status post right lower lobe lobectomy secondary to recurrent obstructive pneumonia and concerns of possible lung cancer, breast cancer status post lumpectomy and radiation, colon cancer status post bowel resection, history of severe aortic stenosis, severe carotid stenosis,and obstructive apnea CPAP dependent nightly who was transferred from [facility] due to pneumonia and pericardial effusion. At [place] she underwent an extensive evaluation. Labs were remarkable for WBC 11.[address] abdomen and pelvis demonstrated posterior medial right lower lobe infiltrate suspicious for pneumonia reported to contain regions of high density suspicious for possible aspirated oral contrast or food, moderate pericardial effusion, cardiomegally, distal colonic postsurgical changes, 3.2 cm rim calcified complex cyst in the right lower pole of the right kidney region likely benign, and splenic granuloma. On arrival here labs were remarkable for hgb 7.5 and Cr 1.24. Influenza A, influenza B, RSV, and Covid PCR negative. Echocardiogram revealed an EF of 40- 45% with severe aortic stenosis and a pericardial effusion. Cardiology was conuslted and recommended blood pressure medication changes. Her breathing continued to improve. She had a RINA completed which showed Severe aortic stenosis. She was complaining of some dysphagia and was seen by speech and had a modified barium swallow preformed which was normal. She was much improved and was determined stable for discharge. Follow-up:Omnicef for 3 more days, follow-up renal ultrasound in [address] Jovanny carrillo in 2-4 weeks, Bumex was increased to twice daily from once daily will need to monitor BP and Cr closely BMP in 2-3 days. Nystatin swish and swallow for 14 days Patient seen and examined at bedside. She states her breathing is better. She does think she is having a slight amount of thrush. Denies any nausea or vomiting. Lower extremity edema slightly improved. Vital signs reviewed and stable. General: nontoxic, no distress, appears at stated age Derm: warm, dry Head: atraumatic, normocephalic, symmetric Eyes: EOMI, no lid lag, anicteric sclera Mouth: no lip lesion, mucus membranes moist Cardiovascular: S1S2 reg, no murmur, positive posterior tibial pulse bilateral, Lungs: Course bs bilateral, no rhonchi, no rales , no accessory muscle use Abdominal: soft, nontender to palpation, no guarding, no appreciable organomegaly Ext: no gross muscle atrophy, 2+ edema, no contractures Neuro: CN II-XI grossly intact, no focal neuro deficits Psych: Alert, oriented, appropriate affect A total of 42 minutes of time were spent preparing this complex discharge summary. Patient was discharged on 07/03/22. Patient Condition at Discharge: Stable Plan - Discharge Summary Discharge Rx Participant: No New Discharge Prescriptions: New Bumetanide [BUMEX] 1 mg PO BID@0900,1600 tab Ipratropium-Albuterol Nebulize [Duoneb 0.5 mg-3 mg/3 ml Soln] 3 ml INHALATION RT-Q2H PRN each PRN Reason: Shortness Of Breath Or Wheezing Nystatin 100,000 Unit/ml Susp [Mycostatin Oral Susp] 500,000 unit PO QID 14 Days #2500 ml Ipratropium-Albuterol Nebulize [Duoneb 0.5 mg-3 mg/3 ml Soln] 3 ml INHALATION RT-QID each guaiFENesin SYRUP 100MG/5ML [Robitussin] 200 mg PO Q6HR PRN ml PRN Reason: Cough Bisoprolol [Zebeta] 7.5 mg PO DAILY tab Cefdinir [Omnicef] 300 mg PO Q12HR #6 capsule Continue Potassium Chloride ER [K-Dur 20] 20 meq PO DAILY Meloxicam [Mobic] 15 mg PO DAILY Latanoprost [Xalatan 0.005%] 1 drop BOTH EYES HS allopurinoL [Zyloprim] 300 mg PO DAILY Anastrozole [Arimidex] 1 mg PO DAILY Albuterol Inhaler [Ventolin Hfa Inhaler] 2 puff INHALATION RT-Q6H PRN PRN Reason: Shortness Of Breath Levothyroxine Sodium 200 mcg PO AC-BRKFST Betamethasone Dipropionate [Betamethasone Dipropionate 0.05%] 1 applic TOPICAL BID PRN PRN Reason: Psoriasis Liquid Iron (Unknown Dose) 1 tsp PO DAILY Mirabegron [Myrbetriq] 50 mg PO DAILY Fluticasone/Umeclidin/Vilanter [Trelegy Ellipta 100-62.5-25] 1 puff INHALATION RT-DAILY Rosuvastatin Calcium 5 mg PO DAILY HYDROcodone/APAP 5-325MG [O'Brien 5-325] 1 tab PO Q4HR PRN #18 tab PRN Reason: Pain Discontinued Codeine Phosphate/Guaifenesin [Guaiatussin AC Liquid] 10 ml PO QID PRN PRN Reason: Cough Bumetanide [Bumex] 1 mg PO DAILY Bisoprolol Fumarate 5 mg PO DAILY Losartan Potassium [Cozaar] 25 mg PO DAILY Discharge Medication List Latanoprost [Xalatan 0.005%] 1 drop BOTH EYES HS 09/12/16 [History] Meloxicam [Mobic] 15 mg PO DAILY 09/12/16 [History] Potassium Chloride ER [K-Dur 20] 20 meq PO DAILY 09/12/16 [History] allopurinoL [Zyloprim] 300 mg PO DAILY 09/12/16 [History] Albuterol Inhaler [Ventolin Hfa Inhaler] 2 puff INHALATION RT-Q6H PRN 07/02/21 [History] Anastrozole [Arimidex] 1 mg PO DAILY 07/02/21 [History] Mirabegron [Myrbetriq] 50 mg PO DAILY 07/02/21 [History] Fluticasone/Umeclidin/Vilanter [Trelegy Ellipta 100-62.5-25] 1 puff INHALATION RT-DAILY 12/17/21 [History] Betamethasone Dipropionate [Betamethasone Dipropionate 0.05%] 1 applic TOPICAL BID PRN 06/29/22 [History] Levothyroxine Sodium 200 mcg PO AC-BRKFST 06/29/22 [History] Liquid Iron (Unknown Dose) 1 tsp PO DAILY 06/29/22 [History] Rosuvastatin Calcium 5 mg PO DAILY 06/29/22 [History] Bisoprolol [Zebeta] 7.5 mg PO DAILY tab 07/03/22 [Rx] Bumetanide [BUMEX] 1 mg PO BID@0900,1600 tab 07/03/22 [Rx] Cefdinir [Omnicef] 300 mg PO Q12HR #6 capsule 07/03/22 [Rx] HYDROcodone/APAP 5-325MG [O'Brien 5-325] 1 tab PO Q4HR PRN #18 tab 07/03/22 [Rx] Ipratropium-Albuterol Nebulize [Duoneb 0.5 mg-3 mg/3 ml Soln] 3 ml INHALATION RT-Q2H PRN each 07/03/22 [Rx] Ipratropium-Albuterol Nebulize [Duoneb 0.5 mg-3 mg/3 ml Soln] 3 ml INHALATION RT-QID each 07/03/22 [Rx] Nystatin 100,000 Unit/ml Susp [Mycostatin Oral Susp] 500,000 unit PO QID 14 Days #2500 ml 07/03/22 [Rx] guaiFENesin SYRUP 100MG/5ML [Robitussin] 200 mg PO Q6HR PRN ml 07/03/22 [Rx] Follow up Appointment(s)/Referral(s): Tommy Bui MD [Primary Care Provider] - 1-2 days Sushil Petty MD [STAFF PHYSICIAN] - 1 Week Activity/Diet/Wound Care/Special Instructions: Activity: as tolerated Diet: heart healthy 2 gram sodium, 1800 mL fluid restriction Special Instructions: BMP in 3 days DX: hypomagnesemia Discharge Disposition: TRANSFER TO SNF/ECF
[2022-07-03] MEDS: BISOPROLOL 5 MG TAB PO SCH (09:57)
[2022-07-03] MEDS: FERROUS SULFATE ORAL ELIXIR 300 MG/5 ML CUP PO SCH (09:57)
[2022-07-03] MEDS: HEPARIN SODIUM,PORCINE/PF 5,000 UNIT/0.5 ML SYRINGE SQ SCH (09:57)
[2022-07-03] MEDS: ATORVASTATIN 10 MG TAB PO SCH (09:57)
[2022-07-03] MEDS: allopurinoL 300 MG TAB PO SCH (09:57)
[2022-07-03] MEDS: NON FORMULARY DRUG (Mirabegron [Myrbetriq] 50 MG Tablet) PO SCH (10:22)
[2022-07-03 11:00] VITALS: BP 114/56; PULSE 85; RESP 16; TEMP 97.4
--- NOTE | 2022-07-03 11:18 | P.PN ---
Subjective Progress Note Date: 07/03/22 History of present illness: This is a 77-year-old female patient of Dr. Petty with past medical history of aortic stenosis and carotid atherosclerosis, hypertension, hyperlipidemia, overweight, family history of CAD, history of tobacco use right lower lung resection for obstructive pneumonia and concern for possible lung cancer in 2016, obstructive sleep apnea. We've been asked to see the patient due to pericardial effusion. Patient states that she presented to [facility]. Patient presented due to shortness of breath and a sensation that she had pain in her abdomen that seemed to go up into her chest to her neck. She denies having any sweats, fever, chills, no lightheadedness or dizziness. CT of the abdomen and pelvis done at [place] revealed posterior medial right lower lobe infiltrate suspicious for pneumonia. Moderate pericardial effusion. Cardiomegaly. Distal colonic postsurgical changes. Complex cyst in the lower pole of the right kidney likely benign. She also states that she has palpitations and shortness of breath when she sitting. No lower extremity edema . Blood pressure is lobe small morning at 85/46. Patient states that she had a recent decrease in her losartan and is a low because of her low blood pressure. Abdominal/chest pain resolved with [place]. EKG sinus rhythm with no acute ST changes Telemetry: [facility] Cardiac catheterization 11/2021 revealed normal coronary angiogram. Elevated right-sided filling pressure. Moderate aortic stenosis with plan to monitor outpatient Echocardiogram 06/30/2022 revealed EF between 40 and 45% area and severe aortic stenosis with mean gradient 40 mmHg. (Small pericardial effusion). Home cardiac medications: Bisoprolol 5 mg daily, Bumex 1 mg daily losartan 25 mg daily, levothyroxine 200 g daily, rosuvastatin 5 mg daily 07/01 BP improved from yesterday with readings Running around 116/56, heart rate is running between 60s and 108. Telemetry is showing PVC every fourth beat which is improved from yesterday with increased beta alondra. Patient states today she is feeling a lot better and thinks it's related to the antibiotics. She denies having any lightheadedness or dizziness. Discussed results of echocardiogram and she states that she was to be scheduled for RINA with Dr. Petty in the near future. Hemoglobin 9.1, potassium 4.8, BUN 24 creatinine 0.96. ProBNP 1480. 2/ Patient is scheduled for RINA today which has been delayed. Patient states in general she is feeling much better each day. Repeat blood work reveals hemoglobin of 8.7. Potassium 3.9, BUN 18 and creatinine 0.69. Heart rate has been in the 80s and low 90s, blood pressure 131/63, pulse ox 96% on 2 L nasal cannula. physical therapist assistant has been in a sinus rhythm with PVC every 3-4 beats. 07/03 RINA performed yesterday by Dr. Petty revealed severe aortic stenosis. He will plan to do workup in the office for possible surgical intervention. Patient denies any new complaints today. She states she did not go home last time she was waiting for her modified barium swallow. She continues to have some edema to the lower extremities but shortness of breath is significantly improved. She is hoping to go home soon. Heart rate has been in the 60s to 80s, blood pressure 114/56, pulse ox 90% on room air. Repeat blood work reveals sodium 139, potassium 3.9, BUN 16 creatinine 0.68. Physical examination: Gen: This is a morbidly obese 77-year-old female. She is sitting in a recliner and appears to be comfortable at rest. VS: reviewed HEENT: Head is atraumatic, normocephalic. Pupils equal, round. Sclerae is anicteric. NECK: Supple. No JVD. Bilateral carotid bruit. LUNGS: Diminished bilaterally. No intercostal retractions. HEART: Regular rate and rhythm. Positive murmur at the right upper sternal [place]. ABDOMEN: Soft. Bowel sounds are present. No masses. No tenderness. EXTREMITIES: Trace bilateral pedal edema. NEUROLOGICAL: Patient is awake, alert and oriented x3. Assessment: Possible right lower lobe pneumonia on antibiotics Small pericardial effusion Moderate to severe aortic stenosis Abdominal pain radiating to her neck of unclear etiology [place] Carotid atherosclerosis Hypertension Hyperlipidemia History of right lower lobe resection Obstructive sleep apnea Plan: Continue to hold losartan Continue Increased dose of Bisoprolol 7.5 mg daily Continue patient's other home cardiac medications Patient is cleared for discharge from cardiology and may follow-up with Dr. Petty as scheduled. Nurse practitioner note has been reviewed, I agree with documented findings and plan of care. Patient was seen and examined. Objective - Vital Signs Vital signs: Vital Signs Temp 97.5 F L 07/02/22 20:00 Pulse 62 02/02/23 08:15 Resp 20 07/03/22 04:00 BP 120/56 07/03/22 04:00 Pulse Ox 98 07/03/22 08:03 FiO2 Intake & Output 07/02/22 07/03/22 07/03/22 18:59 06:59 18:59 Intake Total 168 540 Balance 168 540 Intake: IV 50 Oral 118 540 Other: Voiding Method Toilet # Voids 1 - Labs CBC & Chem 7: 07/02/22 08:42 07/03/22 08:24 Labs: Abnormal Lab Results - Last 24 Hours (Table) 07/02/22 07/02/22 07/03/22 Range/Units 08:42 08:42 08:24 RBC 3.58 L (3.80-5.40) m/uL Hgb 8.7 L (11.4-16.0) gm/dL Hct 28.9 L (34.0-46.0) % MCH 24.2 L (25.0-35.0) pg MCHC 30.1 L (31.0-37.0) g/dL RDW 17.7 H (11.5-15.5) % Carbon Dioxide 34 H (22-30) mmol/L BUN 18 H (7-17) mg/dL Glucose 113 H 123 H (74-99) mg/dL
== END 2022-07-03 10:31 | DRG 190 ==
LOC: EC 09:12 → 3SCARD 12:16
PROVIDERS: ADMIT Internal Medicine; ATTEND Internal Medicine
PROC: B24BZZ4 Ultrasonography of Heart with Aorta, Transesophageal (ICD-10-PCS; principal; 2022-07-02 07:30)
DX: J44.0 Chronic obstructive pulmonary disease with (acute) lower respiratory infection (principal); I50.21 Acute systolic (congestive) heart failure; J18.9 Pneumonia, unspecified organism; I31.39 Other pericardial effusion (noninflammatory); N17.9 Acute kidney failure, unspecified; I42.9 Cardiomyopathy, unspecified; Z68.43 Body mass index [BMI] 50.0-59.9, adult; D63.8 Anemia in other chronic diseases classified elsewhere; I11.0 Hypertensive heart disease with heart failure; I65.29 Occlusion and stenosis of unspecified carotid artery; E03.9 Hypothyroidism, unspecified; E66.01 Morbid (severe) obesity due to excess calories; I08.3 Combined rheumatic disorders of mitral, aortic and tricuspid valves; G47.33 Obstructive sleep apnea (adult) (pediatric); I49.3 Ventricular premature depolarization; R01.1 Cardiac murmur, unspecified; R03.1 Nonspecific low blood-pressure reading; N28.1 Cyst of kidney, acquired; R13.10 Dysphagia, unspecified; E78.5 Hyperlipidemia, unspecified; E83.42 Hypomagnesemia; Z20.822 Contact with and (suspected) exposure to COVID-19; Z87.01 Personal history of pneumonia (recurrent); Z90.2 Acquired absence of lung [part of]; Z85.038 Personal history of other malignant neoplasm of large intestine; Z85.3 Personal history of malignant neoplasm of breast; Z86.73 Personal history of transient ischemic attack (TIA), and cerebral infarction without residual deficits; Z79.899 Other long term (current) drug therapy; Z79.890 Hormone replacement therapy; Z88.1 Allergy status to other antibiotic agents; Z91.040 Latex allergy status; Z91.041 Radiographic dye allergy status; Z88.8 Allergy status to other drugs, medicaments and biological substances; Z91.013 Allergy to seafood; Z88.5 Allergy status to narcotic agent; Z87.891 Personal history of nicotine dependence; Z82.49 Family history of ischemic heart disease and other diseases of the circulatory system; Z90.49 Acquired absence of other specified parts of digestive tract; Z92.3 Personal history of irradiation; Z79.51 Long term (current) use of inhaled steroids
CPT/HCPCS: 36415; 74230; 80048; 80053; 82150; 83605; 83690; 83735; 83880; 84484; 85025; 85027; 87070; 87205; 87636; 93005; 93306; 93312; 93320; 93325; 94640; 94760; 96361; 96365; 96366; 96375; 99285

== ENCOUNTER → 2022-08-19 | Outpatient (CLI) | payer MEDICARE ==
[2022-08-19 11:47] LABS: Appearance,Urine Cloudy (Clear); Bacteria,Urine Rare /hpf; Bilirubin,Urine Negative (Negative); Blood,Urine Negative (Negative); Color,Urine Light Yellow; Glucose,Urine (UA) Negative (Negative); Hyaline Casts,Urine 3 /lpf (0-2); Ketones,Urine Negative (Negative); Leukocyte Esterase,Urine Large (Negative); Mucus,Urine Rare /hpf; Nitrite,Urine Negative (Negative); PH, Urine 6.5 (5.0-8.0); Protein,Urine Trace (Negative); RBC,Urine 2 /hpf (0-5); Specific Gravity,Urine 1.017 (1.001-1.035); Squamous Epithelial Cell,Urine 3 /hpf (0-4); Urobilinogen,Urine <2.0 mg/dL (<2.0); WBC,Urine 40 /hpf (0-5)
[2022-08-19 14:20] LABS: Basophils # (A) 0.06 X 10*3/uL (0.00-0.10); Basophils % (A) 0.6 %; Eosinophils # (A) 0.16 X 10*3/uL (0.04-0.35); Eosinophils % (A) 1.6 %; HCT 31.8 % (37.2-46.3); HGB 9.5 g/dL (12.0-15.0); Immature Grans, Automated 1.6 %; Lymphocytes # (A) 1.12 X 10*3/uL (0.90-5.00); Lymphocytes % (A) 11.4 %; MCH 24.1 pg (27.0-32.0); MCHC 29.9 g/dL (32.0-37.0); MCV 80.7 fL (80.0-97.0); Mean Platelet Volume 10.4 fL (9.5-12.2); Monocytes # (A) 0.71 X 10*3/uL (0.20-1.00); Monocytes % (A) 7.3 %; NRBC Per 100 WBC 0 /100 WBCS (0.0-0.0); Neutrophils # (A) 7.58 X 10*3/uL (1.80-7.70); Neutrophils % (A) 77.5 %; Platelet Count 419 X 10*3/uL (140-440); RBC 3.94 X 10*6/uL (4.10-5.20); RDW 18.9 % (11.5-14.5); WBC 9.79 X 10*3/uL (4.50-10.00)
[2022-08-19 16:03] LABS: INR 0.96 (0.90-1.11); Prothrombin Time 10.9 sec (9.9-11.9)
[2022-08-19 16:15] LABS: ALT 17 U/L (8-44); AST 16 U/L (13-35); African American GFR (CKD) 56.7 (60.0-200.0); Albumin 3.6 g/dL (3.8-4.9); Albumin/Globulin Ratio 1.23 (1.60-3.17); Alkaline Phosphatase 82 U/L (41-126); Bilirubin, Conjugated <0.20 mg/dL (0.20-0.40); Blood Urea Nitrogen 36.3 mg/dL (9.0-27.0); Calcium 9.9 mg/dL (8.7-10.3); Carbon Dioxide 33.2 mmol/L (20.0-27.5); Chloride 94 mmol/L (96-109); Chol/HDL Ratio 3.35 Ratio; Globulin 2.9 g/dL (1.6-3.3); Glucose 124 mg/dL (70-110); LDL Cholesterol,Calculated 69.8 mg/dL (0.0-131.0); Magnesium 1.9 mg/dL (1.5-2.4); Non-African American GFR(CKD) 48.9 (60.0-200.0); Potassium 3.3 mmol/L (3.5-5.5); Sodium 141 mmol/L (135-145); Total Protein 6.5 g/dL (6.2-8.2)
== END | disposition home or self-care (01) ==
LOC: LABWHC1 09:01
PROVIDERS: ATTEND Thoracic Surgery (Cardiothoracic Vascular Surgery)
DX: Z01.818 Encounter for other preprocedural examination (principal); I35.0 Nonrheumatic aortic (valve) stenosis; E87.8 Other disorders of electrolyte and fluid balance, not elsewhere classified; Z79.899 Other long term (current) drug therapy; E07.9 Disorder of thyroid, unspecified; Z79.01 Long term (current) use of anticoagulants; E11.9 Type 2 diabetes mellitus without complications; N28.9 Disorder of kidney and ureter, unspecified; E78.5 Hyperlipidemia, unspecified; R35.0 Frequency of micturition; R58 Hemorrhage, not elsewhere classified
CPT/HCPCS: 36415; 80053; 80061; 81001; 82248; 83735; 84439; 84443; 85025; 85610; 87086

== ENCOUNTER → 2022-08-26 | Outpatient (CLI) | payer MEDICARE ==
--- NOTE | 2022-08-26 12:26 | CT ---
EXAMINATION TYPE: CT TAVR Planning DATE OF EXAM: 08/26/2022 HISTORY: TAVR CT DLP: 2546.9 mGycm Automated Exposure Control for Dose Reduction was Utilized. CONTRAST: CT scan of the chest, abdomen and pelvis is performed with IV Contrast, patient injected with 125 mL of Isovue 370. COMPARISON: None TECHNIQUE: Helical imaging obtained through the chest, abdomen and pelvis during arterial phase shirley hailey administration of radiographic contrast intravenously. FINDINGS: See report from [employer] regarding preprocedural planning CHEST: Lower Neck and Thyroid: No significant findings Lungs: Right basilar compressive atelectasis or chronic parenchymal scarring. Pleural thickening righ t middle lobe. Central Airway: No significant findings Pleura: Left-sided pleural effusion AP dimension 6.4 cm. Pulmonary Arteries: No significant findings Heart and Pericardium: Calcifications aortic valve. Coronary artery calcifications. Trace pericardial effusion measuring 5 mm. Lymph Nodes: No significant findings Mediastinum & Esophagus: No significant findings ABDOMEN/PELVIS: Please note arterial phase of the imaging limits detailed evaluation of the solid abdominal organs. Liver: No significant findings Spleen: No significant findings Kidneys: No significant findings Adrenal Glands: No significant findings Pancreas: No significant findings Gallbladder: No significant findings IMPRESSION: As above
== END | disposition home or self-care (01) ==
LOC: RADCTMAIN 10:27
PROVIDERS: ATTEND Thoracic Surgery (Cardiothoracic Vascular Surgery)
DX: J90 Pleural effusion, not elsewhere classified (principal); I35.0 Nonrheumatic aortic (valve) stenosis; J98.11 Atelectasis
CPT/HCPCS: 71275; 74174; Q9967

== ENCOUNTER → 2022-09-01 | Outpatient (CLI) | payer MEDICARE ==
[2022-09-01 17:20] LABS: Partial Thromboplastin Time 26.2 sec (22.0-30.0); Prothrombin Time 10.5 sec (9.0-12.0)
[2022-09-02 05:15] LABS: Basophils # (A) 0.07 X 10*3/uL (0.00-0.10); Basophils % (A) 0.5 %; Eosinophils # (A) 0.18 X 10*3/uL (0.04-0.35); Eosinophils % (A) 1.3 %; HCT 34.8 % (37.2-46.3); HGB 10.2 g/dL (12.0-15.0); Immature Grans, Automated 1.2 %; Lymphocytes # (A) 1.47 X 10*3/uL (0.90-5.00); Lymphocytes % (A) 10.8 %; MCH 23.4 pg (27.0-32.0); MCHC 29.3 g/dL (32.0-37.0); MCV 79.8 fL (80.0-97.0); Mean Platelet Volume 10.4 fL (9.5-12.2); Monocytes # (A) 1.08 X 10*3/uL (0.20-1.00); Monocytes % (A) 7.9 %; NRBC Per 100 WBC 0 /100 WBCS (0.0-0.0); Neutrophils # (A) 10.64 X 10*3/uL (1.80-7.70); Neutrophils % (A) 78.3 %; Platelet Count 482 X 10*3/uL (140-440); RBC 4.36 X 10*6/uL (4.10-5.20); RDW 19.1 % (11.5-14.5); WBC 13.61 X 10*3/uL (4.50-10.00)
[2022-09-02 05:47] LABS: African American GFR (CKD) 52.1 (60.0-200.0); Anion Gap 13.5 mmol/L (10.00-18.00); BUN/Creat Ratio 38.46 Ratio (12.00-20.00); Calcium 10.4 mg/dL (8.7-10.3); Carbon Dioxide 33.6 mmol/L (20.0-27.5); Non-African American GFR(CKD) 44.9 (60.0-200.0); Potassium 3.1 mmol/L (3.5-5.5)
== END | disposition home or self-care (01) ==
LOC: LABPAT 15:55
PROVIDERS: ATTEND Thoracic Surgery (Cardiothoracic Vascular Surgery)
DX: Z01.812 Encounter for preprocedural laboratory examination (principal); I35.0 Nonrheumatic aortic (valve) stenosis; I35.1 Nonrheumatic aortic (valve) insufficiency; Z79.899 Other long term (current) drug therapy; R58 Hemorrhage, not elsewhere classified
CPT/HCPCS: 80048; 85025; 85610; 85730

== ENCOUNTER 2022-09-10 05:53 | Inpatient (IN) | payer MEDICARE ==
[~2022-09-10 05:53] MED LIST: DEXAMETHASONE SOD PHOSPHATE 4 MG/ML 1 ML VIAL IV ONE; LACTATED RINGERS 1,000 ML IV SCH; LIDOCAINE 1% (10MG/ML) FOR IV START INTRADERMA PRN; MIDAZOLAM 2 MG/2 ML VIAL IV PRN; ONDANSETRON 4 MG/2 ML VIAL IVP ONE
[2022-09-10] MEDS ORDERED: METOPROLOL TARTRATE 25 MG TAB PO ONE (06:00)
[2022-09-10] MEDS ORDERED: LACTATED RINGERS 1,000 ML IV SCH ×2 (06:00→09:41)
[2022-09-10] MEDS ORDERED: ELECTROLYTE-A SOLUTION 1,000 ML with POTASSIUM CHLORIDE 100 MEQ, MAGNESIUM SULFATE 16 M... IV PRN ×5 (06:00)
[2022-09-10] MEDS ORDERED: TRANEXAMIC ACID 2,000 MG in SODIUM CHLORIDE 0.9% 80 ML IV PRN (06:00)
[2022-09-10] MEDS ORDERED: CLEVIDIPINE BUTYRATE 25 MG in EMPTY BAG 1 BAG IV PRN (06:00)
[2022-09-10] MEDS ORDERED: NITROGLYCERIN-D5W PMX 25 MG/250 ML BTL IV PRN (06:00)
[2022-09-10] MEDS ORDERED: PROTAMINE SULFATE 250 MG in EMPTY BAG 1 BAG IV PRN (06:00)
[2022-09-10] MEDS ORDERED: CLOPIDOGREL 75 MG TAB PO ONE (06:00)
[2022-09-10] MEDS ORDERED: ASPIRIN 325 MG TAB PO ONE (06:00)
[2022-09-10] MEDS ORDERED: INSULIN REGULAR 100 UNIT in SODIUM CHLORIDE 0.9% 100 ML IV PRN (06:00)
[2022-09-10] MEDS ORDERED: SODIUM CHLORIDE 0.9% 500 ML 500 ML INTRAARTER PRN (06:00)
[2022-09-10] MEDS ORDERED: ATORVASTATIN 10 MG TAB PO ONE (06:00)
[2022-09-10] MEDS ORDERED: SODIUM CHLORIDE 0.9% 1,000 ML IV ONE (06:35)
[2022-09-10 06:45] LABS: Glucose,Whole Blood 191 mg/dL (70-110)
[2022-09-10] MEDS ORDERED: HYDROmorphone 0.5 MG/0.5 ML SYRINGE IVP PRN (07:00)
[2022-09-10] MEDS ORDERED: Potassium Replacement Protocol 1 EACH MISC MISCELLANE PRN ×2 (07:21→11:37)
[2022-09-10] MEDS ORDERED: PHENYLEPHRINE-0.9% NACL SYG 1,000 MCG/10 ML SYRINGE ONE (07:41)
[2022-09-10] MEDS ORDERED: fentaNYL (PF) 50 MCG/ML 2 ML AMP ONE (07:41)
[2022-09-10] MEDS ORDERED: ETOMIDATE 2 MG/ML 10 ML VIAL ONE (07:41)
[2022-09-10] MEDS ORDERED: NEOSTIGMINE 1 MG/ML 10 ML VIAL ONE (07:41)
[2022-09-10] MEDS ORDERED: SUCCINYLCHOLINE CHLORIDE 200 MG/10 ML VIAL IV ONE (07:41)
[2022-09-10] MEDS ORDERED: PROTAMINE SULFATE 10 MG/ML 5 ML VIAL IV ONE (07:41)
[2022-09-10] MEDS ORDERED: HEPARIN SODIUM,PORCINE 5,000 UNIT/ML 1 ML VIAL ONE (07:41)
[2022-09-10] MEDS ORDERED: GLYCOPYRROLATE 0.2 MG/ML 2 ML VIAL ONE (07:41)
[2022-09-10] MEDS ORDERED: ROCURONIUM 10 MG/ML (5 ML VIAL) IV ONE (07:41)
[2022-09-10] MEDS ORDERED: MIDAZOLAM 2 MG/2 ML VIAL ONE (07:41)
[2022-09-10] MEDS ORDERED: HEPARIN SODIUM,PORCINE 10,000 UNIT/ML 1 ML VIAL ONE (07:41)
[2022-09-10] MEDS: POTASSIUM CHLORIDE ER 20 MEQ TAB.ER PO SCH ×2 (07:44→18:22)
[2022-09-10 07:45] LABS: Calcium 9.5 mg/dL (8.4-10.2)
[2022-09-10] MEDS ORDERED: IOPAMIDOL-370 100ML BTL INJ ONE (09:08)
--- NOTE | 2022-09-10 09:23 | P.PCN ---
Description of Procedure: Transcatheter Aoritc Valve Replacement Operative report PROCEDURE PERFORMED: 1. Percutaneous Aortic Valve Implantation using a 34 mm Core-Valve Evolut-FX. 2. Transesophageal echocardiography (performed by anesthesia) 3. Ultrasound guided access and repair of left femoral artery access site by Perclose closure device. 4. Placement of temporary pacemaker wire. 5. Aortic root angiography INDICATIONS: 1. 77 year-old with a history of severe symptomatic aortic valve stenosis. PERFORMING PHYSICIANS: 1. Massimo Beal, Interventional Cardiology 2. William Herman MD, Cardiothoracic Surgeon. SEDATION: General anesthesia provided by anesthesia, see separate note APPROACH: Left femoral artery via percutaneous approach PROCEDURE DESCRIPTION: The patient was discussed at valve clinic with multidisciplinary approach with cardiothoracic surgeon as well as fire chief deputy and thought better treated with TAVR. Risks, benefits, and alternatives of the procedure had been explained to the patient who understood the risks and agreed to proceed. After consents were obtained, patient was brought to the transcatheter aortic valve implantation room in the cardiac labor relations or personnel negotiator and general anesthesia was provided by the anesthesiologist (see separate report). A right 6-[place] sheath was placed in the right common femoral vein. A 6-[place] temporary venous pacemaker was placed in the right ventricle. Pacing threshholds were checked and deemed appropriate. Next the right femoral artery was accessed using a modified Seldinger mike hnique, ultrasound guidance and micropuncture technique. A 6 [place] Rabi sheath was placed in the right femoral artery. Next, a 6-[place] pigtail catheter was advanced into the aorta and positioned in the aortic root, aortic root angiography was performed to determine optimal deployment angle. The left femoral artery was accessed using modified Seldinger technique, micropuncture technique and under direct ultrasound guidance. Femoral angiogram was done showing access in the common femoral artery and a 6Fr sheath was placed. Next preclose technique was performed using 2 Perclose. Next a 0.035 Safari wire was placed in the Aorta via a pigtail catheter. Over that the arteriotomy was serially dilated and a 18 Fr [place] sheath was placed. Next a 6F- AL1 catheter was advanced over a wire to the aortic root. A straight wire was advanced through the catheter and used to cross the severely stenotic valve. The AL1 was then exchanged for a 6Fr pigtail catheter and pressure measurements were obtained. The 0.035 [place] wire was then positioned in the apex. Next a 34 mm Corevalve Evolut-Fx was advanced. The valve was then positioned across the aortic valve and confirmed with aortic root angiography. The valve was initially partially deployed however needed repositioning and therefore was recaptured. The valve was then deployed in proper position using slow deployment and with rapid pacing in conjuncture with aortic root angiography and RINA. The delivery system was withdrawn back into the arch and an aortic root injection in conjunction with RINA demonstrated a satisfactory result. There was trace para valvular leak. There was no evidence of any other significant abnormalities. The preclose Perclose was then deployed in the left femoral artery along with a 8- [place] Angio-Seal and hemostasis was achieved. The pigtail was then advanced to the level of the iliac bifurcation via the right femoral access. Femoral angiogram was performed that showed no contrast leak. The right femoral angiogram demonstrated an arteriotomy in the common femoral artery and this was repaired using a 6F angioseal device with complete hemostasis. The temporary venous pacemaker was taken out and the 6-[place] venous sheath was taken out with manual pressure held and hemostasis achieved. The patient was then transported to the ICU in hemodynamically stable condition, requiring no pressor support. COMPLICATIONS: None CONCLUSION: 1. Implantaion of 34 Core-Valve Evolut-FX transcatheter aortic valve via left femoral approach under RINA and fluoro guidance with trace diana-valvular aortic regurgitation. 2. Placement of temporary pacemaker wire 3. Aortic Root Aortogram. RECOMMENDATIONS: The patient will be monitored in the ICU for hemodynamic and electrical stability. Patient will be on Plavix.
[2022-09-10] MEDS ORDERED: ONDANSETRON 4 MG/2 ML VIAL IVP PRN (09:41)
[2022-09-10] MEDS ORDERED: IPRATROPIUM-ALBUTEROL 3 ML NEB INHALATION PRN (09:41)
[2022-09-10] MEDS ORDERED: ACETAMINOPHEN TAB 325 MG TAB PO PRN (09:41)
[2022-09-10] MEDS ORDERED: ALBUTEROL HFA INHALER INHALATION PRN (09:41)
[2022-09-10 09:50] LABS: Glucose,Whole Blood 190 mg/dL (70-110)
--- NOTE | 2022-09-10 09:51 | P.ANPRN ---
Procedure Note - Anesthesia - RINA Intraop Pre Bypass RINA Intraop - Anesthesia Indication: aortic stenosis Date of Procedure: 09/10/22 Pre-operative Diagnosis: Aortic Stenosis Post-operative Diagnosis: S/p TAVR Surgeon: William Herman Left Ventricle: Good walll motion, Normal ef Ejection Fraction: Normal Regional Wall Motion Abnormalities: None Left Ventricle Hypertrophy: No Right Ventricle: wnl R. Ventricle Function: Normal Aortic Valve: severely restricted at all commisures. peak gradient 62 mean of 38. Vmax 3.8 Anatomy: Trileaflet Aortic Stenosis: Severe Aortic Regurgitation: None Mitral Stenosis: None Mitral Regurgitation: Trace Tricuspid Stenosis: None Tricuspid Regurgitation: Trace Pulmonic Stenosis: None Pulmonic Regurgitation: None Aortic Dissection: No Aortic Calcification: None
--- NOTE | 2022-09-10 09:53 | P.ANPRN ---
Procedure Note - Anesthesia - RINA Intraop Post Bypass RINA Intraop Post Bypass Procedure Performed: TAVR Left Ventricle: unchanged Ejection Fraction: Normal Regional Wall Motion Abnormalities: None R. Ventricle Function: Normal Aortic Valve: Good leaflet movement. peak gradient 16 mean of 8 Mitral Valve: Unchanged Tricuspid: Unchanged Pulmonic: Unchanged Aortic Dissection: No
--- NOTE | 2022-09-10 09:53 | P.OP ---
Date of Procedure: 09/10/22 Preoperative Diagnosis: Tricuspid calcific aortic stenosis Postoperative Diagnosis: Same Procedure(s) Performed: Percutaneous transfemoral transcatheter aortic valve replacement with 34 mm Medtronic Fx core valve revealed left transfemoral approach Implants: 34mm Fx CorValve Anesthesia: GETA Surgeon: William Herman (Cardiovascular surgeon) Gyn Physician #1: Massimo Beal (hazardous materials driver) Gyn Physician #2: Derick Garza (Physician-assisted) Estimated Blood Loss (ml): 25 IV fluids (ml): 1,000 Urine output (ml): 0 Pathology: none sent Condition: stable Disposition: ICU Indications for Procedure: 77-year-old morbidly obese patient with worsening dyspnea on exertion and known long history of aortic stenosis with worsening aortic stenosis by echocardiography. Echocardiography demonstrated severe aortic stenosis. Patient had normal coronary arteriogram catheterization. Elective Zita was planned after multidisciplinary evaluation in the high risk valve clinic. Description of Procedure: Patient was brought to the Senior Market Research Analyst and placed supine on the table. General anesthesia was induced. Bilateral femoral access was obtained by Dr. Beal and 6-[place] were placed in bilateral common femoral arteries. The right common femoral vein was also punctured and a 6-[place] sheath placed here. Through the common femoral vein on the right a pacing catheter was advanced into the right ventricle and tested. Right femoral arterial sheath was exchanged for a long [place] sheath and a pigtail advanced through this into the noncoronary sinus of Valsalva. Left common femoral artery had 2 Perclose devices implanted and then an 8-[place] sheath was placed. The patient was systemically heparinized. 8-[place] sheath was exchanged for an 18-[place] sheath over a stiff wire. We did uneventfully. Aortic valve was crossed with a straight wire from the left femoral side and a pigtail catheter positioned in the apex of the ventricle. Transvalvular gradients were measured. Safari wire was placed in the apex of the ventricle. 34 mm core valve and loaded on the back table and was checked under fluoroscopy. The 14-[place] sheath was exchanged for the core valve delivery system this was advanced upwards through the iliofemoral system through the abdominal and descending thoracic aorta around the aortic arch and across the aortic valve. After appropriate positioning the valve was deployed under rapid ventricular pacing. Coronary angiography and RINA were used to guide the implant. Implant depths were 3 on the right and 4 on the left. Valve deployment system is Safari wire were pulled back as was the pigtail catheter. RINA demonstrated excellent expansion and position of the valve with only trivial aortic insufficiency. Heparin was reversed with protamine. Temporary pacemaker wire was removed. The valve deployment system was exchanged for the 18 sheath over a J-wire and then 18-[place] sheath was removed and 2 Perclose devices were secured. Bilateral femoral hemostasis was obtained by Dr. Beal after removal of all groin sheaths. Completion angiography of the left femoral artery demonstrated no significant narrowing or leak or dissection of the femoral artery with excellent flow. Dressings were applied bilateral groins and the patient transferred to the ICU in stable condition.
[2022-09-10 09:59] LABS: Anisocytosis Slight; Basophils % (A) 0 %; Eosinophils % (A) 0 %; HCT 28.2 % (34.0-46.0); HGB 8.9 gm/dL (11.4-16.0); Hypochromasia Slight; Lymphocytes # (A) 0.5 k/uL (1.0-4.8); Lymphocytes % (A) 7 %; MCH 25.1 pg (25.0-35.0); MCHC 31.5 g/dL (31.0-37.0); MCV 79.4 fL (80.0-100.0); Mean Platelet Volume 7.5; Microcytosis Slight; Monocytes # (A) 0.2 k/uL (0-1.0); Monocytes % (A) 3 %; Neutrophils # (A) 6.3 k/uL (1.3-7.7); Neutrophils % (A) 90 %; Platelet Count 390 k/uL (150-450); RBC 3.55 m/uL (3.80-5.40); RDW 18.6 % (11.5-15.5); WBC 6.9 k/uL (3.8-10.6)
[2022-09-10 10:22] LABS: Prothrombin Time 10.9 sec (9.0-12.0)
[2022-09-10 10:31] LABS: Albumin 2.9 g/dL (3.5-5.0); Calcium 8.6 mg/dL (8.4-10.2); Magnesium 1.6 mg/dL (1.6-2.3); Potassium 3.1 mmol/L (3.5-5.1); Total Bilirubin 0.3 mg/dL (0.2-1.3); Total Protein 5.6 g/dL (6.3-8.2)
[2022-09-10] MEDS ORDERED: POTASSIUM CHLORIDE ER 20 MEQ TAB.ER PO STA (11:34)
[2022-09-10] MEDS ORDERED: POTASSIUM CHLORIDE 10 MEQ in WATER FOR INJECTION 1 100ML.BAG IVPB SCH (12:00)
--- NOTE | 2022-09-10 12:18 | XR ---
EXAMINATION TYPE: XR chest 1V portable DATE OF EXAM: 09/10/2022 COMPARISON: 06/28/2022 HISTORY: Postop cardiac surgery TECHNIQUE: Single frontal view of the chest is obtained. FINDINGS: A limited inspiration with bilateral consolidation and small effusion. No overt failure. I nterstitium is stable from prior exam and there appears to be a aortic stent is noted in position. At herosclerotic change aorta. No pneumothorax. Surgical changes in the soft tissues of the right neck a nd calcification in the left neck may be related to carotid artery. Arthropathy of the shoulders. IMPRESSION: 1. Postoperative change with bibasilar atelectasis or early infiltrate and small pleural effusions.
--- NOTE | 2022-09-10 13:47 | P.CNPUL ---
History of Present Illness Consult date: 09/10/22 Requesting physician: Massimo Beal Reason for consult: other Chief complaint: ICU management. History of present illness: Primary consult dated 09/10/2022. 77-year-old female status post trans-catheter aortic valve replacement for aortic stenosis. The patient has a history of hypertension, and hyperlipidemia, and is seen today in the intensive care unit, room 264. She appears to be doing well. The procedure was done by Dr. Beal, and Dr. Herman. The patient is currently on 2 L of oxygen. She's getting lactated Ringer's at 100 mL an hour. She had severe symptomatic aortic stenosis. Currently labs include a white count 6.9, hemoglobin 8.9, hematocrit 28.2, and platelet count 390,000. Coagulation studies were normal. Sodium 135, potassium 3.1, chlorides 98, CO2 29, BUN 57, creatinine 1.41. Albumin is 2.9. Chest x-ray shows some postoperative changes with bibasilar atelectasis, and small pleural effusions. The exact procedure was a previous cutaneous transfemoral transcatheter aortic valve replacement with 34 mm Medtronic Fx core valve Review of Systems REVIEW OF SYSTEMS: Patient currently stable without complaints. Patient recently arrived back from the catheterization laboratory. CONSTITUTIONAL: [Negative.] NEUROLOGIC: [ Negative.] HEENT: [ Negative.] CARDIAC: [Negative.] PULMONARY: [Negative.] GI: [Negative.] : [Negative.] RHEUMATOLOGIC: [ Negative.] IMMUNOLOGIC: [ Negative.] ENDOCRINE: [Negative. ] DERMATOLOGIC: [Negative.] Past Medical History Past Medical History: Asthma, Cancer, Eye Disorder, Hyperlipidemia, Hypertension, Osteoarthritis (OA), Pneumonia, Skin Disorder, Thyroid Disorder Additional Past Medical History / Comment(s): hx. pneumonia 2022, sob, aortic valve stenosis, Colon CA-no chemo or radiation, LT breast CA-received radiation, GLAUCOMA, DVT RT LEG YEARS AGO, psoriasis, seen in local EC 2 weeks ago for dehydration & sinus infection, finished A/B last Thu, states they did covid test & was neg., still w/nasal congestion & phlegm History of Any Multi-Drug Resistant Organisms: None Reported Past Surgical History: Bowel Resection, Heart Catheterization, Orthopedic S urgery Additional Past Surgical History / Comment(s): colectomy, R lower lobe lung removed, LT BREAST LUMPECTOMY, COLONOSCOPY, BILAT CATARACTS REMOVED WITH LENS IMPLANTS, right knee arthroscopy Past Anesthesia/Blood Transfusion Reactions: Motion Sickness Additional Past Anesthesia/Blood Transfusion Reaction / Comment(s): no hx blood transfusion Smoking Status: Former smoker - Past Family History Mother Family Medical History: Cancer, Myocardial Infarction (DC) Father Family Medical History: Diabetes Mellitus Sister(s) Family Medical History: Cancer Medications and Allergies Home Medications Medication Instructions Recorded Confirmed Type Latanoprost [Xalatan 0.005%] 1 drop BOTH EYES HS 09/12/16 09/08/22 History Potassium Chloride ER [K-Dur 20] 20 meq PO DAILY 09/12/16 09/08/22 History allopurinoL [Zyloprim] 300 mg PO DAILY 09/12/16 09/10/22 History Albuterol Inhaler [Ventolin Hfa 2 puff INHALATION RT-Q6H PRN 07/02/21 09/08/22 History Inhaler] Anastrozole [Arimidex] 1 mg PO DAILY 07/02/21 09/10/22 History Mirabegron [Myrbetriq] 50 mg PO DAILY 07/02/21 09/10/22 History Fluticasone/Umeclidin/Vilanter 1 puff INHALATION RT-DAILY 12/17/21 09/10/22 History [Trelegy Ellipta 100-62.5-25] Betamethasone Dipropionate 1 applic TOPICAL BID PRN 06/29/22 09/08/22 History [Betamethasone Dipropionate 0.05%] Levothyroxine Sodium 150 mcg PO AC-BRKFST 06/29/22 09/10/22 History Rosuvastatin Calcium 10 mg PO DAILY 06/29/22 09/08/22 History Acetaminophen [Tylenol] 650 mg PO Q4H PRN 08/01/22 09/08/22 History Bisoprolol [Zebeta] 5 mg PO DAILY 08/01/22 09/08/22 History Bumetanide [BUMEX] 1 mg PO BID 08/01/22 09/08/22 History metOLazone [Zaroxolyn] 2.5 mg PO DAILY 08/01/22 09/08/22 History Multivit-Min/Iron/Folic/Lutein 1 each PO DAILY 09/08/22 09/08/22 History [Centrum Silver Women Tablet] Allergies Allergy/AdvReac Type Severity Reaction Status Date / Time clindamycin Allergy Rash/Hives Verified 09/10/22 06:31 indomethacin Allergy Unknown Verified 09/10/22 06:31 Iodinated Contrast Media Allergy Rash/Hives/ Verified 09/10/22 06:31 [Iodinated Contrast Media - Itching Oral and] latex Allergy Rash/Hives/ Verified 09/10/22 06:31 Itching morphine Allergy Rash/Hives/ Verified 09/10/22 06:31 Itching shellfish derived [Shellfish] Allergy Rash/Hives/ Verified 09/10/22 06:31 Itching Physical Exam Osteopathic Statement: *. No significant issues noted on an osteopathic structural exam other than those noted in the History and Physical/Consult. Vitals: Vital Signs Temp Pulse Pulse Resp BP BP BP 09/10/22 11:00 78 13 09/10/22 10:45 78 14 09/10/22 10:30 79 15 09/10/22 10:15 81 18 107/54 09/10/22 10:00 83 18 09/10/22 09:45 96.6 F L 79 14 110/55 09/10/22 06:37 97.7 F 86 18 143/60 117/58 Pulse Ox 09/10/22 11:00 97 09/10/22 10:45 98 09/10/22 10:30 97 09/10/22 10:15 97 09/10/22 10:00 93 L 09/10/22 09:45 98 09/10/22 06:37 96 Intake and Output 09/09/22 09/10/22 09/10/22 22:59 06:59 14:59 Intake Total 100 1200 Balance 100 1200 Intake: IV 100 1200 Lactated Ringers 1,000 ml 400 @ 100 mls/hr IV .Q10H [facility] Rx#:[id number] Other: Voiding Method Toilet Weight 104.1 kg ABP, PAP, CO, CI - Last 8 Hours Arterial Blood Pressure 117/50 Arterial Blood Pressure 112/42 Arterial Blood Pressure 124/46 Arterial Blood Pressure 114/45 Arterial Blood Pressure 116/46 No acute distress, oriented 3. No respiratory distress. Currently on 2 L of oxygen. HEENT examination is grossly unremarkable. Neck supple. Full range of motion. No adenopathy thyromegaly or neck vein distention. Cardiovascular examination reveals regular rhythm rate. S1-S2 normal. No S3 or S4. No discernible murmur noted. Heart rate 78 bpm. Lungs reveal clear breath sounds. Breath sounds are equal bilaterally. No adventitious lung sounds including wheezes rhonchi or crackles. 2 L saturation is 98%. Abdomen soft bowel sounds are heard. No masses or tenderness. Extremities are intact. No cyanosis clubbing or edema. Skin is without rash or lesion. Neurologic examination is brief but nonfocal. Results - Laboratory Findings CBC and BMP: 09/10/22 09:45 09/10/22 09:45 PT/INR, D-dimer PT 10.9 sec (9.0-12.0) 09/10/22 09:45 INR 1.0 (<1.2) 09/10/22 09:45 Abnormal lab findings: Abnormal Labs 09/10/22 09/10/22 09/10/22 06:10 06:41 09:45 RBC 3.55 L Hgb 8.9 L Hct 28.2 L MCV 79.4 L RDW 18.6 H Lymphocytes # 0.5 L Sodium 135 L Potassium 3.0 L Chloride 93 L BUN 68 H Creatinine 1.66 H Glucose 193 H POC Glucose (mg/dL) 191 H Total Protein Albumin 09/10/22 09/10/22 09:45 09:48 RBC Hgb Hct MCV RDW Lymphocytes # Sodium 135 L Potassium 3.1 L Chloride BUN 57 H Creatinine 1.41 H Glucose 187 H POC Glucose (mg/dL) 190 H Total Protein 5.6 L Albumin 2.9 L - Diagnostic Findings Chest x-ray: image reviewed Assessment and Plan Assessment: Postop day #0, status post transcatheter aortic valve replacement for severe and symptomatic aortic stenosis. History of carotid artery disease. History of hypertension. History of dyslipidemia. Obesity. Plan: Plan dated 09/10/2022. The patient is seen in the intensive care unit, room #264. Her family is in the room with her. She is receiving nasal O2 at 2 L. Saturations are 98%. She also getting lactated Ringer's 100 mL an hour. She appears to be very stable. Potassium is a bit low and will be replaced. We will follow along and make recommendations along the way. Labs, x-rays, and medications are reviewed. Time with Patient: Greater than 30
[2022-09-10] MEDS ORDERED: LATANOPROST 0.005% OPHTH DROPS 2.5 ML BTL BOTH EYES SCH (21:00)
[2022-09-10] MEDS: HEPARIN SODIUM,PORCINE/PF 5,000 UNIT/0.5 ML SYRINGE SQ SCH (23:30)
[2022-09-11] MEDS ORDERED: POTASSIUM CHLORIDE ER 20 MEQ TAB.ER PO SCH ×2 (02:00→09:00)
[2022-09-11 05:30] VITALS: TEMP 98.1
[2022-09-11 06:51] LABS: Anisocytosis Slight; Basophils % (A) 0 %; Eosinophils % (A) 0 %; HCT 32.5 % (34.0-46.0); HGB 9.9 gm/dL (11.4-16.0); Hypochromasia Moderate; Lymphocytes # (A) 0.9 k/uL (1.0-4.8); Lymphocytes % (A) 9 %; MCH 25.2 pg (25.0-35.0); MCHC 30.5 g/dL (31.0-37.0); MCV 82.6 fL (80.0-100.0); Mean Platelet Volume 7.6; Microcytosis Slight; Monocytes # (A) 0.7 k/uL (0-1.0); Monocytes % (A) 7 %; Neutrophils # (A) 8.5 k/uL (1.3-7.7); Neutrophils % (A) 82 %; Platelet Count 347 k/uL (150-450); RBC 3.94 m/uL (3.80-5.40); RDW 18.8 % (11.5-15.5); WBC 10.3 k/uL (3.8-10.6)
[2022-09-11 06:58] LABS: Ionized Calcium 5.4 mg/dL (4.5-5.3)
[2022-09-11 07:08] LABS: Calcium 9.3 mg/dL (8.4-10.2)
[2022-09-11 07:26] LABS: Magnesium 1.9 mg/dL (1.6-2.3); Potassium 5.2 mmol/L (3.5-5.1); Total Bilirubin 0.7 mg/dL (0.2-1.3); Total Protein 6.3 g/dL (6.3-8.2)
[2022-09-11] MEDS ORDERED: LEVOTHYROXINE 75 MCG TAB PO SCH (07:30)
[2022-09-11] MEDS ORDERED: PANTOPRAZOLE 40 MG TABLET PO SCH (07:30)
[2022-09-11] MEDS ORDERED: SYMBICORT 80-4.5 MCG INHALER INHALATION SCH (08:00)
[2022-09-11] MEDS: HEPARIN SODIUM,PORCINE/PF 5,000 UNIT/0.5 ML SYRINGE SQ SCH (08:48)
[2022-09-11] MEDS ORDERED: NON FORMULARY DRUG (Mirabegron [Myrbetriq] 50 MG Tablet) PO SCH (09:00)
[2022-09-11] MEDS ORDERED: BISOPROLOL 5 MG TAB PO SCH (09:00)
[2022-09-11] MEDS ORDERED: BUMETANIDE 1 MG TAB PO SCH (09:00)
[2022-09-11] MEDS ORDERED: MAGNESIUM HYDROXIDE 2,400 MG/10 ML CUP PO PRN (09:00)
[2022-09-11] MEDS ORDERED: metOLazone 2.5 MG TAB PO SCH (09:00)
[2022-09-11] MEDS ORDERED: ATORVASTATIN 20 MG TAB PO SCH (09:00)
[2022-09-11] MEDS ORDERED: allopurinoL 300 MG TAB PO SCH (09:00)
[2022-09-11] MEDS ORDERED: ANASTROZOLE 1 MG TAB PO SCH (09:00)
[2022-09-11] MEDS ORDERED: MULTIVITAMINS, THERA 1 EACH TAB PO SCH (09:00)
[2022-09-11] MEDS ORDERED: CLOPIDOGREL 75 MG TAB PO SCH (09:00)
[2022-09-11] MEDS ORDERED: bisacodyL 10 MG SUPP RECTAL PRN (09:00)
[2022-09-11] MEDS: IPRATROPIUM 0.5 MG/2.5 ML NEBU INHALATION SCH ×2 (09:14→11:43)
--- NOTE | 2022-09-11 09:29 | P.PN ---
Subjective Progress Note Date: 09/11/22 Principal diagnosis: Aortic stenosis. Pulmonary consult dated 09/10/2022. 77-year-old female status post trans-catheter aortic valve replacement for aortic stenosis. The patient has a history of hypertension, and hyperlipidemia, and is seen today in the intensive care unit, room 264. She appears to be doing well. The procedure was done by Dr. Beal, and Dr. Herman. The patient is currently on 2 L of oxygen. She's getting lactated Ringer's at 100 mL an hour. She had severe symptomatic aortic stenosis. Currently labs include a white count 6.9, hemoglobin 8.9, hematocrit 28.2, and platelet count 390,000. Coagulation studies were normal. Sodium 135, potassium 3.1, chlorides 98, CO2 29, BUN 57, creatinine 1.41. Albumin is 2.9. Chest x-ray shows some postopera tive changes with bibasilar atelectasis, and small pleural effusions. The exact procedure was a previous cutaneous transfemoral transcatheter aortic valve replacement with 34 mm Medtronic Fx core valve. Progress note dated 09/11/2022. 77-year-old female postop day #1, status post transcatheter aortic valve replacement, for severe, symptomatic aortic stenosis. The patient has a history of hypertension and hyperlipidemia. She seen today in room 264. The patient's on room air. She's not receiving any IV fluids. According to the nurse, she had an uneventful night. Lab data includes a white count 10.3, hemoglobin 9.9, hematocrit 32.5, and platelet count 347,000. Sodium 138, potassium 5.2, chlorides 105, CO2 29, BUN 40, creatinine 0.96. Chest x-ray shows in my opinion only significant cardiomegaly. Objective - Vital Signs Vital signs: Vital Signs Temp 98.1 F 09/11/22 04:00 Pulse 92 09/11/22 09:00 Resp 19 09/11/22 09:00 BP 110/71 09/11/22 07:00 Pulse Ox 96 09/11/22 08:00 FiO2 2 09/11/22 00:00 Intake & Output 09/10/22 09/11/22 09/11/22 18:59 06:59 18:59 Intake Total 1700 1020 150 Output Total 500 800 Balance 1200 220 150 Weight 106.141 kg Intake: IV 1700 420 100 KVO 120 100 Lactated Ringers 1,000 ml 900 300 @ 100 mls/hr IV .Q10H [facility] Rx#:[id number] Intake, IV Titration 100 50 Amount ceFAZolin 2 gm In Sodium 100 50 Chloride 0.9% 50 ml @ 100 mls/hr IVPB Q8HR [facility] Rx# :[id number] Oral 500 Output: Urine 500 800 Other: Voiding Method Toilet Toilet # Voids 1 ABP, PAP, CO, CI - Last Documented Arterial Blood Pressure 92/39 - Exam No acute distress, oriented 3. No respiratory distress. Currently on no supplemental oxygen. HEENT examination is grossly unremarkable. Neck supple. Full range of motion. No adenopathy thyromegaly or neck vein distention. Cardiovascular examination reveals regular rhythm rate. S1-S2 normal. No S3 or S4. No discernible murmur noted. Heart rate 92 bpm. Lungs reveal clear breath sounds. Breath sounds are equal bilaterally. No adventitious lung sounds including wheezes rhonchi or crackles. Room air saturation is 97 %. Abdomen soft bowel sounds are heard. No masses or tenderness. Extremities are intact. No cyanosis clubbing or edema. Skin is without rash or lesion. Neurologic examination is brief but nonfocal. - Labs CBC & Chem 7: 09/11/22 06:04 09/11/22 06:04 Labs: Abnormal Lab Results - Last 24 Hours (Table) 09/10/22 09/10/22 09/10/22 Range/Units 06:10 09:45 09:45 RBC 3.55 L (3.80-5.40) m/uL Hgb 8.9 L (11.4-16.0) gm/dL Hct 28.2 L (34.0-46.0) % MCV 79.4 L (80.0-100.0) fL MCHC (31.0-37.0) g/dL RDW 18.6 H (11.5-15.5) % Neutrophils # (1.3-7.7) k/uL Lymphocytes # 0.5 L (1.0-4.8) k/uL Sodium 135 L (137-145) mmol/L Potassium 3.1 L (3.5-5.1) mmol/L BUN 57 H (7-17) mg/dL Creatinine 1.41 H (0.52-1.04) mg/dL Glucose 187 H (74-99) mg/dL POC Glucose (mg/dL) (70-110) mg/dL Hemoglobin A1c 6.7 H (0.0-6.0) % Ionized Calcium Bessy (4.5-5.3) mg/dL AST (14-36) U/L Total Protein 5.6 L (6.3-8.2) g/dL Albumin 2.9 L (3.5-5.0) g/dL 09/10/22 09/11/22 09/11/22 Range/Units 09:48 06:04 06:04 RBC (3.80-5.40) m/uL Hgb 9.9 L (11.4-16.0) gm/dL Hct 32.5 L (34.0-46.0) % MCV (80.0-100.0) fL MCHC 30.5 L (31.0-37.0) g/dL RDW 18.8 H (11.5-15.5) % Neutrophils # 8.5 H (1.3-7.7) k/uL Lymphocytes # 0.9 L (1.0-4.8) k/uL Sodium (137-145) mmol/L Potassium 5.2 H (3.5-5.1) mmol/L BUN 40 H (7-17) mg/dL Creatinine (0.52-1.04) mg/dL Glucose (74-99) mg/dL POC Glucose (mg/dL) 190 H (70-110) mg/dL Hemoglobin A1c (0.0-6.0) % Ionized Calcium Bessy 5.4 H (4.5-5.3) mg/dL AST 53 H (14-36) U/L Total Protein (6.3-8.2) g/dL Albumin 3.0 L (3.5-5.0) g/dL Assessment and Plan Assessment: Postop day #1, status post transcatheter aortic valve replacement for severe and symptomatic aortic stenosis. History of carotid artery disease. History of hypertension. History of dyslipidemia. Obesity. Plan: Plan dated 09/10/2022. The patient is seen in the intensive care unit, room #264. Her family is in the room with her. She is receiving nasal O2 at 2 L. Saturations are 98%. She also getting lactated Ringer's 100 mL an hour. She appears to be very stable. Potassium is a bit low and will be replaced. We will follow along and make recommendations along the way. Labs, x-rays, and medications are reviewed. Plan dated 09/11/2022. The patient actually is doing very well. The patient had an uneventful night. Currently, the patient's postop day #1, status post transcatheter aortic valve replacement. She had severe and symptomatic aortic stenosis. The patient is not requiring any supplemental oxygen. The patient's not requiring any IV fluids. Labs, x-rays, and medications are all reviewed. We will continue to follow and make recommendations along the way. Time with Patient: Less than 30
--- NOTE | 2022-09-11 09:45 | CA ---
Transthoracic Echo Report Name: Kylie Carrington Age: 77 Gender: F : 1945 Exam Date: 09/11/2022 07:23 Exam Location: [facility] Ht (in): 60 Wt (lb): 234 Ordering Physician: Maryse Damon Attending/Referring Phys: [id number], Mar[facility] Crisis Specialist Alec Erickson RDCS Procedure CPT: Indications: post TAVR Cardiac Hx: HTN; ; Obesity Technical Quality: Technically difficult study Contrast 1: Lumason Total Dose (mL): 6 Contrast 2: Total Dose (mL): MEASUREMENTS (Male / Female) Normal Values 2D ECHO LV Diastolic Diameter PLAX 4.8 cm 4.2 - 5.9 / 3.9 - 5.3 cm LV Systolic Diameter PLAX 1.8 cm LV Fractional Shortening PLAX 63.8 % IVS Diastolic Thickness 1.2 cm 0.6 - 1.0 / 0.6 - 0.9 cm IVS Systolic Thickness 2.0 cm LVPW Diastolic Thickness 1.5 cm 0.6 - 1.0 / 0.6 - 0.9 cm LVPW Systolic Thickness 1.6 cm LV Relative Wall Thickness 0.6 RV Internal Dim ED PLAX 4.1 cm LVOT Diameter 2.0 cm LV Diastolic Volume MOD 4C 145.4 cm??? LV Systolic Volume MOD 4C 37.9 cm??? LV Ejection Fraction MOD 4C 73.9 % LV Stroke Volume MOD 4C 107.4 cm??? LV Diastolic Length 4C 8.3 cm LV Systolic Length 4C 6.4 cm LV Diastolic Volume MOD 2C 84.0 cm??? LV Diastolic Length 2C 6.9 cm Ascending Aorta Diameter 2.3 cm M-MODE Aortic Root Diameter MM 2.7 cm DOPPLER AV Peak Velocity 192.4 cm/s AV Peak Gradient 14.8 mmHg LVOT Peak Velocity 130.4 cm/s LVOT Peak Gradient 6.8 mmHg AV Area Cont Eq pk 2.1 cm??? MV Deceleration [place] 426.0 cm/s??? Mitral E Point Velocity 101.2 cm/s Mitral A Point Velocity 122.6 cm/s Mitral E to A Ratio 0.8 MV Deceleration Time 237.7 ms MV E' Velocity 7.8 cm/s Mitral E to MV E' Ratio 12.9 TR Peak Velocity 307.5 cm/s TR Peak Gradient 37.8 mmHg Right Ventricular Systolic Press 47.8 mmHg PV Peak Velocity 88.4 cm/s PV Peak Gradient 3.1 mmHg FINDINGS Left Ventricle Left ventricular ejection fraction is estimated at 55-60 %. Borderline left ventricular hypertrophy. Grade 1 diastolic dysfunction. Hyperdynamic left ventricular systolic function. Right Ventricle Mild right ventricular dilatation. RVSP_ 48 mm Hg. Right Atrium Normal right atrial size. Left Atrium Left atrial dilatation. Mitral Valve Mitral valve thickened. Mild mitral regurgitation. Aortic Valve Normally functioning Devon #3 bioprosthetic aortic valve without stenosis with a peak velocity of 192.4 m/s, peak gradient 14.8 mmHg, mean gradient mmHg, and estimated aortic valve area of 21 cm???. Tricuspid Valve [id number] tricuspid regurgitation. Pulmonic Valve Pulmonic valve not well visualized. Pericardium Normal pericardium. Echo free space anterior to the right ventricle likely represents a fat pad. Aorta Normal size aortic root and proximal ascending aorta. CONCLUSIONS Hyperdynamic LV function, Definity contrast used Status post aortic valve replacement, percutaneous with minimal paravalvular leak Normal gradients across the aortic valve Mild RV enlargement Previewed by: Dr. Gray Huynh MD (Electronically Signed) Final Date: 11 September 2022 09:43
--- NOTE | 2022-09-11 10:03 | XR ---
EXAMINATION TYPE: XR chest 1V portable DATE OF EXAM: 09/11/2022 COMPARISON: 09/10/2022 INDICATION: Postop cardiac surgery TECHNIQUE: Single frontal view of the chest is obtained. FINDINGS: The heart size is enlarged. The pulmonary vasculature is normal. Small right pleural effusion is present. Post cardiac valve surgery evident. IMPRESSION: 1. Small right pleural effusion. 2. Cardiomegaly
[2022-09-11 11:04] VITALS: BMI 45.7
[2022-09-11 12:12] VITALS: BP 98/42; PULSE 81; RESP 12
--- NOTE | 2022-09-11 12:45 | P.DS ---
Providers Date of admission: 09/10/22 05:53 Expected date of discharge: 09/11/22 Attending physician: Massimo Beal DO Consults: 09/10/22 09:41 Consult Physician Routine Consulting Provider: Geovani Irving Consult Reason/Comments: Route Service Manager Consult: post cardiac surgery Do you want consulting provider notified?: Yes Consult Physician Routine Consulting Provider: William Herman Consult Reason/Comments: post TAVR Do you want consulting provider notified?: Already Contacted Primary care physician: Tommy Bui MD Hospital Course: MEDICAL HISTORY: 1. Severe symptomatic aortic valve stenosis 2. Hypertension 3. Hyperlipidemia 4. Peripheral vascular disease 5. History of pneumonia 6. Congestive heart failure, NYHA symptoms III 7. Morbid obesity with a BMI of 45.7 kg/m 8. Hypothyroidism 9. Previous tobacco dependence 10. History of carotid stenosis, status post right carotid endarterectomy 11. COPD 12. Gout 13. History of breast cancer 14. Chronic anemia 15. Overactive bladder PROCEDURE: 1. Percutaneous aortic valve implantation using a 34 mm Medtronic Core-Valve Evolut-FX under RINA and fluoroscopy guidance 2. Transesophageal echocardiography performed by anesthesia 3. Ultrasound-guided access and repair of the left femoral artery access site by Perclose closure device 4. Placement of temporary pacemaker wire 5. Aortic root angiography 6. Dual-chamber pacemaker implantation, Medtronic HISTORY OF PRESENT ILLNESS: This is a 77-year-old female patient who follows on an outpatient basis with Dr. Flaherty for her primary care and Dr. Petty for her cardiology care. She has a known history of aortic valve stenosis with progressive exertional dyspnea with NYHA class symptoms II and lately class III. She had been referred to structural heart clinic for evaluation for transcatheter aortic valve replacement after heart catheterization and transthoracic echocardiogram were completed. Echocardiography demonstrated systolic function with EF 55-60%, and a peak/mean gradient 85/54 mmHg. Heart catheterization showed a normal coronary angiogram by Dr. Petty. After workup was completed an STS risk score was calculated along with incremental risk and the patient was felt to be extremely high risk for surgical aortic valve replacement, therefore transcatheter aortic valve replacement was recommended. The usual course of TAVR was discussed in detail the patient, risks and benefits were reviewed, shared decision making between cardiology, cardiac surgeon and the patient/family took place, and the patient consented to proceed with the TAVR procedure. HOSPITAL COURSE: The patient was brought to the hospital on 09/10/2022 was taken to the extended stay area, prepared in the usual fashion, and subsequently taken to the cardiac catheterization laboratory where Dr. Beal and Dr. Herman completed TAVR procedure under general anesthesia with fluoroscopy and RINA. The valve was deployed under rapid ventricular pacing and proceeded without event. At the end of the procedure there was mean gradient 8 mmHg, hemodynamics were felt to be acceptable, and there was no evidence of significant perivalvular leak. Upon completion of the procedure the patient was extubated and was transferred to the cardiovascular intensive care unit where she was recovered and monitored hemodynamically. Her oxygen was titrated down, she was tolerating an oral diet, her pain was controlled, follow-up TTE demonstrated normal left ventricular systolic function with an ejection fraction of 55-60%, minimal paravalvular leak, and acceptable hemodynamics, she was ready to be discharged to home on postoperative day #1. She received written and verbal instruction regarding her medications, activity restrictions, signs and symptoms requiring physician notification, and her follow-up appointments. Plan - Discharge Summary Discharge Rx Participant: Yes New Discharge Prescriptions: New Clopidogrel [Plavix] 75 mg PO DAILY #30 tab Continue Potassium Chloride ER [K-Dur 20] 20 meq PO DAILY Latanoprost [Xalatan 0.005%] 1 drop BOTH EYES HS allopurinoL [Zyloprim] 300 mg PO DAILY Anastrozole [Arimidex] 1 mg PO DAILY Albuterol Inhaler [Ventolin Hfa Inhaler] 2 puff INHALATION RT-Q6H PRN PRN Reason: Shortness Of Breath Levothyroxine Sodium 150 mcg PO AC-BRKFST Betamethasone Dipropionate [Betamethasone Dipropionate 0.05%] 1 applic TOPICAL BID PRN PRN Reason: Psoriasis Bisoprolol [Zebeta] 5 mg PO DAILY metOLazone [Zaroxolyn] 2.5 mg PO DAILY Mirabegron [Myrbetriq] 50 mg PO DAILY Fluticasone/Umeclidin/Vilanter [Trelegy Ellipta 100-62.5-25] 1 puff INHALATION RT-DAILY Rosuvastatin Calcium 10 mg PO DAILY Acetaminophen [Tylenol] 650 mg PO Q4H PRN PRN Reason: Pain Bumetanide [BUMEX] 1 mg PO BID Multivit-Min/Iron/Folic/Lutein [Centrum Silver Women Tablet] 1 each PO DAILY Discharge Medication List Latanoprost [Xalatan 0.005%] 1 drop BOTH EYES HS 09/12/16 [History] Potassium Chloride ER [K-Dur 20] 20 meq PO DAILY 09/12/16 [History] allopurinoL [Zyloprim] 300 mg PO DAILY 09/12/16 [History] Albuterol Inhaler [Ventolin Hfa Inhaler] 2 puff INHALATION RT-Q6H PRN 07/02/21 [History] Anastrozole [Arimidex] 1 mg PO DAILY 07/02/21 [History] Mirabegron [Myrbetriq] 50 mg PO DAILY 07/02/21 [History] Fluticasone/Umeclidin/Vilanter [Trelegy Ellipta 100-62.5-25] 1 puff INHALATION RT-DAILY 12/17/21 [History] Betamethasone Dipropionate [Betamethasone Dipropionate 0.05%] 1 applic TOPICAL BID PRN 06/29/22 [History] Levothyroxine Sodium 150 mcg PO AC-BRKFST 06/29/22 [History] Rosuvastatin Calcium 10 mg PO DAILY 06/29/22 [History] Acetaminophen [Tylenol] 650 mg PO Q4H PRN 08/01/22 [History] Bisoprolol [Zebeta] 5 mg PO DAILY 08/01/22 [History] Bumetanide [BUMEX] 1 mg PO BID 08/01/22 [History] metOLazone [Zaroxolyn] 2.5 mg PO DAILY 08/01/22 [History] Multivit-Min/Iron/Folic/Lutein [Centrum Silver Women Tablet] 1 each PO DAILY 09/08/22 [History] Clopidogrel [Plavix] 75 mg PO DAILY #30 tab 09/11/22 [Rx] Follow up Appointment(s)/Referral(s): Tommy Bui MD [Primary Care Provider] - As Needed Sushil Petty MD [STAFF PHYSICIAN] - 11/07/22 3:30 pm (Your appointment 11/07/22 is for 30 day post TAVR echo and appointment w/ Dr. Petty following your valve clinic appointment. You also have a 1 year TAVR echo and follow up appointment with Dr. Petty 4/12/24 at 1 pm after your 1 year valve clinic appointment) Masismo Beal DO [STAFF PHYSICIAN] - 09/18/22 8:45 am (Please follow-up with Dr. Beal for a groin check.) Clinic,Structural Heart [NON-STAFF] - 11/07/22 3:00 pm (Your appointment 11/07/22 is for 30 day post TAVR valve clinic follow up prior to your appointment with Dr. Petty. You also have a 1 year TAVR follow up valve clinic appointment 09/11/23 at 12:30 pm before your appointment with Dr. Petty) Ambulatory/Diagnostic Orders: Complete Blood Count w/diff [LAB.AMB] Location: None Selected Complete Blood Count w/diff [LAB.AMB] Location: None Selected Comprehensive Metabolic Panel [LAB.AMB] Location: None Selected Comprehensive Metabolic Panel [LAB.AMB] Location: None Selected Activity/Diet/Wound Care/Special Instructions: DISCHARGE INSTRUCTIONS: 1. No driving for 1 week, or until physician gives their ok. 2. No lifting, pushing, or pulling more than 5-10 pounds for 1 week. 3. Hold both groins when you cough or sneeze for the next 2 weeks. Bruising is common, but report increased swelling, pain or fever >101F 4. Shower daily. No pool, hot tub, or bathtub for 1 week 5. No powders, lotions, ointments on incisions. 6. No straining, including for bowel movements. Use stool softner if necessary 7. Stairs are not an issue. Go slowly, using handrail and take 1 step at a time. Ambulate several times daily 8. Continue pain control per as needed orders. 9. Take only the medications listed on your discharge form 10. Eat low salt (limited to 2 grams or 2000 milligrams) daily, avoid adding salt, avoid canned/processed foods 11. Take your weight daily in the morning and record, bring with you to your follow up appointments 12. Keep all follow up appointments. You will need a valve clinic appointment at 30 days and 1 year post procedure for follow up 13. You have been referred to and are expected to begin Cardiac Rehab in approximately 4 weeks. 14. You will need antibiotics prior to any dental work, including cleanings, and any surgeries to prevent Endocarditis (bacterial infection in your heart) For any questions or concerns please call your valve coordinators: Maryse Morin @ Discharge Disposition: HOME SELF-CARE
[2022-09-11] MEDS ORDERED: SENNOSIDES-DOCUSATE SODIUM 1 EACH TAB PO SCH (21:00)
== END 2022-09-11 14:54 | disposition home or self-care (01) | DRG 267 ==
LOC: 2ORMAIN 05:53 → 2SICU 09:17
PROVIDERS: ADMIT Internal Medicine; ATTEND Internal Medicine
PROC: B4101ZZ Fluoroscopy of Abdominal Aorta using Low Osmolar Contrast (ICD-10-PCS; 2022-09-10)
PROC: B24BZZ4 Ultrasonography of Heart with Aorta, Transesophageal (ICD-10-PCS; 2022-09-10)
PROC: 02RF3JZ Replacement of Aortic Valve with Synthetic Substitute, Percutaneous Approach (ICD-10-PCS; principal; 2022-09-10 08:00)
PROC: 5A1223Z Performance of Cardiac Pacing, Continuous (ICD-10-PCS; 2022-09-10 08:00)
DX: I35.0 Nonrheumatic aortic (valve) stenosis (principal); Z68.42 Body mass index [BMI] 45.0-49.9, adult; I11.0 Hypertensive heart disease with heart failure; I50.9 Heart failure, unspecified; E78.5 Hyperlipidemia, unspecified; I73.9 Peripheral vascular disease, unspecified; E66.01 Morbid (severe) obesity due to excess calories; E03.9 Hypothyroidism, unspecified; J44.9 Chronic obstructive pulmonary disease, unspecified; D64.9 Anemia, unspecified; N32.81 Overactive bladder; M10.9 Gout, unspecified; Z82.49 Family history of ischemic heart disease and other diseases of the circulatory system; Z85.038 Personal history of other malignant neoplasm of large intestine; Z85.3 Personal history of malignant neoplasm of breast; Z87.891 Personal history of nicotine dependence; Z87.01 Personal history of pneumonia (recurrent); Z86.79 Personal history of other diseases of the circulatory system; Z79.899 Other long term (current) drug therapy; Z79.890 Hormone replacement therapy; Z79.811 Long term (current) use of aromatase inhibitors; Z79.51 Long term (current) use of inhaled steroids; Z88.1 Allergy status to other antibiotic agents; Z91.040 Latex allergy status; Z91.041 Radiographic dye allergy status; Z88.8 Allergy status to other drugs, medicaments and biological substances; Z88.5 Allergy status to narcotic agent; Z91.013 Allergy to seafood
CPT/HCPCS: 33210; 33361; 71045; 80048; 80053; 82330; 83036; 83735; 84132; 85025; 85347; 85610; 85730; 86850; 86900; 86901; 93306; 93312; 93320; 93325

== ENCOUNTER 2024-03-27 22:08 | Inpatient (IN) | payer MEDICARE ==
[2024-03-27] MEDS ORDERED: PNEUMONIA PROTOCOL UTILIZED 1 EACH MISC PO PRN (22:28)
--- NOTE | 2024-03-27 22:41 | ED ---
Weakness HPI - General Chief complaint: Weakness Stated complaint: Weakness/Pneumonia Time Seen by Provider: 03/27/24 22:10 Source: patient, EMS, RN notes reviewed Mode of arrival: EMS Limitations: no limitations - History of Present Illness Initial comments: This is a 79 year old female who presents to the emergency department as a transfer from [facility] for pneumonia. Patient presented to the emergency department at [facility] this morning for generalized weakness over the last few days. She had also been exhibiting a cough and some shortness of breath with exertion. However, shortness of breath is not significantly worse. She gives the example of doing laundry, in that she may be more short of breath when doing something like that. Denies any chest pain. Workup there demonstrated a multilobar pneumonia. She had been diagnosed with pneumonia a month prior to that. She was not hospitalized at that time, she was started on doxycycline outpatient. When she finished the course of antibiotics she felt like her symptoms got significantly better. She did not have any follow-up imaging to ensure resolution. [facility] reviewed her CT scan of the chest from last month and there was concern about an obstructive process contributing to recurrent pneumonia. She was subsequently transferred to our facility for recurrent multilobar pneumonia and generalized weakness in the event she needs consult with pulmonology. MD Complaint: generalized weakness - Related Data Home Medications Medication Instructions Recorded Confirmed Latanoprost [Xalatan 0.005%] 1 drop BOTH EYES HS 09/12/16 09/08/22 Potassium Chloride ER [K-Dur 20] 20 meq PO DAILY 09/12/16 09/08/22 allopurinoL [Zyloprim] 300 mg PO DAILY 09/12/16 09/10/22 Albuterol Inhaler [Ventolin Hfa 2 puff INHALATION RT-Q6H PRN 07/02/21 09/08/22 Inhaler] Anastrozole [Arimidex] 1 mg PO DAILY 07/02/21 09/10/22 Mirabegron [Myrbetriq] 50 mg PO DAILY 07/02/21 09/10/22 Fluticasone/Umeclidin/Vilanter 1 puff INHALATION RT-DAILY 12/17/21 09/10/22 [Trelegy Ellipta 100-62.5-25] Betamethasone Dipropionate 1 applic TOPICAL BID PRN 06/29/22 09/08/22 [Betamethasone Dipropionate 0.05%] Levothyroxine Sodium 150 mcg PO AC-BRKFST 06/29/22 09/10/22 Rosuvastatin Calcium 10 mg PO DAILY 06/29/22 09/08/22 Acetaminophen [Tylenol] 650 mg PO Q4H PRN 08/01/22 09/08/22 Bisoprolol [Zebeta] 5 mg PO DAILY 08/01/22 09/08/22 Bumetanide [BUMEX] 1 mg PO BID 08/01/22 09/08/22 metOLazone [Zaroxolyn] 2.5 mg PO DAILY 08/01/22 09/08/22 Multivit-Min/Iron/Folic/Lutein 1 each PO DAILY 09/08/22 09/08/22 [Centrum Silver Women Tablet] Previous Rx's Medication Instructions Recorded Clopidogrel [Plavix] 75 mg PO DAILY #30 tab 09/11/22 Allergies Allergy/AdvReac Type Severity Reaction Status Date / Time clindamycin Allergy Rash/Hives Verified 03/27/24 22:18 indomethacin Allergy Unknown Verified 03/27/24 22:18 Iodinated Contrast Media Allergy Rash/Hives/ Verified 03/27/24 22:18 [Iodinated Contrast Media - Itching Oral and] latex Allergy Rash/Hives/ Verified 03/27/24 22:18 Itching morphine Allergy Rash/Hives/ Verified 03/27/24 22:18 Itching shellfish derived [Shellfish] Allergy Rash/Hives/ Verified 03/27/24 22:18 Itching amoxicillin [From Augmentin] AdvReac Diarrhea Verified 03/27/24 22:18 clavulanic acid AdvReac Diarrhea Verified 03/27/24 22:18 [From Augmentin] Review of Systems ROS Statement: Those systems with pertinent positive or pertinent negative responses have been documented in the HPI. ROS Other: All systems not noted in ROS Statement are negative. Past Medical History Past Medical History: Asthma, Cancer, Eye Disorder, Hyperlipidemia, Hypert ension, Osteoarthritis (OA), Pneumonia, Skin Disorder, Thyroid Disorder Additional Past Medical History / Comment(s): hx. pneumonia 2022, sob, aortic valve stenosis, Colon CA-no chemo or radiation, LT breast CA-received radiation, GLAUCOMA, DVT RT LEG YEARS AGO, psoriasis, seen in local [facility] 2 weeks ago for dehydration & sinus infection, finished A/B last Thu, states they did covid test & was neg., still w/nasal congestion & phlegm History of Any Multi-Drug Resistant Organisms: None Reported Past Surgical History: Bowel Resection, Heart Catheterization, Orthopedic Surgery Additional Past Surgical History / Comment(s): colectomy, R lower lobe lung removed, LT BREAST LUMPECTOMY, COLONOSCOPY, BILAT CATARACTS REMOVED WITH LENS IMPLANTS, right knee arthroscopy Past Anesthesia/Blood Transfusion Reactions: Motion Sickness Additional Past Anesthesia/Blood Transfusion Reaction / Comment(s): no hx blood transfusion Past Psychological History: No Psychological Hx Reported Smoking Status: Former smoker - Past Family History Mother Family Medical History: Cancer, Myocardial Infarction ([place]) Father Family Medical History: Diabetes Mellitus Sister(s) Family Medical History: Cancer General Exam Limitations: no limitations General appearance: alert, in no apparent distress Head exam: Present: atraumatic, normocephalic, normal inspection Respiratory exam: Present: normal lung sounds bilaterally. Absent: respiratory distress, wheezes, rales, rhonchi, stridor Cardiovascular Exam: Present: regular rate, normal rhythm, normal heart sounds. Absent: systolic murmur, diastolic murmur, rubs, gallop, clicks Neurological exam: Present: alert, oriented X3, CN II-XII intact Psychiatric exam: Present: normal affect, normal mood Skin exam: Present: warm, dry, intact, normal color. Absent: rash Course Vital Signs 03/27/24 03/27/24 22:10 23:47 Temperature 99.2 F Pulse Rate 88 80 Respiratory 18 20 Rate Blood Pressure 115/65 111/50 O2 Sat by Pulse 94 L 95 Oximetry Medical Decision Making - Medical Decision Making This is a 79 year old female who presents to the emergency department for weakness and pneumonia. Was pt. sent in by a medical professional or institution? @ -[facility] Did you speak to anyone other than the patient for history? @ -No Did you review nursing and triage notes? @ -Yes, and I agree, it is accurate with regards to the patient's symptoms. Were old charts reviewed? @ Documentation and Testing from [facility]: -WBC: 11.3. -Negative COVID, influenza, and RSV testing -CT Chest/Abd/Pelvis: large consolidation with air bronchograms in the posterior aspect of the right upper and lower lobe. Multiple enlarged mediastinal lymph nodes measuring up to 13 mm. Differential Diagnosis? @ -Differential Weakness: Hypoglycemia, shock, sepsis, hyponatremia, anemia, infection, [place], ETOH, adverse medicine reaction, overdose, stroke, this is not meant to be an all-inclusive l ist. EKG interpreted by me (3pts min.)? @ -EKG interpreted by me demonstrating the following: Sinus rhythm. Ventricular rate 90 bpm, MO interval 181 ms, QRS duration 98 ms, QTc 387 ms. X-rays interpreted by me (1pt min.)? @ -Chest x-ray obtained. My interpretation identifies right lung opacities. CT interpreted by me (1pt min.)? @ -Not obtained U/S interpreted by me (1pt. min.)? @ -Not obtained What testing was considered but not performed? (CT, X-rays, U/S, labs)? Why? @ -None What meds were considered but not given? Why? @ -None Did you discuss the management of the patient with other professionals? @ -Yes, Dr. Bui, who accepts the patient for admission. Did you reconcile home meds? @ -No Was smoking cessation discussed for >3mins.? @ -No Was critical care preformed (if so, how long)? @ -No Were there social determinants of health that impacted care today? How? (Homelessness, low income, unemployed, alcoholism, drug addiction, transportation, low edu. Level, literacy, decrease access to med. care, snf, rehab)? @ -No Was there de-escalation of care discussed even if they declined? (Discuss DNR or withdrawal of care, Hospice)? @ -No What co-morbidities impacted this encounter? (DM, HTN, Smoking, COPD, CAD, Cancer, CVA, Hep., AIDS, mental health diagnosis, sleep apnea, morbid obesity)? @ -Asthma, HTN, HLD Was patient admitted / discharged? @ -Admitted. Outside documentation from [facility] reviewed. White blood cell count was 11.3. COVID, influenza, and RSV testing negative. Urinalysis was negative for signs of infection. CT scan of the chest, abdomen, and pelvis demonstrated large consolidations in the air bronchograms in the posterior aspect of the right upper and lower lobe with reactive lymphadenopathy. No acute process in the abdomen or pelvis was identified. Repeat lab work here demonstrates a white blood cell count of 11.2. CRP elevated at 12.4. We did also obtain a baseline x-ray at our facility demonstrating widespread right lung airspace opacities. Patient admitted to medicine for recurrent pneumonia and weakness. Blood and sputum cultures obtained. She was started on the pneumonia protocol with ceftriaxone and azithromycin. Consult placed for pulmonology and infectious disease. Case discussed with ED attending Dr. Ochoa. Undiagnosed new problem with uncertain prognosis? @ -None Drug Therapy requiring intensive monitoring for toxicity (Heparin, Nitro, Insulin, Cardizem)? @ -None Were any procedures done? @ -None Diagnosis/symptom? @ -Recurrent pneumonia, weakness Acute, or Chronic, or Acute on Chronic? @ -Acute Uncomplicated (without systemic symptoms) or Complicated (systemic symptoms)? @ -Complicated Side effects of treatment? @ -None Exacerbation, Progression, or Severe Exacerbation] @ -Not applicable Poses a threat to life or bodily function? @ -Yes, worsening infection can become life threatening - Lab Data Result diagrams: 03/27/24 22:40 03/27/24 22:40 Lab Results 03/27/24 03/27/24 03/27/24 Range/Units 22:40 22:40 22:40 WBC 11.2 H (3.8-10.6) k/uL RBC 3.80 (3.80-5.40) m/uL Hgb 11.1 L (11.4-16.0) gm/dL Hct 35.1 (34.0-46.0) % MCV 92.2 (80.0-100.0) fL MCH 29.3 (25.0-35.0) pg MCHC 31.8 (31.0-37.0) g/dL RDW 16.3 H (11.5-15.5) % Plt Count 328 (150-450) k/uL MPV 6.9 Neutrophils % 83 % Lymphocytes % 9 % Monocytes % 5 % Eosinophils % 1 % Basophils % 0 % Neutrophils # 9.3 H (1.3-7.7) k/uL Lymphocytes # 1.0 (1.0-4.8) k/uL Monocytes # 0.5 (0-1.0) k/uL Eosinophils # 0.2 (0-0.7) k/uL Basophils # 0.0 (0-0.2) k/uL Anisocytosis Slight PT 11.1 (10.0-12.5) sec INR 1.0 (<1.2) APTT 27.3 (22.0-30.0) sec Sodium 137 (137-145) mmol/L Potassium 3.6 (3.5-5.1) mmol/L Chloride 103 (98-107) mmol/L Carbon Dioxide 28 (22-30) mmol/L Anion Gap 6 mmol/L BUN 20 H (7-17) mg/dL Creatinine 0.97 (0.52-1.04) mg/dL Est GFR (CKD-EPI)AfAm 65 (>60 ml/min/1.73 sqM) Est GFR (CKD-EPI)NonAf 56 (>60 ml/min/1.73 sqM) Glucose 96 (74-99) mg/dL Calcium 8.9 (8.4-10.2) mg/dL Total Bilirubin 0.5 (0.2-1.3) mg/dL AST 23 (14-36) U/L ALT 15 (4-34) U/L Alkaline Phosphatase 95 (38-126) U/L Troponin I (0.000-0.034) ng/mL C-Reactive Protein 12.4 H (<1.0) mg/dL Total Protein 6.4 (6.3-8.2) g/dL Albumin 3.5 (3.5-5.0) g/dL 03/27/24 Range/Units 22:40 WBC (3.8-10.6) k/uL RBC (3.80-5.40) m/uL Hgb (11.4-16.0) gm/dL Hct (34.0-46.0) % MCV (80.0-100.0) fL MCH (25.0-35.0) pg MCHC (31.0-37.0) g/dL RDW (11.5-15.5) % Plt Count (150-450) k/uL MPV Neutrophils % % Lymphocytes % % Monocytes % % Eosinophils % % Basophils % % Neutrophils # (1.3-7.7) k/uL Lymphocytes # (1.0-4.8) k/uL Monocytes # (0-1.0) k/uL Eosinophils # (0-0.7) k/uL Basophils # (0-0.2) k/uL Anisocytosis PT (10.0-12.5) sec INR (<1.2) APTT (22.0-30.0) sec Sodium (137-145) mmol/L Potassium (3.5-5.1) mmol/L Chloride (98-107) mmol/L Carbon Dioxide (22-30) mmol/L Anion Gap mmol/L BUN (7-17) mg/dL Creatinine (0.52-1.04) mg/dL Est GFR (CKD-EPI)AfAm (>60 ml/min/1.73 sqM) Est GFR (CKD-EPI)NonAf (>60 ml/min/1.73 sqM) Glucose (74-99) mg/dL Calcium (8.4-10.2) mg/dL Total Bilirubin (0.2-1.3) mg/dL AST (14-36) U/L ALT (4-34) U/L Alkaline Phosphatase (38-126) U/L Troponin I 0.015 (0.000-0.034) ng/mL C-Reactive Protein (<1.0) mg/dL Total Protein (6.3-8.2) g/dL Albumin (3.5-5.0) g/dL - Radiology Data Radiology results: report reviewed, image reviewed Disposition Clinical Impression: Recurrent pneumonia, Weakness Disposition: ADMITTED IP TO THIS HOSP
[2024-03-27] MEDS ORDERED: ACETAMINOPHEN TAB 325 MG TAB PO PRN (22:51)
[2024-03-27] MEDS ORDERED: NALOXONE 0.4 MG/ML 1 ML VIAL IV PRN (22:51)
[2024-03-27] MEDS ORDERED: HYDROcodone/APAP 5-325MG 1 EACH TAB PO PRN (22:51)
[2024-03-27] MEDS ORDERED: ONDANSETRON 4 MG/2 ML VIAL IVP PRN (22:51)
[2024-03-27 23:00] LABS: Anisocytosis Slight; Basophils % (A) 0 %; Eosinophils # (A) 0.2 k/uL (0-0.7); Eosinophils % (A) 1 %; HCT 35.1 % (34.0-46.0); HGB 11.1 gm/dL (11.4-16.0); Lymphocytes % (A) 9 %; MCH 29.3 pg (25.0-35.0); MCHC 31.8 g/dL (31.0-37.0); MCV 92.2 fL (80.0-100.0); Mean Platelet Volume 6.9; Monocytes # (A) 0.5 k/uL (0-1.0); Monocytes % (A) 5 %; Neutrophils # (A) 9.3 k/uL (1.3-7.7); Neutrophils % (A) 83 %; Platelet Count 328 k/uL (150-450); RDW 16.3 % (11.5-15.5); WBC 11.2 k/uL (3.8-10.6)
[2024-03-27 23:09] LABS: Partial Thromboplastin Time 27.3 sec (22.0-30.0); Prothrombin Time 11.1 sec (10.0-12.5)
[2024-03-27 23:18] LABS: ALT 15 U/L (4-34); AST 23 U/L (14-36); African American GFR (CKD) 65 (>60 ml/min/1.73 sqM); Albumin 3.5 g/dL (3.5-5.0); Alkaline Phosphatase 95 U/L (38-126); Anion Gap 6 mmol/L; Blood Urea Nitrogen 20 mg/dL (7-17); Calcium 8.9 mg/dL (8.4-10.2); Carbon Dioxide 28 mmol/L (22-30); Chloride 103 mmol/L (98-107); Glucose 96 mg/dL (74-99); Non-African American GFR(CKD) 56 (>60 ml/min/1.73 sqM); Potassium 3.6 mmol/L (3.5-5.1); Sodium 137 mmol/L (137-145); Total Bilirubin 0.5 mg/dL (0.2-1.3); Total Protein 6.4 g/dL (6.3-8.2)
[2024-03-27 23:31] LABS: C Reactive Protein 12.4 mg/dL (<1.0)
--- NOTE | 2024-03-28 00:21 | XR ---
EXAM: XR Chest, 2 Views CLINICAL HISTORY: ITS.REASON XR Reason: HARVEY, known pneumonia TECHNIQUE: Frontal and lateral views of the chest. COMPARISON: 09/11/22 FINDINGS: Lungs: Widespread right lung airspace opacities. Right basilar subsegmental atelectasis. Left lung appears clear. Pleural space: Blunting of the right costophrenic angle suggesting small effusion. Heart: Stable cardiomegaly. Status post TAVR. Bones/joints: No acute fracture. No dislocation. IMPRESSION: 1. Widespread right lung airspace opacities. Appearance raises concern for pneumonia. 2. Blunting of the right costophrenic angle suggesting small effusion.
[2024-03-28] MEDS: AZITHROMYCIN 500 MG in SODIUM CHLORIDE 0.9% 250 ML IVPB STA (00:25)
[2024-03-28] MEDS ORDERED: IPRATROPIUM-ALBUTEROL 3 ML NEB INHALATION PRN ×2 (00:38→08:15)
[2024-03-28] MEDS: guaiFENesin 600 MG TABLET.ER PO STA (00:41)
--- NOTE | 2024-03-28 04:57 | P.CNPUL ---
History of Present Illness Consult date: 03/28/24 Requesting physician: Yulisa Luna Reason for consult: pneumonia Chief complaint: Productive cough, generalized weakness, reduced appetite History of present illness: Patient is a 79-year-old female with past medical history significant for asthma, previous right lung wedge resection, hypertension, hyperlipidemia, aortic valve stenosis status post TAVR, colon cancer status post bowel resect ion, left breast cancer status post radiation, and remote history of tobacco use. Primary care provider is Dr. Mitchell. She was transferred from [facility] last night with a diagnosis of pneumonia. Of note, recently treated outpatient for pneumonia approximately 1 month ago. She completed her course of doxycycline. Initially felt better. Over the last few days, however, she has been complaining of worsening generalized weakness and poor oral intake. Admits short of breath with exertion and normal daily tasks. Associated productive cough with yellow to green phlegm. Denies hemoptysis. Denies chest pain, but does report left lateral back pain No measured fevers. Denies weight loss. States that her daughter that she lives with had URI-like symptoms approximately 1 week ago. Did test negative for COVID, RSV, influenza at the outside facility. Nonenhanced CT of the chest done at outside facility showing a large consolidation in the posterior aspect of the right upper lobe and right lower lobe with air bronchograms. Multiple enlarged mediastinal lymph nodes, possibly reactive. CBC: WBC count 11.2, hemoglobin 11.1, hematocrit 35.1, platelets 328. CMP: Sodium 137, potassium 3.6, chloride 103, serum bicarb 28, BUN 20, creatinine 0.97, glucose 96. Lactic 0.7. LFTs unremarkable. Troponin 0.015. Patient currently resting comfortably in bed, on room air, no acute d istress. Nontoxic appearance. Afebrile. Vitals are stable. She is empirically covered on a combination of azithromycin and Rocephin. Family present. Review of Systems Constitutional: Reports fatigue, Reports poor appetite, Reports weakness, Denies chills, Denies fever, Denies weight gain, Denies weight loss Ears, nose, mouth and throat: Reports nasal congestion, Reports post-nasal drip, Reports sore throat, Denies dysphagia, Denies headache, Denies nasal discharge, Denies neck fullness/pressure Cardiovascular: Reports dyspnea on exertion, Denies chest pain, Denies leg edema, Denies orthopnea, Denies palpitations, Denies paroxysmal nocturnal dyspnea Respiratory: Reports as per HPI Gastrointestinal: Reports loss of appetite, Denies abdominal pain, Denies change in bowel habits, Denies nausea, Denies vomiting Genitourinary: Denies dysuria, Denies flank pain Musculoskeletal: Denies limitation of motion Integumentary: Denies rash Neurological: Denies seizures, Denies syncope Psychiatric: Denies anxiety, Denies depression Past Medical History Past Medical History: Asthma, Cancer, Eye Disorder, Hyperlipidemia, Hypertension, Osteoarthritis (OA), Pneumonia, Skin Disorder, Thyroid Disorder Additional Past Medical History / Comment(s): hx. pneumonia 2022, sob, aortic valve stenosis, Colon CA-no chemo or radiation, LT breast CA-received radiation, GLAUCOMA, DVT RT LEG YEARS AGO, psoriasis, seen in local [facility] 2 weeks ago for dehydration & sinus infection, finished A/B last Thu, states they did covid test & was neg., still w/nasal congestion & phlegm History of Any Multi-Drug Resistant Organisms: None Reported Past Surgical History: Bowel Resection, Heart Catheterization, Orthopedic Surgery Additional Past Surgical History / Comment(s): colectomy, R lower lobe lung removed, LT BREAST LUMPECTOMY, COLONOSCOPY, BILAT CATARACTS REMOVED WITH LENS IMPLANTS, right knee arthroscopy Past Anesthesia/Blood Transfusion Reactions: Motion Sickness Additional Past Anesthesia/Blood Transfusion Reaction / Comment(s): no hx blood transfusion Past Psychological History: No Psychological Hx Reported Smoking Status: Former smoker - Past Family History Mother Family Medical History: Cancer, Myocardial Infarction ([place]) Father Family Medical History: Diabetes Mellitus Sister(s) Family Medical History: Cancer Medications and Allergies Home Medications Medication Instructions Recorded Confirmed Type Latanoprost [Xalatan 0.005%] 1 drop BOTH EYES HS 09/12/16 09/08/22 History Potassium Chloride ER [K-Dur 20] 20 meq PO DAILY 09/12/16 09/08/22 History allopurinoL [Zyloprim] 300 mg PO DAILY 09/12/16 09/10/22 History Albuterol Inhaler [Ventolin Hfa 2 puff INHALATION RT-Q6H PRN 07/02/21 09/08/22 History Inhaler] Anastrozole [Arimidex] 1 mg PO DAILY 07/02/21 09/10/22 History Mirabegron [Myrbetriq] 50 mg PO DAILY 07/02/21 09/10/22 History Fluticasone/Umeclidin/Vilanter 1 puff INHALATION RT-DAILY 12/17/21 09/10/22 History [Treleerin Ellipta 100-62.5-25] Betamethasone Dipropionate 1 applic TOPICAL BID PRN 06/29/22 09/08/22 History [Betamethasone Dipropionate 0.05%] Levothyroxine Sodium 150 mcg PO AC-BRKFST 06/29/22 09/10/22 History Rosuvastatin Calcium 10 mg PO DAILY 06/29/22 09/08/22 History Acetaminophen [Tylenol] 650 mg PO Q4H PRN 08/01/22 09/08/22 History Bisoprolol [Zebeta] 5 mg PO DAILY 08/01/22 09/08/22 History Bumetanide [BUMEX] 1 mg PO BID 08/01/22 09/08/22 History metOLazone [Zaroxolyn] 2.5 mg PO DAILY 08/01/22 09/08/22 History Multivit-Min/Iron/Folic/Lutein 1 each PO DAILY 09/08/22 09/08/22 History [Centrum Silver Women Tablet] Clopidogrel [Plavix] 75 mg PO DAILY #30 tab 09/11/22 Rx Allergies Allergy/AdvReac Type Severity Reaction Status Date / Time clindamycin Allergy Rash/Hives Verified 03/27/24 22:18 indomethacin Allergy Unknown Verified 03/27/24 22:18 Iodinated Contrast Media Allergy Rash/Hives/ Verified 03/27/24 22:18 [Iodinated Contrast Media - Itching Oral and] latex Allergy Rash/Hives/ Verified 03/27/24 22:18 Itching morphine Allergy Rash/Hives/ Verified 03/27/24 22:18 Itching shellfish derived [Shellfish] Allergy Rash/Hives/ Verified 03/27/24 22:18 Itching amoxicillin [From Augmentin] AdvReac Diarrhea Verified 03/27/24 22:18 clavulanic acid AdvReac Diarrhea Verified 03/27/24 22:18 [From Augmentin] Physical Exam Vitals: Vital Signs Temp Pulse Resp BP Pulse Ox 03/27/24 23:47 80 20 111/50 95 03/27/24 22:10 99.2 F 88 18 115/65 94 L Intake and Output 03/27/24 03/27/24 03/28/24 14:59 22:59 06:59 Other: Weight 97.522 kg GENERAL EXAM: Alert, obese 79-year-old white female, nontoxic appearance, comfortable in no apparent distress. HEAD: Normocephalic and atraumatic EYES: Normal reaction of pupils, equal size. NOSE: Clear with pink turbinates. THROAT: No erythema or exudates. NECK: No masses, no JVD. CHEST: No chest wall deformity. LUNGS: Equal air entry with scattered expiratory wheezing. On room air. No conversational dyspnea or accessory muscle use.. CVS: S1 and S2 normal with no audible murmur, regular rhythm. No extra heart sounds ABDOMEN: No hepatosplenomegaly, active bowel sounds, no guarding or rigidity. SPINE: No scoliosis or deformity SKIN: No rashes CENTRAL NERVOUS SYSTEM: No focal deficits, tone is normal in all 4 extremities. EXTREMITIES: There is no peripheral edema, clubbing, or cyanosis. Peripheral pulses are intact. Results - Laboratory Findings CBC and BMP: 03/27/24 22:40 03/27/24 22:40 PT/INR, D-dimer PT 11.1 sec (10.0-12.5) 03/27/24 22:40 INR 1.0 (<1.2) 03/27/24 22:40 Abnormal lab findings: Abnormal Labs 03/27/24 03/27/24 22:40 22:40 WBC 11.2 H Hgb 11.1 L RDW 16.3 H Neutrophils # 9.3 H BUN 20 H C-Reactive Protein 12.4 H - Diagnostic Findings Chest x-ray: image reviewed CT scan - chest: image reviewed Assessment and Plan Assessment: Community-acquired right lower lobe pneumonia, Nonenhanced CT of the chest done at outside facility showing a large consolidation in the posterior aspect of the right upper lobe and right lower lobe with air bronchograms. Multiple enlarged mediastinal lymph nodes, possibly reactive. Acute exertional dyspnea, secondary to above Exacerbation of persistent bronchial asthma, secondary to above, normally maintained on Trelegy maintenance inhaler and as needed Ventolin HFA inhaler History of aortic valve stenosis status post TAVR History of hypertension History of hyperlipidemia History of colon cancer status post bowel resection History of left breast cancer status post radiation History of previous right lung wedge resection Remote history of tobacco use Obesity, with a BMI of 43.4 kg/m Plan: Patient's medications, labs, imaging reviewed On room air oxygen Continue combination of empiric antibiotics Check procalcitonin level Cannot completely exclude underlying malignancy; would recommend following until resolution Continue bronchodilators; add Symbicort inhaler and IV Solu-Medrol We will continue to follow I have personally seen and examined the patient, performed the documentation and the assessment and plan as written. Number of minutes spent on the visit:20 Time with Patient: Greater than 30
[2024-03-28] MEDS: methylPREDNISolone SOD SUCCI 125 MG/2 ML VIAL IV SCH (06:19)
[2024-03-28] MEDS ORDERED: ALBUTEROL HFA INHALER INHALATION PRN (08:15)
[2024-03-28] MEDS: IPRATROPIUM-ALBUTEROL 3 ML NEB INHALATION SCH (09:13)
[2024-03-28] MEDS: SYMBICORT 160-4.5 MCG INHALER INHALATION SCH (09:13)
[2024-03-28] MEDS: PANTOPRAZOLE 40 MG/10 ML VIAL IV SCH (09:59)
[2024-03-28] MEDS: BISOPROLOL 5 MG TAB PO SCH (09:59)
[2024-03-28] MEDS: ATORVASTATIN 20 MG TAB PO SCH (10:00)
[2024-03-28] MEDS: allopurinoL 300 MG TAB PO SCH (10:00)
[2024-03-28] MEDS: MULTIVITAMINS, THERA 1 EACH TAB PO SCH (10:00)
[2024-03-28] MEDS: POTASSIUM CHLORIDE ER 20 MEQ TAB.ER PO SCH (10:00)
[2024-03-28] MEDS: AZITHROMYCIN 500 MG TAB PO SCH (10:00)
[2024-03-28] MEDS: CLOPIDOGREL 75 MG TAB PO SCH (10:00)
[2024-03-28] MEDS: FLUTICASONE NASAL 50MCG/SPRAY 16GM BTL EA NOSTRIL SCH (10:00)
[2024-03-28] MEDS: ANASTROZOLE 1 MG TAB PO SCH (10:00)
[2024-03-28] MEDS: BUMETANIDE 1 MG TAB PO SCH (10:00)
[2024-03-28] MEDS: NON FORMULARY DRUG (Mirabegron [Myrbetriq] 50 MG Tablet) PO SCH (10:06)
[2024-03-28] MEDS ORDERED: HYDROCORTISONE 1% CREAM 30 GM TUBE TOPICAL PRN (11:35)
--- NOTE | 2024-03-28 11:51 | P.HPIM ---
History of Present Illness History of present illness; 79-year-old female with a past medical history of asthma, hyperlipidemia, hypertension, OA, recent history of pneumonia (1 month ago), psoriasis, hypothyroidism, and COPD (no home O2) presents with increased shortness of breath and productive cough. Patient reports for the last few days she has noticed her shortness of breath has been worse than usual even with her history of COPD. Patient also reports she has been having productive cough with green-colored sputum. Patient reports she lives at home with her daughter and son-in-law who both recently tested positive for COVID. Patient reports she tested herself and was negative. Initial lab work from the ER was significant for WBC 11.2, hemoglobin 9.1, MCV 92.2, neutrophils 9.3, sodium 137, testing 3.6, bicarb 28, creatinine 0.97, troponin 0.015, CRP 12.4, BNP 2000, and procalcitonin 0.19. EKG done in the ER showed heart rate of 90 bpm, no ST segment elevation or depression seen, no T-wave inversions seen. Sinus rhythm, QTc 387 ER CXR: Widespread right lung airspace opacities. Blunting of the right costophrenic angle. Patient admitted to internal medicine service REVIEW OF SYSTEMS: CONSTITUTIONAL: No fever, no malaise, no fatigue. HEENT: No recent visual problems or hearing problems. Denied any sore throat. CARDIOVASCULAR: No chest pain, orthopnea, PND, no palpitations, no syncope. PULMONARY: No shortness of breath, no cough, no hemoptysis. GASTROINTESTINAL: No diarrhea, no nausea, no vomiting, no abdominal pain. NEUROLOGICAL: No headaches, no weakness, no numbness. HEMATOLOGICAL: Denies any bleeding or petechiae. GENITOURINARY: Denies any burning micturition, frequency, or urgency. MUSCULOSKELETAL/RHEUMATOLOGICAL: Denies any joint pain, swelling, or any muscle pain. ENDOCRINE: Denies any polyuria or polydipsia. The rest of the 14-point review of systems is negative. PHYSICAL EXAMINATION: GENERAL: The patient is alert and oriented x3, not in any acute distress. Well developed, well nourished. HEENT: Pupils are round and equally reacting to light. EOMI. No scleral icterus. No conjunctival pallor. Normocephalic, atraumatic. No pharyngeal erythema. No thyromegaly. CARDIOVASCULAR: S1 and S2 present. No murmurs, rubs, or gallops. PULMONARY: Chest is clear to auscultation b/l, no wheezing or crackles. ABDOMEN: Soft, nontender, nondistended, normoactive bowel sounds. No palpable organomegaly. MUSCULOSKELETAL: No joint swelling or deformity. EXTREMITIES: No cyanosis, clubbing, or pedal edema. NEUROLOGICAL: Gross neurological examination did not reveal any focal deficits. SKIN: No rashes. Assessment & Plan: Acute: #Community-acquired pneumonia: Recent history of pneumonia treated outpatient with antibiotics Continue Rocephin 2 g IVPB every 24 hours and Zithromax 500 mg p.o. daily (day 1) Pending sputum, Legionella, and blood culture Continue to monitor for worsening signs of infection #Exanthem: Located across the upper chest Ordered hydrocortisone cream 1% topical twice daily as needed Chronic: #Hypertension: Continue home medications #Hyperlipidemia: Continue Lipitor 20 mg p.o. daily #Psoriasis: Continue home betamethasone dipropionate 15 gm ointment #COPD Continue home medications #Hypothyroidism #OA F: None E: None N: Healthy diet A: Normally ambulates unassisted at home DVT ppx: Lovenox 40 SQ daily GI ppx: Protonix 40 mg IV daily Dispo: Pending clinical course, potentially can be discharged in the next 24 hours if respiratory symptoms continue to improve Amanda Gonzalez MD PGY-1 FM Dictation was produced using webtide dictation software. please excuse any grammatical, word or spelling errors. Past Medical History Past Medical History: Asthma, Cancer, Eye Disorder, Hyperlipidemia, Hypertension, Osteoarthritis (OA), Pneumonia, Skin Disorder, Thyroid Disorder Additional Past Medical History / Comment(s): hx. pneumonia 2022, sob, aortic valve stenosis, Colon CA-no chemo or radiation, LT breast CA-received radiation, GLAUCOMA, DVT RT LEG YEARS AGO, psoriasis, seen in local EC 2 weeks ago for dehydration & sinus infection, finished A/B last Thu, states they did covid test & was neg., still w/nasal congestion & phlegm History of Any Multi-Drug Resistant Organisms: None Reported Past Surgical History: Bowel Resection, Heart Catheterization, Orthopedic Surgery Additional Past Surgical History / Comment(s): colectomy, R lower lobe lung removed, LT BREAST LUMPECTOMY, COLONOSCOPY, BILAT CATARACTS REMOVED WITH LENS IMPLANTS, right knee arthroscopy Past Anesthesia/Blood Transfusion Reactions: Motion Sickness Additional Past Anesthesia/Blood Transfusion Reaction / Comment(s): no hx blood transfusion Past Psychological History: No Psychological Hx Reported Smoking Status: Former smoker - Past Family History Mother Family Medical History: Cancer, Myocardial Infarction ([place]) Father Family Medical History: Diabetes Mellitus Sister(s) Family Medical History: Cancer Medications and Allergies Home Medications Medication Instructions Recorded Confirmed Type Latanoprost [Xalatan 0.005%] 1 drop BOTH EYES HS 09/12/16 03/28/24 History Potassium Chloride ER [K-Dur 20] 20 meq PO DAILY 09/12/16 03/28/24 History allopurinoL [Zyloprim] 300 mg PO DAILY 09/12/16 03/28/24 History Albuterol Inhaler [Ventolin Hfa 2 puff INHALATION RT-Q6H PRN 07/02/21 03/28/24 History Inhaler] Anastrozole [Arimidex] 1 mg PO DAILY 07/02/21 03/28/24 History Mirabegron [Myrbetriq] 50 mg PO DAILY 07/02/21 03/28/24 History Fluticasone/Umeclidin/Vilanter 1 puff INHALATION RT-DAILY 12/17/21 03/28/24 H istory [Trelegy Ellipta 100-62.5-25] Betamethasone Dipropionate 1 applic TOPICAL BID PRN 06/29/22 03/28/24 History [Betamethasone Dipropionate 0.05%] Levothyroxine Sodium 150 mcg PO AC-BRKFST 06/29/22 03/28/24 History Bisoprolol [Zebeta] 5 mg PO DAILY 08/01/22 03/28/24 History Bumetanide [BUMEX] 1 mg PO BID 08/01/22 03/28/24 History Multivit-Min/Iron/Folic/Lutein 1 each PO DAILY 09/08/22 03/28/24 History [Centrum Silver Women Tablet] Clopidogrel [Plavix] 75 mg PO DAILY #30 tab 09/11/22 03/28/24 Rx Fluticasone Nasal Raccoon [Flonase 2 spray EA NOSTRIL DAILY 03/28/24 03/28/24 History Nasal Raccoon] Ipratropium-Albuterol Nebulize 3 ml INHALATION RT-Q4H PRN 03/28/24 03/28/24 History [Duoneb 0.5 mg-3 mg/3 ml Soln] Rosuvastatin [Crestor] 10 mg PO DAILY 03/28/24 03/28/24 History Allergies Allergy/AdvReac Type Severity Reaction Status Date / Time clindamycin Allergy Rash/Hives/Abdominal Verified 03/28/24 07:36 Pain indomethacin Allergy Unknown Verified 03/28/24 07:36 Iodinated Contrast Media Allergy Rash/Hives/ Verified 03/28/24 07:36 [Iodinated Contrast Media - Itching Oral and] iodine Allergy Rash/Hives/ Verified 03/28/24 07:36 Itching latex Allergy Rash/Hives/ Verified 03/28/24 07:36 Itching morphine Allergy Rash/Hives/ Verified 03/28/24 07:36 Itching shellfish derived [Shellfish] Allergy Rash/Hives/ Verified 03/28/24 07:36 Itching amoxicillin [From Augmentin] AdvReac Nausea & Verified 03/28/24 07:36 Vomiting & Diarrhea clavulanic acid AdvReac Nausea & Verified 03/28/24 07:36 [From Augmentin] Vomiting & Diarrhea Physical Exam Vitals: Vital Signs Temp Pulse Resp BP Pulse Ox 03/28/24 09:31 76 03/28/24 09:20 72 95 03/28/24 06:15 86 18 108/52 95 03/28/24 03:54 81 18 125/53 94 L 03/27/24 23:47 80 20 111/50 95 03/27/24 22:10 99.2 F 88 18 115/65 94 L Intake and Output 03/27/24 03/28/24 03/28/24 22:59 06:59 14:59 Other: Weight 97.522 kg Results CBC & Chem 7: 03/27/24 22:40 03/27/24 22:40 Labs: Abnormal Lab Results - Last 24 Hours (Table) 03/27/24 03/27/24 Range/Units 22:40 22:40 WBC 11.2 H (3.8-10.6) k/uL Hgb 11.1 L (11.4-16.0) gm/dL RDW 16.3 H (11.5-15.5) % Neutrophils # 9.3 H (1.3-7.7) k/uL BUN 20 H (7-17) mg/dL C-Reactive Protein 12.4 H (<1.0) mg/dL
[2024-03-28 20:32] VITALS: TEMP 97.9
[2024-03-28] MEDS: LATANOPROST 0.005% OPHTH DROPS 2.5 ML BTL BOTH EYES SCH (20:40)
--- NOTE | 2024-03-28 21:41 | P.CONS ---
History of Present Illness - Reason for Consult Consult date: 03/28/24 Recurrent pneumonia Requesting physician: Yulisa Luna - Chief Complaint Shortness of breath and cough x days - History of Present Illness Patient is a 79-year-old female with a past medical history significant for hypertension hyperlipidemia osteoarthritis pneumonia history of colon cancer and left breast cancer, previous history of lung infection requiring right lung wedge resection however the patient is not very clear about the etiology or pathogenic agent patient presenting to the [facility] for evaluation of increasing shortness of breath that apparently has been getting worse over the last few days patient also have a cough moderate i ntensity and is bringing up some sputum no hemoptysis denies any pleuritic chest pain no nausea no vomiting no choking on the food no abdominal pain or any diarrhea patient did have a CT of the chest at the outside facility with evidence of large consolidation in the posterior aspect of the right upper lobe with air bronchogram multiple enlarged metastatic lymph nodes patient has been admitted to the hospital she was started on Rocephin and Zithromax infectious disease was consulted for further management of antibiotic therapy on presentation the hospital that she did have a low-grade fever of 99.2 F patient was not tachycardic or hypotensive no hypoxemia need for supplemental oxygen did have white count of 11.2 with a left shift creatinine 0.97 electrolytes are normal liver enzymes are normal CRP is 12.4 Pro-Kulwinder 0.19 chest x-ray widespread right lung airspace opacities concerning for pneumonia Review of Systems Positive point and negatives has been mentioned in the HPI, complete review of systems was performed and all other systems are negative Past Medical History Past Medical History: Asthma, Cancer, Eye Disorder, Hyperlipidemia, Hypertension, Osteoarthritis (OA), Pneumonia, Skin Disorder, Thyroid Disorder Additional Past Medical History / Comment(s): hx. pneumonia 2022, sob, aortic valve stenosis, Colon CA-no chemo or radiation, LT breast CA-received radiation, GLAUCOMA, DVT RT LEG YEARS AGO, psoriasis, seen in local [facility] 2 weeks ago for dehydration & sinus infection, finished A/B last Thu, states they did covid test & was neg., still w/nasal congestion & phlegm History of Any Multi-Drug Resistant Organisms: None Reported Past Surgical History: Bowel Resection, Heart Catheterization, Orthopedic Surgery Additional Past Surgical History / Comment(s): colectomy, R lower lobe lung removed, LT BREAST LUMPECTOMY, COLONOSCOPY, BILAT CATARACTS REMOVED WITH LENS IMPLANTS, right knee arthroscopy Past Anesthesia/Blood Transfusion Reactions: Motion Sickness Additional Past Anesthesia/Blood Transfusion Reaction / Comm: no hx blood transfusion Past Psychological History: No Psychological Hx Reported Smoking Status: Former smoker - Past Family History Mother Family Medical History: Cancer, Myocardial Infarction (NH) Father Family Medical History: Diabetes Mellitus Sister(s) Family Medical History: Cancer Medications and Allergies Home Medications Medication Instructions Recorded Confirmed Type Latanoprost [Xalatan 0.005%] 1 drop BOTH EYES HS 09/12/16 03/28/24 History Potassium Chloride ER [K-Dur 20] 20 meq PO DAILY 09/12/16 03/28/24 History allopurinoL [Zyloprim] 300 mg PO DAILY 09/12/16 03/28/24 History Albuterol Inhaler [Ventolin Hfa 2 puff INHALATION RT-Q6H PRN 07/02/21 03/28/24 History Inhaler] Anastrozole [Arimidex] 1 mg PO DAILY 07/02/21 03/28/24 History Mirabegron [Myrbetriq] 50 mg PO DAILY 07/02/21 03/28/24 History Fluticasone/Umeclidin/Vilanter 1 puff INHALATION RT-DAILY 12/17/21 03/28/24 H istory [Trelegy Ellipta 100-62.5-25] Betamethasone Dipropionate 1 applic TOPICAL BID PRN 06/29/22 03/28/24 History [Betamethasone Dipropionate 0.05%] Levothyroxine Sodium 150 mcg PO AC-BRKFST 06/29/22 03/28/24 History Bisoprolol [Zebeta] 5 mg PO DAILY 08/01/22 03/28/24 History Bumetanide [BUMEX] 1 mg PO BID 08/01/22 03/28/24 History Multivit-Min/Iron/Folic/Lutein 1 each PO DAILY 09/08/22 03/28/24 History [Centrum Silver Women Tablet] Clopidogrel [Plavix] 75 mg PO DAILY #30 tab 09/11/22 03/28/24 Rx Fluticasone Nasal [place] [Flonase 2 spray EA NOSTRIL DAILY 03/28/24 03/28/24 History Nasal [place]] Ipratropium-Albuterol Nebulize 3 ml INHALATION RT-Q4H PRN 03/28/24 03/28/24 History [Duoneb 0.5 mg-3 mg/3 ml Soln] Rosuvastatin [Crestor] 10 mg PO DAILY 03/28/24 03/28/24 History Allergies Allergy/AdvReac Type Severity Reaction Status Date / Time clindamycin Allergy Rash/Hives/Abdominal Verified 03/28/24 07:36 Pain indomethacin Allergy Unknown Verified 03/28/24 07:36 Iodinated Contrast Media Allergy Rash/Hives/ Verified 03/28/24 07:36 [Iodinated Contrast Media - Itching Oral and] iodine Allergy Rash/Hives/ Verified 03/28/24 07:36 Itching latex Allergy Rash/Hives/ Verified 03/28/24 07:36 Itching morphine Allergy Rash/Hives/ Verified 03/28/24 07:36 Itching shellfish derived [Shellfish] Allergy Rash/Hives/ Verified 03/28/24 07:36 Itching amoxicillin [From Augmentin] AdvReac Nausea & Verified 03/28/24 07:36 Vomiting & Diarrhea clavulanic acid AdvReac Nausea & Verified 03/28/24 07:36 [From Augmentin] Vomiting & Diarrhea Physical Exam Vitals: Vital Signs Temp Pulse Resp BP Pulse Ox 03/28/24 09:31 76 03/28/24 09:20 72 95 03/28/24 06:15 86 18 108/52 95 03/28/24 03:54 81 18 125/53 94 L 03/27/24 23:47 80 20 111/50 95 03/27/24 22:10 99.2 F 88 18 115/65 94 L Intake and Output 03/27/24 03/28/24 03/28/24 22:59 06:59 14:59 Other: Weight 97.522 kg GENERAL DESCRIPTION: Elderly female up in the bed, no distress. No tachypnea or accessory muscle of respiration use. HEENT: Shows Pallor , no scleral icterus. Oral mucous membrane is dry. No pharyngeal erythema or thrush NECK: Trachea central, no thyromegaly. LUNGS: Unlabored breathing. Decreased breath sound at the base HEART: S1, S2, regular rate and rhythm. No loud murmur ABDOMEN: Soft, no tenderness , guarding or rigidity, no organomegaly EXTREMITIES: No edema of feet. SKIN: No rash, no masses palpable. NEUROLOGICAL: The patient is awake, alert, oriented x3, mood and affect normal. Results CBC & Chem 7: 03/27/24 22:40 03/27/24 22:40 Labs: Abnormal Lab Results - Last 24 Hours (Table) 03/27/24 03/27/24 Range/Units 22:40 22:40 WBC 11.2 H (3.8-10.6) k/uL Hgb 11.1 L (11.4-16.0) gm/dL RDW 16.3 H (11.5-15.5) % Neutrophils # 9.3 H (1.3-7.7) k/uL BUN 20 H (7-17) mg/dL C-Reactive Protein 12.4 H (<1.0) mg/dL Assessment and Plan (1) Allergy to multiple antibiotics Current Visit: Yes Status: Acute Code(s): Z88.1 - ALLERGY STATUS TO OTHER ANTIBIOTIC AGENTS SNOMED Code(s): 752728192 (2) Recurrent pneumonia Current Visit: Yes Status: Acute Code(s): J18.9 - PNEUMONIA, UNSPECIFIED ORGANISM SNOMED Code(s): 180429456 Plan: 1patient presented to hospital with increasing shortness of breath cough and is bringing up some purulent sputum with outside CT of the chest did show significant consolidation in the right upper lower lobe concerning for pneumonia patient apparently has similar presentation about a month ago that was treated with oral doxycycline concerning for partially treated versus recurrent pneumonia 2-we will try to obtain a sputum for Gram stain culture check a urine for Legionella antigen 3-patient to be treated with Rocephin 2 g daily and Zithromax while waiting for the workup to be completed Family at the bedside multiple question concern answered We will follow on clinical condition and cultures to further adjust medication if needed Thank you for this consultation we will follow the patient along with you Dictation was produced using [employer] software. please excuse any grammatical, word or spelling errors. Time with Patient: Greater than 30
[2024-03-29] MEDS: LEVOTHYROXINE 75 MCG TAB PO SCH (06:10)
[2024-03-29 06:23] LABS: Anisocytosis Slight; Basophils % (A) 0 %; Eosinophils % (A) 0 %; HCT 34.9 % (34.0-46.0); HGB 10.8 gm/dL (11.4-16.0); Hypochromasia Moderate; Lymphocytes # (A) 0.6 k/uL (1.0-4.8); Lymphocytes % (A) 7 %; MCH 29.3 pg (25.0-35.0); MCV 94.7 fL (80.0-100.0); Mean Platelet Volume 7.3; Monocytes # (A) 0.3 k/uL (0-1.0); Monocytes % (A) 3 %; Neutrophils # (A) 8.2 k/uL (1.3-7.7); Neutrophils % (A) 90 %; Platelet Count 371 k/uL (150-450); RBC 3.69 m/uL (3.80-5.40); RDW 16.1 % (11.5-15.5); WBC 9.1 k/uL (3.8-10.6)
[2024-03-29] MEDS ORDERED: NON FORMULARY DRUG (Fluticasone/Umeclidin/Vilanter [Trelegy Ellipta 100-62.5-25] 1 EACH Bl INHALATION SCH (08:00)
[2024-03-29 08:08] VITALS: BP 97/49; RESP 18
[2024-03-29] MEDS: ENOXAPARIN 40 MG/0.4 ML SYRINGE SQ SCH (08:14)
--- NOTE | 2024-03-29 09:04 | XR ---
EXAMINATION TYPE: XR chest 1V portable DATE OF EXAM: 03/29/2024 8:45 AM COMPARISON: Chest radiograph from two days prior. CLINICAL INDICATION: Female, 79 years old with history of Pneumonia; [facility] TECHNIQUE: XR chest 1V portable Frontal view of the chest. FINDINGS: Lungs/Pleura: Improved aeration of the right lung with persistent airspace opacities. Small right ple ural effusion.Pulmonary vascularity: Unremarkable. Heart/mediastinum: Cardiomediastinal silhouette is unremarkable. Musculoskeletal: No acute osseous pathology. Other findings: None Lines/Tubes: IMPRESSION: Improved aeration of the right lung with persistent airspace opacities. Small right pleural effusion. [facility], , 03/29/2024 9:02 AM
--- NOTE | 2024-03-29 10:22 | P.PN ---
Subjective Progress Note Date: 03/29/24 Principal diagnosis: Pneumonia. Patient is a 79-year-old female with past medical history significant for asthma, previous right lung wedge resection, hypertension, hyperlipidemia, aortic valve stenosis status post TAVR, colon cancer status post bowel resection, left breast cancer status post radiation, and remote history of tobacco use. Primary care provider is Dr. Mitchell. She was transferred from [facility] last night with a diagnosis of pneumonia. Of note, r ecently treated outpatient for pneumonia approximately 1 month ago. She completed her course of doxycycline. Initially felt better. Over the last few days, however, she has been complaining of worsening generalized weakness and poor oral intake. Admits short of breath with exertion and normal daily tasks. Associated productive cough with yellow to green phlegm. Denies hemoptysis. Denies chest pain, but does report left lateral back pain No measured fevers. Denies weight loss. States that her daughter that she lives with had URI-like symptoms approximately 1 week ago. Did test negative for COVID, RSV, influenza at the outside facility. Nonenhanced CT of the chest done at outside facility showing a large consolidation in the posterior aspect of the right upper lobe and right lower lobe with air bronchograms. Multiple enlarged mediastinal lymph nodes, possibly reactive. CBC: WBC count 11.2, hemoglobin 11.1, hematocrit 35.1, platelets 328. CMP: Sodium 137, potassium 3.6, chloride 103, serum bicarb 28, BUN 20, creatinine 0.97, glucose 96. Lactic 0.7. LFTs unremarkable. Troponin 0.015. Patient currently resting comfortably in bed, on room air, no acute distress. Nontoxic appearance. Afebrile. Vitals are stable. She is empirically covered on a combination of azithromycin and Rocephin. Family present. Progress note dated March 29, 2024. 79-year-old female seen in room 162, observation unit. She is currently feeling a lot better. She is sitting at the side of the bed. She is on room air. The patient is not requiring any IV fluids. She continues on azithromycin and Rocephin. She is being treated for community-acquired pneumonia. We did repeat a chest x-ray today, compared to admission chest x-ray. There is improved aeration in the right lung. Opacity still persist though. Clinically she is doing well, and could be considered for possible discharge. Current laboratory includes a white count 9.1, hemoglobin 10.8, macro 34.9, and a normal platelet count. Objective - Vital Signs Vital signs: Vital Signs Temp 97.9 F 03/28/24 20:00 Pulse 72 03/29/24 08:00 Resp 18 03/29/24 08:00 BP 97/49 03/29/24 08:00 Pulse Ox 97 03/29/24 08:00 FiO2 Intake & Output 03/28/24 03/29/24 03/29/24 18:59 06:59 18:59 Intake Total 500 Balance 500 Weight 97.522 kg Intake: Oral 500 Other: # Voids 3 2 # Bowel Movements 0 0 - Exam No acute distress, oriented 3. Currently on room air. No respiratory distress. HEENT examination is grossly unremarkable. Mucous membranes are moist. No oral lesions. Neck supple. Full range of motion. No adenopathy thyromegaly or neck vein distention. Cardiovascular examination reveals regular rhythm rate. S1-S2 normal. No S3 or S4. No discernible murmur noted. Lungs reveal mostly clear breath sounds. Minimal scattered rhonchi. No wheezes or crackles. Abdomen soft bowel sounds are heard. No masses or tenderness. Extremities are intact. No cyanosis clubbing or edema. Skin is without rash or lesion. Neurologic examination is brief but nonfocal. - Labs CBC & Chem 7: 03/29/24 06:15 03/27/24 22:40 Labs: Abnormal Lab Results - Last 24 Hours (Table) 03/29/24 Range/Units 06:15 RBC 3.69 L (3.80-5.40) m/uL Hgb 10.8 L (11.4-16.0) gm/dL RDW 16.1 H (11.5-15.5) % Neutrophils # 8.2 H (1.3-7.7) k/uL Lymphocytes # 0.6 L (1.0-4.8) k/uL Microbiology - Last 24 Hours (Table) 03/27/24 23:30 Gram Stain - Preliminary Sputum Assessment and Plan Assessment: Community-acquired right lower lobe pneumonia. Acute exertional dyspnea, secondary to above. Exacerbation of persistent bronchial asthma, secondary to above. History of aortic valve stenosis, S/P TAVR. History of hypertension. History of hyperlipidemia. History of colon cancer, S/P bowel resection. History of left breast cancer, S/P radiation. History of previous right lung wedge resection. Remote history of tobacco use. Obesity, with a BMI of 43.4 kg/m Plan: Plan dated March 29, 2024. The patient is doing much better. The patient could be discharged home. I would send her home on a combination of azithromycin, plus either Ceftin 500 twice a day, or Omnicef 300 twice a day, for a total of 6 additional days. Labs, x-rays, medications are reviewed. The patient's chest x-ray today is improved. Clinically she is feeling well. Follow-up in the office would be appropriate. No additional recommendations are made. Time with Patient: Less than 30
--- NOTE | 2024-03-29 12:08 | P.DS ---
Providers Date of admission: 03/27/24 22:49 Discharge Diagnosis: Community-acquired pneumonia [place] Hypertension Hyperlipidemia Psoriasis COPD Hypothyroidism Osteoarthritis History of left breast cancer, s/p radiation History of aortic valve stenosis, s/p TAVR Hospital Course: History of present illness; 79-year-old female with a past medical history of asthma, hyperlipidemia, hypertension, OA, recent history of pneumonia (1 month ago), psoriasis, hypothyroidism, and COPD (no home O2) presents with increased shortness of breath and productive cough. Patient reports for the last few days she has noticed her shortness of breath has been worse than usual even with her history of COPD. Patient also reports she has been having productive cough with green-colored sputum. Patient reports she lives at home with her daughter and son-in-law who both recently tested positive for COVID. Patient reports she tested herself and was negative. Initial lab work from the ER was significant for WBC 11.2, hemoglobin 9.1, MCV 92.2, neutrophils 9.3, sodium 137, testing 3.6, bicarb 28, creatinine 0.97, troponin 0.015, CRP 12.4, BNP 2000, and procalcitonin 0.19. EKG done in the ER showed heart rate of 90 bpm, no ST segment elevation or depression seen, no T-wave inversions seen. Sinus rhythm, QTc 387 ER CXR: Widespread right lung airspace opacities. Blunting of the right costophrenic angle. Patient admitted to internal medicine service. Pulmonology consulted. 03/29/2024: Patient seen and examined at bedside. She states she is feeling much better. Repeat CXR showed marked improvement in the right lung. She was cleared by pulmonology. She will be discharged with Ceftin for 5 days and prednisone taper. She is to follow up with pulmonology and her PCP. She is being discharged home. Vital signs reviewed and stable. Physical examination: Vital signs reviewed General: non toxic, no distress, appears at stated age, normal weight Derm: no unusual rashes/lesions, warm Head: atraumatic, normocephalic, symmetric Eyes: EOMI, anicteric sclera, pupils equal round reactive to light ENT: Nose and ears atraumatic Mouth: no lip lesion, mucus membranes moist Cardiovascular: S1S2 reg, no murmur, positive dorsalis pedis pulse bilateral, no edema Lungs: CTA bilateral, no rhonchi, no rales, no accessory muscle use Abdominal: soft, nontender to palpation, no guarding Ext: muscle strength 5 out of 5 in all 4 extremities grossly, no gross muscle atrophy Neuro: CN II-XI grossly intact, no gross focal neuro deficits Psych: Alert, oriented to person, place, and time A total of greater than 30 minutes of time were spent preparing this complex discharge summary. Patient was discharge on March 29, 2024 at 11:41 AM. Attending physician: Reyna Bui MD Consults: 03/27/24 22:51 Consult Physician Urgent Consulting Provider: Tommy Musa Consult Reason/Comments: Recurrent pneumonia Do you want consulting provider notified?: Yes Consult Physician Urgent Consulting Provider: Alejandra Hutton Consult Reason/Comments: Recurrent pneumonia Do you want consulting provider notified?: Yes Primary care physician: Aguilar Mitchell MD Plan - Discharge Summary Discharge Rx Participant: Yes New Discharge Prescriptions: New cefUROXime axetiL [Ceftin] 500 mg PO BID 5 Days #56 tab predniSONE 10 mg PO DAILY 8 Days #20 tab Continue Potassium Chloride ER [K-Dur 20] 20 meq PO DAILY Latanoprost [Xalatan 0.005%] 1 drop BOTH EYES HS allopurinoL [Zyloprim] 300 mg PO DAILY Anastrozole [Arimidex] 1 mg PO DAILY Albuterol Inhaler [Ventolin Hfa Inhaler] 2 puff INHALATION RT-Q6H PRN PRN Reason: Shortness Of Breath Levothyroxine Sodium 150 mcg PO AC-BRKFST Betamethasone Dipropionate [Betamethasone Dipropionate 0.05%] 1 applic TOPICAL BID PRN PRN Reason: Psoriasis Bisoprolol [Zebeta] 5 mg PO DAILY Clopidogrel [Plavix] 75 mg PO DAILY #30 tab Fluticasone Nasal [place] [Flonase Nasal [place]] 2 spray EA NOSTRIL DAILY Mirabegron [Myrbetriq] 50 mg PO DAILY Fluticasone/Umeclidin/Vilanter [Trelegy Ellipta 100-62.5-25] 1 puff INHALATION RT-DAILY Bumetanide [BUMEX] 1 mg PO BID Multivit-Min/Iron/Folic/Lutein [Centrum Silver Women Tablet] 1 each PO DAILY Ipratropium-Albuterol Nebulize [Duoneb 0.5 mg-3 mg/3 ml Soln] 3 ml INHALATION RT-Q4H PRN PRN Reason: Shortness Of Breath Rosuvastatin [Crestor] 10 mg PO DAILY Discharge Medication List Latanoprost [Xalatan 0.005%] 1 drop BOTH EYES HS 09/12/16 [History] Potassium Chloride ER [K-Dur 20] 20 meq PO DAILY 09/12/16 [History] allopurinoL [Zyloprim] 300 mg PO DAILY 09/12/16 [History] Albuterol Inhaler [Ventolin Hfa Inhaler] 2 puff INHALATION RT-Q6H PRN 07/02/21 [History] Anastrozole [Arimidex] 1 mg PO DAILY 07/02/21 [History] Mirabegron [Myrbetriq] 50 mg PO DAILY 07/02/21 [History] Fluticasone/Umeclidin/Vilanter [Trelegy Ellipta 100-62.5-25] 1 puff INHALATION RT-DAILY 12/17/21 [History] Betamethasone Dipropionate [Betamethasone Dipropionate 0.05%] 1 applic TOPICAL BID PRN 06/29/22 [History] Levothyroxine Sodium 150 mcg PO AC-BRKFST 06/29/22 [History] Bisoprolol [Zebeta] 5 mg PO DAILY 08/01/22 [History] Bumetanide [BUMEX] 1 mg PO BID 08/01/22 [History] Multivit-Min/Iron/Folic/Lutein [Centrum Silver Women Tablet] 1 each PO DAILY 09/08/22 [History] Clopidogrel [Plavix] 75 mg PO DAILY #30 tab 09/11/22 [Rx] Fluticasone Nasal [place] [Flonase Nasal [place]] 2 spray EA NOSTRIL DAILY 03/28/24 [History] Ipratropium-Albuterol Nebulize [Duoneb 0.5 mg-3 mg/3 ml Soln] 3 ml INHALATION RT-Q4H PRN 03/28/24 [History] Rosuvastatin [Crestor] 10 mg PO DAILY 03/28/24 [History] cefUROXime axetiL [Ceftin] 500 mg PO BID 5 Days #56 tab 03/29/24 [Rx] predniSONE 10 mg PO DAILY 8 Days #20 tab 03/29/24 [Rx] Follow up Appointment(s)/Referral(s): [facility] [NON-STAFF] - Amanda Gonzalez MD [RESIDENT] - 1 Week Geovani Irving DO [Doctor of Osteopathic Medicine] - 1 Week None,Stated [REFERRING] - 1-2 days Discharge Disposition: HOME WITH HOME HEALTH SERVICES
[2024-03-29 12:41] VITALS: PULSE 79
--- NOTE | 2024-03-29 13:02 | P.PN ---
Subjective Progress Note Date: 03/29/24 Principal diagnosis: Reason for follow-up is pneumonia Patient is a 79-year-old female with a past medical history significant for hypertension hyperlipidemia osteoarthritis pneumonia history of colon cancer and left breast cancer, previous history of lung infection re quiring right lung wedge resection now presented to hospital increasing shortness of breath cough with outpatient CT did shows evidence of large consolidation in the posterior aspect of the right upper lobe with air bronchogram. On today's evaluation that is 03/29/2024, Patient is afebrile this morning patient denies having any chest pain shortness of breath, patient mention cough is decreased intensity not bring up any sputum no nausea vomiting no abdominal pain or diarrhea. Patient white count normalized to 9.1 sputum and blood cultures currently pending Objective - Vital Signs Vital signs: Vital Signs Temp 97.9 F 03/28/24 20:00 Pulse 72 03/29/24 08:00 Resp 18 03/29/24 08:00 BP 97/49 03/29/24 08:00 Pulse Ox 97 03/29/24 08:00 FiO2 Intake & Output 03/28/24 03/29/24 03/29/24 18:59 06:59 18:59 Intake Total 500 Balance 500 Weight 97.522 kg Intake: Oral 500 Other: # Voids 3 2 # Bowel Movements 0 0 - Exam GENERAL DESCRIPTION: An elderly female up in bed in no distress RESPIRATORY SYSTEM: Unlabored breathing , decreased breath sounds at bases HEART: S1 S2 regular rate and rhythm , ABDOMEN: Soft , no tenderness EXTREMITIES: No edema feet - Labs CBC & Chem 7: 03/29/24 06:15 03/27/24 22:40 Labs: Abnormal Lab Results - Last 24 Hours (Table) 03/29/24 Range/Units 06:15 RBC 3.69 L (3.80-5.40) m/uL Hgb 10.8 L (11.4-16.0) gm/dL RDW 16.1 H (11.5-15.5) % Neutrophils # 8.2 H (1.3-7.7) k/uL Lymphocytes # 0.6 L (1.0-4.8) k/uL Microbiology - Last 24 Hours (Table) 03/27/24 23:30 Gram Stain - Preliminary Sputum Assessment and Plan (1) Allergy to multiple antibiotics Current Visit: Yes Status: Acute Code(s): Z88.1 - ALLERGY STATUS TO OTHER ANTIBIOTIC AGENTS SNOMED Code(s): 500701599 (2) Recurrent pneumonia Current Visit: Yes Status: Acute Code(s): J18.9 - PNEUMONIA, UNSPECIFIED ORGANISM SNOMED Code(s): 678738292 Plan: 1patient presented to hospital with increasing shortness of breath cough and is bringing up some purulent sputum with outside CT of the chest did show signific ant consolidation in the right upper lower lobe concerning for pneumonia patient apparently has similar presentation about a month ago that was treated with oral doxycycline concerning for partially treated versus recurrent pneumonia 2-blood and sputum cultures currently pending 3-patient did have improvement in her white count as well as some clinical improvement and has been cleared for discharge by pulmonary I will be recommending waiting for at least culture to be finalized before discharge for now continue with Rocephin Dictation was produced using [email or web address] dictation software. please excuse any grammatical, word or spelling errors. Time with Patient: Less than 30
== END 2024-03-29 13:29 | disposition home health service (06) | DRG 194 ==
LOC: EC 22:08 → 5NMEDONC 22:49 → 1SOBS 03-28 07:05
PROVIDERS: ADMIT Internal Medicine; ATTEND Internal Medicine
DX: J18.9 Pneumonia, unspecified organism (principal); J44.0 Chronic obstructive pulmonary disease with (acute) lower respiratory infection; J45.901 Unspecified asthma with (acute) exacerbation; Z68.41 Body mass index [BMI] 40.0-44.9, adult; E66.9 Obesity, unspecified; L40.9 Psoriasis, unspecified; E03.9 Hypothyroidism, unspecified; Z79.890 Hormone replacement therapy; E78.5 Hyperlipidemia, unspecified; I10 Essential (primary) hypertension; I35.0 Nonrheumatic aortic (valve) stenosis; M19.90 Unspecified osteoarthritis, unspecified site; Z79.811 Long term (current) use of aromatase inhibitors; Z79.899 Other long term (current) drug therapy; Z82.49 Family history of ischemic heart disease and other diseases of the circulatory system; Z85.038 Personal history of other malignant neoplasm of large intestine; Z85.3 Personal history of malignant neoplasm of breast; Z87.01 Personal history of pneumonia (recurrent); Z87.891 Personal history of nicotine dependence; Z88.1 Allergy status to other antibiotic agents; Z90.49 Acquired absence of other specified parts of digestive tract; Z92.3 Personal history of irradiation; Z95.2 Presence of prosthetic heart valve; Z96.1 Presence of intraocular lens; Z98.42 Cataract extraction status, left eye; Z98.41 Cataract extraction status, right eye; Z87.19 Personal history of other diseases of the digestive system; Z88.5 Allergy status to narcotic agent; Z91.040 Latex allergy status; Z91.013 Allergy to seafood; Z91.041 Radiographic dye allergy status; Z79.02 Long term (current) use of antithrombotics/antiplatelets
CPT/HCPCS: 36415; 71045; 71046; 80053; 83605; 83880; 84145; 84484; 85025; 85610; 85730; 86140; 87040; 87070; 87205; 87449; 94640; 94760; 96365; 96366; 96368; 96375; 99285